=== PATIENT | female | born 1935 | race Caucasian/White ===

== ENCOUNTER 2016-11-29 14:42 | Outpatient (CLI) | payer MEDICARE | END 2016-11-29 14:43 | disposition home or self-care (01) | DX: I48.91 Unspecified atrial fibrillation (principal) ==

== ENCOUNTER 2016-12-06 14:24 | Outpatient (CLI) | payer MEDICARE | END 2016-12-06 14:25 | disposition home or self-care (01) | DX: I48.91 Unspecified atrial fibrillation (principal) ==

== ENCOUNTER 2016-12-24 08:00 | Outpatient (CLI) | payer MEDICARE | END 2016-12-24 08:01 | disposition home or self-care (01) | DX: I48.91 Unspecified atrial fibrillation (principal) ==

== ENCOUNTER 2017-01-11 15:21 | Outpatient (CLI) | payer MEDICARE | END 2017-01-11 15:22 | disposition home or self-care (01) | DX: I48.91 Unspecified atrial fibrillation (principal) ==

== ENCOUNTER 2017-01-28 14:13 | Outpatient (CLI) | payer MEDICARE | END 2017-01-28 14:14 | disposition home or self-care (01) | DX: I48.91 Unspecified atrial fibrillation (principal) ==

== ENCOUNTER 2017-02-27 14:41 | Outpatient (CLI) | payer MEDICARE | END 2017-02-27 14:42 | disposition home or self-care (01) | DX: I48.91 Unspecified atrial fibrillation (principal) ==

== ENCOUNTER 2017-03-18 13:18 | Outpatient (CLI) | payer MEDICARE | END 2017-03-18 13:19 | disposition home or self-care (01) | DX: I48.91 Unspecified atrial fibrillation (principal) ==

== ENCOUNTER 2017-03-26 13:52 | Outpatient (CLI) | payer MEDICARE | END 2017-03-26 13:53 | disposition home or self-care (01) | DX: I48.91 Unspecified atrial fibrillation (principal) ==

== ENCOUNTER 2017-04-02 12:57 | Outpatient (CLI) | payer MEDICARE | END 2017-04-02 12:58 | disposition home or self-care (01) | LOC: LAB.F 12:57 | PROVIDERS: ATTEND Internal Medicine | DX: I48.91 Unspecified atrial fibrillation (principal) | CPT/HCPCS: 85610 ==

== ENCOUNTER 2017-04-17 14:10 | Outpatient (CLI) | payer MEDICARE ==
[2017-04-17 18:17] LABS: BUN - BLOOD UREA NITROGEN 21 mg/dL (6-20); CALCIUM 9.4 mg/dL (8.5-10.3); CARBON DIOXIDE - CO2 26 mmol/L (21-32); CHLORIDE 103 mmol/L (101-111); GFR - MDRD 53 (>89); GLUCOSE 121 mg/dL (70-100); POTASSIUM 4.2 mmol/L (3.5-5.0); SODIUM 139 mmol/L (135-145)
== END 2017-04-17 14:11 | disposition home or self-care (01) ==
LOC: LAB.F 14:10
PROVIDERS: ATTEND Internal Medicine
DX: I48.91 Unspecified atrial fibrillation (principal)
CPT/HCPCS: 36415; 80048; 80162; 85610

== ENCOUNTER 2017-05-02 14:20 | Outpatient (CLI) | payer MEDICARE | END 2017-05-02 14:21 | disposition home or self-care (01) | LOC: LAB.F 14:20 | PROVIDERS: ATTEND Internal Medicine | DX: I48.91 Unspecified atrial fibrillation (principal) | CPT/HCPCS: 85610 ==

== ENCOUNTER 2017-05-03 11:52 | Outpatient (CLI) | payer MEDICARE ==
[2017-05-03 12:25] LABS: BASOPHILS % (AUTO) 0.5 %; EOSINOPHILS % (AUTO) 2.2 %; HCT - HEMATOCRIT 32.5 % (37.0-47.0); HGB - HEMOGLOBIN 11.3 g/dL (12.0-16.0); LYMPHOCYTES % (AUTO) 25.4 %; MEAN CORPUSCULAR HEMOGLOBIN 31.7 pg (27.0-31.0); MEAN CORPUSCULAR HGB CONC 34.8 g/dL (32.0-36.0); MEAN CORPUSCULAR VOLUME 91.2 fL (81.0-99.0); MONOCYTES % (AUTO) 8.1 %; NEUTROPHILS % (AUTO) 63.8 %; RED BLOOD COUNT 3.56 10^6/uL (4.20-5.40); RED CELL DISTRIBUTION WIDTH 22.8 % (12.0-15.0); UNCORRECTED WHITE BLOOD COUNT 13.7 x10^3/uL; WHITE BLOOD COUNT 13.7 x10^3/uL (4.8-10.8)
[2017-05-03 12:41] LABS: ALBUMIN/GLOBULIN RATIO 1.9 (1.0-2.2); BILIRUBIN,TOTAL 1.2 mg/dL (0.2-1.0); CALCIUM 9.7 mg/dL (8.5-10.3); CREATININE 0.9 mg/dL (0.4-1.0); POTASSIUM 4.6 mmol/L (3.5-5.0)
[2017-05-03 12:50] LABS: BAND NEUTROPHILS % (MANUAL) 5 %; BASOPHILS % (MANUAL) 4 %; EOSINOPHILS % (MANUAL) 2 %; LYMPHOCYTES % (MANUAL) 31 %; NEUTROPHILS % (MANUAL) 37 %; TOTAL CELLS COUNTED 100
[2017-05-03 12:51] LABS: NP AUTO DIFFERENTIAL? YES
[2017-05-03 12:52] LABS: NP MAN DIFFERENTIAL? NO
== END 2017-05-03 11:53 | disposition home or self-care (01) ==
LOC: LAB 11:52
PROVIDERS: ATTEND Internal Medicine
DX: R10.9 Unspecified abdominal pain (principal)
CPT/HCPCS: 36415; 80053; 85025; 87077; 87086

== ENCOUNTER 2017-05-08 14:58 | Outpatient (CLI) | payer MEDICARE ==
--- NOTE | 2017-05-09 19:33 | XRAY Report ---
AP PELVIS: 05/08/2017 CLINICAL HISTORY: Patient has right low back pain. FINDINGS: AP pelvis vascular calcification is detected in the branches of the iliac arteries within the pelvis. There are some calcifications within the uterus. These measure 1.5 cm and 1.5 cm, respectively. These most likely represent small calcified fibroids. SI joints are normal. Hips show no significant abnormality. Mild spurring is noted in the lumbar spine at L4 and L5. Mild disk space narrowing is noted at L4-5. There are small calculi noted in the lower pole of each kidney. In the right lower pole, there is a 0.7 cm calculus. In the left lower pole, there is a 0.5 cm calculus. The bones of the pelvis are quite dense. This may be a result of renal osteodystrophy or myelofibrosis/myeloid metaplasia. IMPRESSION: 1. SI JOINTS AND HIPS SHOW NO SIGNIFICANT ABNORMALITY. 2. TWO CALCIFICATIONS ARE NOTED IN THE UTERUS, EACH MEASURING 1.5 CM. THEY PROBABLY RESIDE WITHIN THE UTERINE FIBROIDS. 3. A 0.7 CM CALCULUS IS NOTED IN THE LOWER POLE OF THE RIGHT KIDNEY, A 0.5 CM CALCULUS IS NOTED IN THE LOWER POLE OF THE LEFT KIDNEY. 4. MILD OSTEOARTHRITIS IS SEEN IN THE LOWER LUMBAR SPINE. 5. THE BONES OF THE PELVIS ARE DENSER THAN NORMAL. THIS MAY BE A RESULT OF RENAL OSTEODYSTROPHY VERSUS MYELOFIBROSIS/MYELOID METAPLASIA. JOB #: [id number] EXT JOB #: [id number] ERICA
--- NOTE | 2017-05-09 19:45 | XRAY Report ---
LUMBAR SPINE: 05/08/2017 CLINICAL HISTORY: Abdominal organs and soft tissue demonstrate multiple small calculi noted in the kidneys bilaterally. There are nine small calculi at least in the right kidney, varying in size from a few millimeters to 0.7 cm. In the left kidney, there are three calculi noted, varying in size from a few millimeters to 0.5 cm. Moderate degree of splenomegaly is noted. Vascular calcification is noted in the abdominal aorta and its iliac branches. Mild anterior spurring is detected in the lumbar spine. Moderate degree of disk space narrowing is noted at L2-3 and L4-5. Minor Schmorl's node deformities are seen along the superior surface of L3, L4, and L5. Mild progression of degenerative disk disease is seen at L2-3 and L4-5 since preceding exam of 08/04/2009. There is a sclerotic lesion noted superimposed over the right side of T12. It resides in the soft tissues of the anterior abdomen immediately anterior to the right lobe of the liver. This was seen on prior CT exam of 10/27/2016. On prior CT exam and on present plain film exams, both of the pelvis and lumbar spine, the bones appear more sclerotic than usually noted. This raises concern either of a renal osteodystrophy or myelofibrosis/myeloid metaplasia. IMPRESSION: 1. GENERALIZED SCLEROSIS IS NOTED IN THE BONES OF THE LUMBAR SPINE AND PELVIS. PRIMARY CONSIDERATION IS MYELOFIBROSIS/MYELOID METAPLASIA. THERE IS ASSOCIATED MODERATE DEGREE OF SPLENOMEGALY SEEN. 2. DEGENERATIVE DISK DISEASE IS NOTED AT L2-3 AND L4-5 WITH PROGRESSION COMPARED TO PRECEDING LUMBAR SPINE EXAM OF 08/04/2009. 3. MULTIPLE BILATERAL SMALL RENAL CALCULI ARE NOTED DESCRIBED ABOVE. 4. SOFT TISSUE CALCIFICATION WITHIN THE ANTERIOR ABDOMEN IS SEEN SUPERIMPOSED OVER THE RIGHT SIDE OF T12. JOB #: [id number] EXT JOB #: [id number] [facility] [place] [facility]
== END 2017-05-08 14:59 | disposition home or self-care (01) ==
LOC: DI 14:58
PROVIDERS: ATTEND Internal Medicine
DX: M51.36 Other intervertebral disc degeneration, lumbar region (principal); M89.9 Disorder of bone, unspecified; N20.0 Calculus of kidney; N85.8 Other specified noninflammatory disorders of uterus; M47.896 Other spondylosis, lumbar region; R16.1 Splenomegaly, not elsewhere classified
CPT/HCPCS: 72100; 72170

== ENCOUNTER 2017-05-22 12:06 | Outpatient (CLI) | payer MEDICARE ==
--- NOTE | 2017-05-22 13:05 | XRAY Report ---
TWO-VIEW CHEST: 05/22/2017 CLINICAL INDICATION: Hypoxemia, cough, lethargy. COMPARISON: 10/29/2016 FINDINGS: Frontal and lateral views of the chest demonstrate a normal cardiac silhouette. Left subc lavian dual-chamber pacemaker is stable. The lungs are now clear. Previously seen right middle lobe infiltrate and effusion have resolved. No new consolidation, effusion, or pneumothorax is present. IMPRESSION: NO EVIDENCE OF ACUTE CARDIOPULMONARY DISEASE. JOB #: [id number] EXT JOB #:[id number]
== END 2017-05-22 12:07 | disposition home or self-care (01) ==
LOC: DI 12:06
PROVIDERS: ATTEND Internal Medicine
DX: R09.02 Hypoxemia (principal)
CPT/HCPCS: 71020

== ENCOUNTER 2017-05-28 13:56 | Outpatient (CLI) | payer MEDICARE | END 2017-05-28 13:57 | disposition home or self-care (01) | DX: N30.90 Cystitis, unspecified without hematuria (principal) ==

== ENCOUNTER 2017-06-11 08:00 | Outpatient (CLI) | payer MEDICARE | END 2017-06-11 08:01 | disposition home or self-care (01) | LOC: LAB.R 08:00 | PROVIDERS: ATTEND Internal Medicine | DX: R82.5 Elevated urine levels of drugs, medicaments and biological substances (principal); R30.0 Dysuria | CPT/HCPCS: 87086 ==

== ENCOUNTER 2017-06-12 14:59 | Outpatient (CLI) | payer MEDICARE | END 2017-06-12 15:00 | disposition home or self-care (01) | LOC: LAB.F 14:59 | PROVIDERS: ATTEND Internal Medicine | DX: I10 Essential (primary) hypertension (principal); R06.00 Dyspnea, unspecified; R53.83 Other fatigue; Z79.899 Other long term (current) drug therapy | CPT/HCPCS: 36415; 80162; 83880; 85651; 86140 ==

== ENCOUNTER 2017-06-13 13:22 | Outpatient (CLI) | payer MEDICARE | END 2017-06-13 13:23 | disposition home or self-care (01) | LOC: LAB.F 13:22 | PROVIDERS: ATTEND Internal Medicine | DX: I48.91 Unspecified atrial fibrillation (principal) | CPT/HCPCS: 85610 ==

== ENCOUNTER 2017-07-11 13:50 | Outpatient (CLI) | payer MEDICARE | END 2017-07-11 13:51 | disposition home or self-care (01) | LOC: LAB.F 13:50 | PROVIDERS: ATTEND Internal Medicine | DX: I48.91 Unspecified atrial fibrillation (principal) | CPT/HCPCS: 85610 ==

== ENCOUNTER 2017-07-25 13:54 | Outpatient (CLI) | payer MEDICARE | END 2017-07-25 13:55 | disposition home or self-care (01) | LOC: LAB.F 13:54 | PROVIDERS: ATTEND Internal Medicine | DX: I48.91 Unspecified atrial fibrillation (principal) | CPT/HCPCS: 85610 ==

== ENCOUNTER 2017-08-01 15:10 | Outpatient (CLI) | payer MEDICARE | END 2017-08-01 15:11 | disposition home or self-care (01) | LOC: LAB.F 15:10 | PROVIDERS: ATTEND Internal Medicine | DX: I48.91 Unspecified atrial fibrillation (principal) | CPT/HCPCS: 85610 ==

== ENCOUNTER 2017-09-02 15:02 | Outpatient (CLI) | payer MEDICARE | END 2017-09-02 15:03 | disposition home or self-care (01) | LOC: LAB.F 15:02 | PROVIDERS: ATTEND Internal Medicine | DX: I48.91 Unspecified atrial fibrillation (principal) | CPT/HCPCS: 85610 ==

== ENCOUNTER 2017-09-30 13:28 | Outpatient (CLI) | payer MEDICARE | END 2017-09-30 13:29 | disposition home or self-care (01) | LOC: LAB.F 13:28 | PROVIDERS: ATTEND Internal Medicine | DX: I48.91 Unspecified atrial fibrillation (principal) | CPT/HCPCS: 85610 ==

== ENCOUNTER 2017-10-14 15:05 | Outpatient (CLI) | payer MEDICARE | END 2017-10-14 15:06 | disposition home or self-care (01) | LOC: LAB.F 15:05 | PROVIDERS: ATTEND Internal Medicine | DX: I48.91 Unspecified atrial fibrillation (principal) | CPT/HCPCS: 85610 ==

== ENCOUNTER 2017-11-04 11:42 | Outpatient (CLI) | payer MEDICARE ==
--- NOTE | 2017-11-07 12:28 | Ultrasound Report ---
[address] [address] DATE OF SERVICE: 11/04/2017 Physician: Josr Morales MD ANKLE BRACHIAL INDEX: 11/04/2017 CLINICAL INDICATION: Bilateral claudication. TECHNIQUE: Real-time sonographic vascular imaging was performed by the galley boy through the [] utilizing both color-flow and Doppler flow analysis. Multiple event sales representative static images were saved for review. 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 IMPRESSION: MILDLY DECREASED LEFT DAYSI. NORMAL RIGHT DAYSI. TY/ TD: 11[facility]04/2017 17[facility]00 [facility]
== END 2017-11-04 11:43 | disposition home or self-care (01) ==
LOC: DI 11:42
PROVIDERS: ATTEND Physician Assistant Medical
DX: I73.9 Peripheral vascular disease, unspecified (principal); G47.62 Sleep related leg cramps
CPT/HCPCS: 93922

== ENCOUNTER 2017-11-07 15:04 | Outpatient (CLI) | payer MEDICARE | END 2017-11-07 15:05 | disposition home or self-care (01) | LOC: LAB.F 15:04 | PROVIDERS: ATTEND Internal Medicine | DX: I48.91 Unspecified atrial fibrillation (principal) | CPT/HCPCS: 85610 ==

== ENCOUNTER 2017-11-23 12:42 | Outpatient (CLI) | payer MEDICARE ==
[~2017-11-23 12:42] MED LIST: IOPAMIDOL-300 100 ML VIAL ONE; IOPAMIDOL-300 50 ML VIAL ONE
[2017-11-23] MEDS ORDERED: IOPAMIDOL-300 50 ML VIAL PO ONE (15:07)
[2017-11-23] MEDS ORDERED: IOPAMIDOL-300 100 ML VIAL IVP ONE (15:07)
--- NOTE | 2017-11-23 17:12 | CT Report ---
EXAM: CT ABDOMEN AND PELVIS EXAM DATE: 11/23/2017 03:17 PM. CLINICAL HISTORY: Abdominal pain. COMPARISONS: None. TECHNIQUE: Routine helical CT imaging was performed through the abdomen and pelvis. IV contrast: 100M L OF ISOVUE 300. Enteric contrast: Positive. Reconstructions: Coronal and sagittal. In accordance with CT protocol optimization, one or more of the following dose reduction techniques w ere utilized for this exam: automated exposure control, adjustment of mA and/or KV based on patient s ize, or use of iterative reconstructive technique. FINDINGS: Lung Bases: Unremarkable. Liver: There are several fluid density foci within the liver which likely represent cysts. There is a peripherally calcified lesion at the anterior margin of the left hepatic lobe. Gallbladder/Bile Ducts: Unremarkable. Spleen: There is splenomegaly. Pancreas: Normal. Adrenal Glands: Normal. Kidneys: There is bilateral nephrolithiasis. No evidence of distal obstructing stone or hydronephrosi s. Peritoneal Cavity/Bowel: Stomach and small bowel demonstrate no acute abnormalities. There are no enl arged mesenteric or retroperitoneal lymph nodes. There is a small amount of free fluid within the pel vis. There is moderate stool within colon. No evidence of appendicitis. Pelvic Organs: There are calcified uterine fibroids. No significant adnexal abnormalities are seen. U rinary bladder is unremarkable. Vasculature: No aneurysms or other significant abnormality. Bones: There is diffuse bony sclerosis with discrete lytic lesions. Other: None. IMPRESSION: 1. There is splenomegaly. No enlarged lymph nodes are seen. 2. Fluid density foci within the liver likely represent cysts. 3. There is nephrolithiasis. No evidence of distal obstructing stone or hydronephrosis. 4. There are calcified uterine fibroids. 5. There is moderate stool within distal colon. 6. There is diffuse bony sclerosis with discrete lytic lesions. [facility] Referring Provider Line: [phone] SITE ID: [id number]
== END 2017-11-23 12:43 | disposition home or self-care (01) ==
LOC: DI 12:42
PROVIDERS: ATTEND Physician Assistant Medical
DX: R16.1 Splenomegaly, not elsewhere classified (principal); N20.0 Calculus of kidney; D25.9 Leiomyoma of uterus, unspecified; M89.9 Disorder of bone, unspecified
CPT/HCPCS: 74177; Q9967

== ENCOUNTER 2017-12-03 14:49 | Outpatient (CLI) | payer MEDICARE | END 2017-12-03 14:50 | disposition home or self-care (01) | LOC: LAB.F 14:49 | PROVIDERS: ATTEND Internal Medicine | DX: I48.91 Unspecified atrial fibrillation (principal) | CPT/HCPCS: 85610 ==

== ENCOUNTER 2017-12-19 14:03 | Outpatient (CLI) | payer MEDICARE | END 2017-12-19 14:04 | disposition home or self-care (01) | LOC: LAB.F 14:03 | PROVIDERS: ATTEND Internal Medicine | DX: I48.91 Unspecified atrial fibrillation (principal) | CPT/HCPCS: 85610 ==

== ENCOUNTER 2018-01-03 10:20 | Outpatient (CLI) | payer MEDICARE | END 2018-01-03 10:21 | disposition home or self-care (01) | LOC: LAB.F 10:20 | PROVIDERS: ATTEND Internal Medicine | DX: I48.91 Unspecified atrial fibrillation (principal) | CPT/HCPCS: 85610 ==

== ENCOUNTER 2018-01-09 13:12 | Outpatient (CLI) | payer MEDICARE ==
[2018-01-09 17:33] LABS: PT - PROTHROMBIN TIME 22.3 secs (9.9-12.6)
== END 2018-01-09 13:13 | disposition home or self-care (01) ==
LOC: LAB.F 13:12
PROVIDERS: ATTEND Internal Medicine
DX: I48.91 Unspecified atrial fibrillation (principal)
CPT/HCPCS: 36415; 85610

== ENCOUNTER 2018-01-17 10:10 | Outpatient (CLI) | payer MEDICARE | END 2018-01-17 10:11 | disposition home or self-care (01) | LOC: LAB.F 10:10 | PROVIDERS: ATTEND Dermatology MOHS-Micrographic Surgery | DX: Z01.812 Encounter for preprocedural laboratory examination (principal) | CPT/HCPCS: 85610 ==

== ENCOUNTER 2018-02-17 14:32 | Outpatient (CLI) | payer MEDICARE | END 2018-02-17 14:33 | disposition home or self-care (01) | LOC: LAB.F 14:32 | PROVIDERS: ATTEND Internal Medicine | DX: I48.91 Unspecified atrial fibrillation (principal) | CPT/HCPCS: 85610 ==

== ENCOUNTER 2018-02-19 16:50 | Outpatient (CLI) | payer MEDICARE ==
[2018-02-19 17:15] LABS: ALBUMIN 5.2 g/dL (3.2-5.5); ALBUMIN/GLOBULIN RATIO 1.8 (1.0-2.2); BILIRUBIN,TOTAL 1.1 mg/dL (0.2-1.0); CALCIUM 9.8 mg/dL (8.5-10.3); TOTAL PROTEIN 8.1 g/dL (6.7-8.2)
[2018-02-19 18:02] LABS: BASOPHILS % (AUTO) 2.3 %; EOSINOPHILS % (AUTO) 0.8 %; HGB - HEMOGLOBIN 12.3 g/dL (12.0-16.0); LYMPHOCYTES % (AUTO) 16.2 %; MEAN CORPUSCULAR HGB CONC 34.1 g/dL (32.0-36.0); MEAN PLATELET VOLUME 7.7 fL (7.9-10.8); MONOCYTES % (AUTO) 8.7 %; PLT - PLATELET COUNT 200 10^3/uL (130-450); RED CELL DISTRIBUTION WIDTH 22.3 % (12.0-15.0)
[2018-02-19 18:15] LABS: ABNORMAL LYMPHS % (MANUAL) 0 %
[2018-02-19 18:47] LABS: BAND NEUTROPHILS % (MANUAL) 3 %; BASOPHILS # (MANUAL) 0.3 10^3/uL (0-0.1); BASOPHILS % (MANUAL) 1 %; EOSINOPHILS # (MANUAL) 0.3 10^3/uL (0-0.7); LYMPHOCYTES # (MANUAL) 5.5 10^3/uL (1.5-3.5); LYMPHOCYTES % (MANUAL) 19 %; METAMYELOCYTES % (MANUAL) 1 %; MONOCYTES # (MANUAL) 1.7 10^3/uL (0.0-1.0); MYELOCYTES % (MANUAL) 2 %; NEUTROPHILS # (MANUAL) 20.3 10^3/uL (1.5-6.6); NEUTROPHILS % (MANUAL) 67 %; PLATELET ESTIMATE, MANUAL NORMAL (130-450,000) (NORMAL); PLATELET MORPHOLOGY NORMAL APPEARANCE (NORMAL)
[2018-02-19 18:48] LABS: DIFFERENTIAL COMMENT MANUAL DIFFERENTIAL
--- NOTE | 2018-02-20 11:52 | XRAY Report ---
CHEST, TWO VIEWS: 02/19/2018 HISTORY: Shortness of breath. COMPARISON: 05/22/2017. FINDINGS: The heart is borderline in size. Dual-lead left subclavian transvenous pacemaker in place. No pleural effusion or pneumothorax. Increased density along the right heart border suspicious for right middle lobe air space process. Lungs otherwise clear. Mixed sclerotic and lytic lesions in the bony structures as previously demonstrated by CT. Anterior upper abdominal calcification, also previously seen by CT. IMPRESSION: FINDINGS WORRISOME FOR RIGHT MIDDLE LOBE AIRSPACE PROCESS. SUGGEST FOLLOWUP CHEST X-RAY IN 4-6 WEEKS AFTER ANY APPROPRIATE MEDICAL THERAPY. TD: 02/20/2018 11:51 ERICA
== END 2018-02-19 16:51 | disposition home or self-care (01) ==
LOC: DI 16:50
PROVIDERS: ATTEND Internal Medicine
DX: R06.00 Dyspnea, unspecified (principal)
CPT/HCPCS: 36415; 71046; 80053; 85025

== ENCOUNTER 2018-03-12 14:21 | Outpatient (CLI) | payer MEDICARE | END 2018-03-12 14:22 | disposition home or self-care (01) | LOC: LAB.F 14:21 | PROVIDERS: ATTEND Internal Medicine | DX: I48.91 Unspecified atrial fibrillation (principal) | CPT/HCPCS: 85610 ==

== ENCOUNTER 2018-03-31 14:18 | Outpatient (CLI) | payer MEDICARE | END 2018-03-31 14:19 | disposition home or self-care (01) | LOC: LAB.F 14:18 | PROVIDERS: ATTEND Internal Medicine | DX: I48.91 Unspecified atrial fibrillation (principal) | CPT/HCPCS: 85610 ==

== ENCOUNTER 2018-04-08 13:44 | Outpatient (CLI) | payer MEDICARE | END 2018-04-08 13:45 | disposition home or self-care (01) | LOC: LAB.F 13:44 | PROVIDERS: ATTEND Internal Medicine | DX: I48.91 Unspecified atrial fibrillation (principal) | CPT/HCPCS: 85610 ==

== ENCOUNTER 2018-04-24 14:46 | Outpatient (CLI) | payer MEDICARE | END 2018-04-24 14:47 | disposition home or self-care (01) | LOC: LAB.F 14:46 | PROVIDERS: ATTEND Internal Medicine | DX: I48.91 Unspecified atrial fibrillation (principal) | CPT/HCPCS: 85610 ==

== ENCOUNTER 2018-05-09 00:40 | Outpatient (CLI) | payer MEDICARE | END 2018-05-09 00:41 | disposition critical access hospital (66) | LOC: EMS 00:40 | PROVIDERS: ATTEND Surgery | DX: R42 Dizziness and giddiness (principal); R11.0 Nausea; R53.1 Weakness | CPT/HCPCS: A0425; A0429 ==

== ENCOUNTER 2018-05-09 01:21 | Emergency (ER) | payer MEDICARE ==
[2018-05-09 02:10] LABS: BILIRUBIN,URINE NEGATIVE (NEGATIVE); GLUCOSE, URINE (UA) NEGATIVE (NEGATIVE); KETONES,URINE (UA) NEGATIVE (NEGATIVE); LEUKOCYTE ESTERASE, URINE TRACE (NEGATIVE); NITRITE,URINE NEGATIVE (NEGATIVE); OCCULT BLOOD,URINE NEGATIVE (NEGATIVE); PH,URINE 6.5 PH (5.0-7.5); PROTEIN,URINE NEGATIVE (NEGATIVE); UROBILINOGEN,URINE 0.2 (NORMAL) E.U./dL (NORMAL)
[2018-05-09 02:11] LABS: CLARITY,URINE CLEAR (CLEAR)
--- NOTE | 2018-05-09 02:13 | ED Physician Documentation ---
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 denies h/o similar symptoms Review of Systems Constitutional: reports: Reviewed and negative Eyes: reports: Reviewed and negative Ears: reports: Reviewed and negative Nose: reports: Reviewed and negative Cardiac: reports: Reviewed and negative Respiratory: reports: Reviewed and negative GI: reports: Nausea. denies: Abdominal Pain, Vomiting : reports: Frequency. denies: Dysuria PD PAST MEDICAL HISTORY - Past Medical History Cardiovascular: Atrial fibrillation Respiratory: None Endocrine/Autoimmune: None GI: GERD : None HEENT: None Psych: None Musculoskeletal: None - Past Surgical History Past Surgical History: Yes Cardiovascular: Pacemaker Derm: Skin cancer surgery - Present Medications Home Medications: Ambulatory Orders Medication Instructions Recorded Confirmed Acetaminophen [Pain Reliever] 325 mg PO Q6H PRN 04/02/13 03/18/18 Digoxin 125 mcg PO DAILY 04/02/13 03/18/18 Warfarin [Coumadin] 5 mg PO DAILY 06/30/13 03/18/18 Diltiazem HCl [Cartia Xt] 300 mg PO DAILY 04/19/15 03/18/18 Ruxolitinib Phosphate [Jakafi] 10 mg PO BID 02/19/17 03/18/18 Meclizine HCl 25 mg PO Q6HR PRN #20 tablet 05/09/18 Nitrofurantoin [Macrobid] 100 mg PO BID #14 capsule 05/09/18 Ondansetron Odt [Zofran] 4 mg TL Q6H PRN #10 tablet 05/09/18 - Allergies Allergies/Adverse Reactions: Allergies Allergy/AdvReac Type Severity Reaction Status Date / Time clopidogrel bisulfate * Allergy Unknown unknown Verified 05/09/18 01:30 [From Plavix] - Social History Does the pt smoke?: No Smoking Status: Never smoker Does the pt have substance abuse?: No - Immunizations Immunizations: TDAP >10years/unknown PD ED PE NORMAL - Vitals Vital signs reviewed: Yes - General General: Alert and oriented X 3, No acute distress, Well developed/nourished - HEENT HEENT: PERRL, EOMI, Ears normal, Moist mucous membranes - Neck Neck: Supple, no meningeal sign - Cardiac Cardiac: RRR, No murmur, No gallop, No rub - Respiratory Respiratory: No respiratory distress, Clear bilaterally - Abdomen Abdomen: Soft, Non tender - Neuro Neuro: Alert and oriented X 3, visual basic developer 2-12 intact, No motor deficit, No sensory deficit, Normal speech Eye Opening: Spontaneous Motor: Obeys Commands Verbal: Oriented GCS Score: 15 Results - Vitals Vitals: Oxygen O2 Source Room air - EKG (time done) No standard instances Rate: Rate (enter#) (70) Rhythm: Paced [place]: Normal Intervals: Normal MT QRS: Normal Ischemia: Normal ST segments - Labs Labs: Microbiology 05/09/18 01:50 Urine Culture - Preliminary Urine,Clean Catch Laboratory Tests 05/09/18 05/09/18 05/09/18 01:50 02:25 02:25 WBC RBC Hgb Hct MCV MCH MCHC RDW Plt Count MPV Neut # (Auto) Lymph # (Auto) Luna # (Auto) Eos # (Auto) Baso # (Auto) Absolute Nucleated RBC Total Counted Band Neuts % (Manual) Abnorm Lymph % (Manual) Metamyelocytes % Myelocytes % Nucleated RBC % Neutrophils # (Manual) Lymphocytes # (Manual) Monocytes # (Manual) Eosinophils # (Manual) Basophils # (Manual) Nucleated RBCs Differential Comment Platelet Estimate RBC Morph Micro Appear Sodium Potassium Chloride Carbon Dioxide Anion Gap BUN Creatinine Estimated GFR (MDRD) Glucose Calcium Total Bilirubin AST ALT Alkaline Phosphatase Total Creatine Kinase 57 CK-MB (CK-2) 1.9 Troponin I < 0.04 Total Protein Albumin Globulin Albumin/Globulin Ratio Lipase Urine Color YELLOW Urine Clarity CLEAR Urine pH 6.5 Ur Specific [place] 1.010 Urine Protein NEGATIVE Urine Glucose (UA) NEGATIVE Urine Ketones NEGATIVE Urine Occult Blood NEGATIVE Urine Nitrite NEGATIVE Urine Bilirubin NEGATIVE Urine Urobilinogen 0.2 (NORMAL) Ur Leukocyte Esterase TRACE H Urine RBC 0-5 Urine WBC 6-10 H Ur Squamous Epith Cells FEW Squamous Urine Bacteria Few Urine Culture Comments INDICATED Last Dose Date Last Dose Time Digoxin 05/09/18 05/09/18 05/09/18 02:25 02:25 02:25 WBC 11.7 H RBC 3.59 L Hgb 11.1 L Hct 32.3 L MCV 90.0 MCH 31.0 MCHC 34.4 RDW 21.0 H Plt Count 119 L MPV 7.4 L Neut # (Auto) Not Reportable Lymph # (Auto) Not Reportable Luna # (Auto) Not Reportable Eos # (Auto) Not Reportable Baso # (Auto) Not Reportable Absolute Nucleated RBC Not Reportable Total Counted 100 Band Neuts % (Manual) 9 Abnorm Lymph % (Manual) 0 Metamyelocytes % 2 H Myelocytes % 2 H Nucleated RBC % Not Reportable Neutrophils # (Manual) 7.8 H Lymphocytes # (Manual) 2.1 Monocytes # (Manual) 0.9 Eosinophils # (Manual) 0.4 Basophils # (Manual) 0.0 Nucleated RBCs 1 Differential Comment MANUAL DIFFERENTIAL Platelet Estimate DECREASED (<130,000) RBC Morph Micro Appear 1+ TEARDROP CELLS Sodium 135 Potassium 4.1 Chloride 102 Carbon Dioxide 26 Anion Gap 7.0 BUN 27 H Creatinine 1.0 Estimated GFR (MDRD) 53 L Glucose 109 H Calcium 9.2 Total Bilirubin 0.9 AST 29 ALT 22 Alkaline Phosphatase 54 Total Creatine Kinase CK-MB (CK-2) Troponin I Total Protein 7.0 Albumin 4.4 Globulin 2.6 Albumin/Globulin Ratio 1.7 Lipase 36 Urine Color Urine Clarity Urine pH Ur Specific [place] Urine Protein Urine Glucose (UA) Urine Ketones Urine Occult Blood Urine Nitrite Urine Bilirubin Urine Urobilinogen Ur Leukocyte Esterase Urine RBC Urine WBC Ur Squamous Epith Cells Urine Bacteria Urine Culture Comments Last Dose Date UNKNOWN Last Dose Time UNKNOWN Digoxin 0.7 PD MEDICAL DECISION MAKING - ED course Complexity details: reviewed results, re-evaluated patient, considered differential, d/w patient, d/w family ED course: on reevaluation, after tsts resulted and administered zofran and antivert, patient reported improvement in symptoms. NAD prior to discharge. - Sepsis Event Vital Signs: Oxygen O2 Source Room air Departure - Departure Disposition: 01 Home, Self Care Clinical Impression: Dizziness Condition: Good Instructions: ED Dizziness UKO, Meclizine, ED Vertigo Unspecified Follow-Up: Leodan Eric MD [Primary Care Provider] - Within 3 Days Prescriptions: Meclizine HCl 25 mg PO Q6HR PRN #20 tablet PRN Reason: Dizziness Nitrofurantoin [Macrobid] 100 mg PO BID #14 capsule Ondansetron Odt [Zofran] 4 mg TL Q6H PRN #10 tablet PRN Reason: Nausea / Vomiting Discharge Date/Time: 05/09/18 04:01
[2018-05-09 02:17] LABS: BACTERIA,URINE Few /HPF (None Seen); RBC,URINE 0-5 /HPF (0-5); SQUAMOUS EPITHELIAL CELL,UR FEW Squamous (<= Few)
[2018-05-09] MEDS ORDERED: MECLIZINE 12.5 MG TABLET PO STA (02:34)
[2018-05-09] MEDS ORDERED: ONDANSETRON ODT 4 MG TABLET TL STA (02:35)
[2018-05-09 02:52] LABS: ALBUMIN 4.4 g/dL (3.2-5.5); ALBUMIN/GLOBULIN RATIO 1.7 (1.0-2.2); BILIRUBIN,TOTAL 0.9 mg/dL (0.2-1.0); CALCIUM 9.2 mg/dL (8.5-10.3)
[2018-05-09 02:54] LABS: BASOPHILS % (AUTO) 2.5 %; EOSINOPHILS % (AUTO) 1.8 %; HGB - HEMOGLOBIN 11.1 g/dL (12.0-16.0); LYMPHOCYTES % (AUTO) 17.6 %; MEAN CORPUSCULAR HGB CONC 34.4 g/dL (32.0-36.0); MEAN PLATELET VOLUME 7.4 fL (7.9-10.8); MONOCYTES % (AUTO) 8.2 %; NEUTROPHILS % (AUTO) 69.9 %; PLT - PLATELET COUNT 119 10^3/uL (130-450); RED BLOOD COUNT 3.59 10^6/uL (4.20-5.40); TROPONIN I < 0.04 ng/mL (<0.49); WHITE BLOOD COUNT 11.7 x10^3/uL (4.8-10.8)
[2018-05-09 02:56] LABS: DIGOXIN 0.7 ng/mL
[2018-05-09 02:57] LABS: ABNORMAL LYMPHS % (MANUAL) 0 %
[2018-05-09 02:58] LABS: CREATINE KINASE MB 1.9 ng/mL (0.6-6.3)
[2018-05-09 03:20] LABS: BAND NEUTROPHILS % (MANUAL) 9 %; DIFFERENTIAL COMMENT MANUAL DIFFERENTIAL; EOSINOPHILS # (MANUAL) 0.4 10^3/uL (0-0.7); LYMPHOCYTES # (MANUAL) 2.1 10^3/uL (1.5-3.5); LYMPHOCYTES % (MANUAL) 18 %; METAMYELOCYTES % (MANUAL) 2 %; MONOCYTES # (MANUAL) 0.9 10^3/uL (0.0-1.0); MYELOCYTES % (MANUAL) 2 %; NEUTROPHILS # (MANUAL) 7.8 10^3/uL (1.5-6.6); NEUTROPHILS % (MANUAL) 58 %; PLATELET ESTIMATE, MANUAL DECREASED (<130,000) (NORMAL)
[2018-05-09] MEDS ORDERED: NITROFURANTOIN MACRO 100 MG CAPSULE PO STA (03:24)
[2018-05-09 03:33] VITALS: BP 149/76
== END 2018-05-09 04:01 | disposition home or self-care (01) ==
LOC: EDUNIT# → ED 01:21
DX: R42 Dizziness and giddiness (principal); R11.0 Nausea; R35.0 Frequency of micturition; I48.91 Unspecified atrial fibrillation; K21.9 Gastro-esophageal reflux disease without esophagitis; Z95.0 Presence of cardiac pacemaker; Z79.01 Long term (current) use of anticoagulants
CPT/HCPCS: 80053; 80162; 81001; 82550; 82553; 83690; 84484; 85025; 87086; 93005; 99283; 99284; A9270; Q0162; 36415

== ENCOUNTER 2018-05-20 09:48 | Outpatient (CLI) | payer MEDICARE | END 2018-05-20 09:49 | disposition home or self-care (01) | LOC: LAB 09:48 | PROVIDERS: ATTEND Internal Medicine | DX: I48.91 Unspecified atrial fibrillation (principal) | CPT/HCPCS: 85610 ==

== ENCOUNTER 2018-06-03 13:35 | Outpatient (CLI) | payer MEDICARE | END 2018-06-03 13:36 | disposition home or self-care (01) | LOC: LAB.F 13:35 | PROVIDERS: ATTEND Internal Medicine | DX: I48.91 Unspecified atrial fibrillation (principal) | CPT/HCPCS: 85610 ==

== ENCOUNTER 2018-06-10 14:13 | Outpatient (CLI) | payer MEDICARE | END 2018-06-10 14:14 | disposition home or self-care (01) | LOC: LAB.F 14:13 | PROVIDERS: ATTEND Internal Medicine | DX: I48.91 Unspecified atrial fibrillation (principal) | CPT/HCPCS: 85610 ==

== ENCOUNTER 2018-06-30 13:53 | Outpatient (CLI) | payer MEDICARE ==
[2018-06-30 17:49] LABS: INR 2.9 (0.8-1.2); PT - PROTHROMBIN TIME 31.9 secs (9.9-12.6)
== END 2018-06-30 13:54 | disposition home or self-care (01) ==
LOC: LAB.F 13:53
PROVIDERS: ATTEND Internal Medicine
DX: I48.91 Unspecified atrial fibrillation (principal)
CPT/HCPCS: 85610

== ENCOUNTER 2018-07-08 10:26 | Emergency (ER) | payer MEDICARE ==
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
[2018-07-08] MEDS ORDERED: ACETAMINOPHEN 325 MG TABLET PO STA (11:03)
[2018-07-08 11:29] LABS: INR 2.4 (0.8-1.2); PT - PROTHROMBIN TIME 26.4 secs (9.9-12.6)
--- NOTE | 2018-07-08 11:42 | CT Report ---
Procedure Date: 07/08/2018 Accession Number: [id number] / [id number] Procedure: CT - Head W/O CPT Code: FULL RESULT: EXAM: CT HEAD EXAM DATE: 07/08/2018 11:25 AM. CLINICAL HISTORY: Fell during night and struck head; on Coumadin. COMPARISON: 10/20/2009 TECHNIQUE: Multiaxial CT images were obtained from the foramen magnum to the vertex. Reformats: Sagittal and coronal. IV contrast: None. In accordance with CT protocol optimization, one or more of the following dose reduction techniques were utilized for this exam: automated exposure control, adjustment of mA and/or KV based on patient size, or use of iterative reconstructive technique. FINDINGS: Parenchyma: No intraparenchymal hemorrhage. No evidence of mass, midline shift, or CT findings of acute infarction. 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 Kelly-white differentiation is distinct. Diffuse chronic microangiopathic white matter changes are evident. Extraaxial Spaces: Normal for age. No subdural or epidural collections identified. Ventricles: The ventricles and cortical sulci are enlarged, consistent with age-related tissue loss. Sinuses and orbits: Imaged paranasal sinuses, orbits, and mastoids show no significant abnormality. Bones: No evidence of fracture or calvarial defect. Other: Soft tissue swelling left occipital region IMPRESSION: Generalized age-related chronic changes without evidence of acute intracranial abnormality. [facility]
[2018-07-08 12:17] VITALS: BP 133/66
== END 2018-07-08 12:17 | disposition home or self-care (01) ==
LOC: ED 10:26
DX: S00.03XA Contusion of scalp, initial encounter (principal); S50.11XA Contusion of right forearm, initial encounter; S90.01XA Contusion of right ankle, initial encounter; Z79.01 Long term (current) use of anticoagulants; W18.2XXA Fall in (into) shower or empty bathtub, initial encounter; Y92.002 Bathroom of unspecified non-institutional (private) residence as the place of occurrence of the external cause
CPT/HCPCS: 36415; 70450; 85610; 99283; 99284; A9270

== ENCOUNTER 2018-07-23 15:37 | Outpatient (CLI) | payer MEDICARE ==
[2018-07-23 15:53] LABS: BILIRUBIN,URINE NEGATIVE (NEGATIVE); GLUCOSE, URINE (UA) NEGATIVE (NEGATIVE); KETONES,URINE (UA) NEGATIVE (NEGATIVE); LEUKOCYTE ESTERASE, URINE LARGE (NEGATIVE); NITRITE,URINE NEGATIVE (NEGATIVE); OCCULT BLOOD,URINE SMALL (NEGATIVE); PROTEIN,URINE NEGATIVE (NEGATIVE); UROBILINOGEN,URINE 0.2 (NORMAL) E.U./dL (NORMAL)
[2018-07-23 16:02] LABS: BASOPHILS % (AUTO) 2.9 %; EOSINOPHILS % (AUTO) 1.9 %; HGB - HEMOGLOBIN 10.8 g/dL (12.0-16.0); LYMPHOCYTES % (AUTO) 13.6 %; MEAN CORPUSCULAR HEMOGLOBIN 30.5 pg (27.0-31.0); MEAN CORPUSCULAR HGB CONC 34.6 g/dL (32.0-36.0); MEAN CORPUSCULAR VOLUME 88.2 fL (81.0-99.0); MEAN PLATELET VOLUME 7.3 fL (7.9-10.8); MONOCYTES % (AUTO) 10.3 %; NEUTROPHILS % (AUTO) 71.3 %; PLT - PLATELET COUNT 159 10^3/uL (130-450); RED BLOOD COUNT 3.53 10^6/uL (4.20-5.40); RED CELL DISTRIBUTION WIDTH 21.7 % (12.0-15.0); WHITE BLOOD COUNT 19.3 x10^3/uL (4.8-10.8)
[2018-07-23 16:03] LABS: BACTERIA,URINE None Seen /HPF (None Seen); CLARITY,URINE CLOUDY (CLEAR); RBC,URINE 0-5 /HPF (0-5); SQUAMOUS EPITHELIAL CELL,UR NONE SEEN (<= Few)
[2018-07-23 16:04] LABS: ABNORMAL LYMPHS % (MANUAL) 0 %
[2018-07-23 16:05] LABS: ALBUMIN 4.8 g/dL (3.2-5.5); ALBUMIN/GLOBULIN RATIO 1.8 (1.0-2.2); CALCIUM 9.2 mg/dL (8.5-10.3); TOTAL PROTEIN 7.4 g/dL (6.7-8.2)
[2018-07-23 16:17] LABS: BAND NEUTROPHILS % (MANUAL) 8 %; BASOPHILS # (MANUAL) 0.4 10^3/uL (0-0.1); BASOPHILS % (MANUAL) 2 %; EOSINOPHILS # (MANUAL) 0.4 10^3/uL (0-0.7); LYMPHOCYTES # (MANUAL) 2.5 10^3/uL (1.5-3.5); LYMPHOCYTES % (MANUAL) 12 %; METAMYELOCYTES % (MANUAL) 5 %; MYELOCYTES % (MANUAL) 1 %; NEUTROPHILS # (MANUAL) 13.9 10^3/uL (1.5-6.6); NEUTROPHILS % (MANUAL) 64 %
[2018-07-23 16:19] LABS: DIFFERENTIAL COMMENT MANUAL DIFFERENTIAL; PLATELET ESTIMATE, MANUAL NORMAL (130-450,000) (NORMAL); PLATELET MORPHOLOGY 1+ GIANT PLATELETS (NORMAL)
== END 2018-07-23 15:38 | disposition home or self-care (01) ==
LOC: LAB 15:37
PROVIDERS: ATTEND Physician Assistant Medical
DX: R32 Unspecified urinary incontinence (principal); R53.1 Weakness
CPT/HCPCS: 36415; 80053; 81001; 85025; 85379; 87086

== ENCOUNTER 2018-07-23 15:46 | Outpatient (CLI) | payer MEDICARE ==
--- NOTE | 2018-07-23 16:30 | XRAY Report ---
Reason: DYSPNEA Procedure Date: 07/23/2018 Accession Number: [id number] / [id number] Procedure: XR - Chest 2 View X-Ray CPT Code: 65553 FULL RESULT: EXAM: CHEST RADIOGRAPHY EXAM DATE: 07/23/2018 04:06 PM. CLINICAL HISTORY: DYSPNEA. COMPARISON: 02/19/2018. TECHNIQUE: 2 views. FINDINGS: Lungs/Pleura: Right middle lobe airspace process has resolved. Lungs are clear. No pleural effusion or pneumothorax. Mediastinum: Heart and mediastinal contours are unremarkable. Dual-lead left subclavian transvenous pacemaker as before. Other: Negative bony structures. IMPRESSION: No acute findings two-view chest. Clear lungs. [facility]
== END 2018-07-23 15:47 | disposition home or self-care (01) ==
LOC: DI 15:46
PROVIDERS: ATTEND Physician Assistant Medical
DX: R06.00 Dyspnea, unspecified (principal); R32 Unspecified urinary incontinence; R53.1 Weakness
CPT/HCPCS: 36415; 71046; 80053; 81001; 85025; 85379; 87086

== ENCOUNTER 2018-08-07 13:29 | Outpatient (CLI) | payer MEDICARE | END 2018-08-07 13:30 | disposition home or self-care (01) | LOC: LAB.F 13:29 | PROVIDERS: ATTEND Internal Medicine | DX: I48.91 Unspecified atrial fibrillation (principal) | CPT/HCPCS: 85610 ==

== ENCOUNTER 2018-08-25 13:56 | Outpatient (CLI) | payer MEDICARE ==
[2018-08-25 18:17] LABS: PT - PROTHROMBIN TIME 42.4 secs (9.9-12.6)
== END 2018-08-25 13:57 | disposition home or self-care (01) ==
LOC: LAB.F 13:56
PROVIDERS: ATTEND Internal Medicine
DX: I48.91 Unspecified atrial fibrillation (principal)
CPT/HCPCS: 85610

== ENCOUNTER 2018-09-09 14:51 | Outpatient (CLI) | payer MEDICARE | END 2018-09-09 14:52 | disposition home or self-care (01) | LOC: LAB.F 14:51 | PROVIDERS: ATTEND Internal Medicine | DX: I48.91 Unspecified atrial fibrillation (principal) | CPT/HCPCS: 85610 ==

== ENCOUNTER 2018-09-23 14:28 | Outpatient (CLI) | payer MEDICARE | END 2018-09-23 14:29 | disposition home or self-care (01) | LOC: LAB.F 14:28 | PROVIDERS: ATTEND Internal Medicine | DX: I48.91 Unspecified atrial fibrillation (principal) | CPT/HCPCS: 85610 ==

== ENCOUNTER 2018-10-23 12:27 | Outpatient (CLI) | payer MEDICARE | END 2018-10-23 12:28 | disposition home or self-care (01) | LOC: LAB.F 12:27 | PROVIDERS: ATTEND Internal Medicine | DX: I48.91 Unspecified atrial fibrillation (principal) | CPT/HCPCS: 85610 ==

== ENCOUNTER 2018-10-31 18:40 | Outpatient (CLI) | payer MEDICARE ==
--- NOTE | 2018-11-01 19:55 | Ultrasound Report ---
Reason: ABDOMINAL PAIN, RIGHT UPPER QUADRANT Procedure Date: 10/31/2018 Accession Number: [id number] / [id number] Procedure: US - Abdomen Complete CPT Code: FULL RESULT: EXAM: ABDOMEN ULTRASOUND EXAM DATE: 10/31/2018 07:33 PM. CLINICAL HISTORY: ABDOMINAL PAIN, RIGHT UPPER QUADRANT. COMPARISON: None. TECHNIQUE: Real-time scanning was performed with static images obtained. FINDINGS: Liver: There are anechoic foci within the liver which probably represent cysts. cm. Main portal vein flow: Hepatopetal. Gallbladder: Normal. No stones, wall thickening, or sonographic Dahl's sign. Biliary System: Common bile duct measures 3 mm. No intrahepatic or extrahepatic ductal dilatation. Pancreas: Visualized portion is unremarkable. Kidneys: Right: 9.1 cm longitudinally. There is an anechoic exophytic cyst. No contour-deforming mass, stones, or hydronephrosis. Left: 11.5 cm longitudinally. Normal. No contour-deforming mass, stones, or hydronephrosis. Spleen: 16 cm. The spleen is enlarged. No focal splenic abnormalities are seen. Aorta and Inferior Vena Cava: Unremarkable. Other: None. IMPRESSION: 1. There is splenomegaly. 2. No suspicious hepatic abnormalities are seen. 3. Gallbladder demonstrates no stones or wall thickening. 4. There is no intra-or extrahepatic bile duct dilatation. 5. The kidneys demonstrate no hydronephrosis. [facility]
== END 2018-10-31 18:41 | disposition home or self-care (01) ==
LOC: DI 18:40
PROVIDERS: ATTEND Internal Medicine
DX: R16.1 Splenomegaly, not elsewhere classified (principal); R22.1 Localized swelling, mass and lump, neck; R10.11 Right upper quadrant pain
CPT/HCPCS: 76700

== ENCOUNTER 2018-11-02 11:50 | Outpatient (CLI) | payer MEDICARE ==
--- NOTE | 2018-11-03 09:23 | Ultrasound Report ---
Reason: NECK MASS Procedure Date: 11/02/2018 Accession Number: [id number] / [id number] Procedure: US - Head or Neck Soft Tissue CPT Code: FULL RESULT: EXAM: THYROID ULTRASOUND EXAM DATE: 11/02/2018 12:52 PM. CLINICAL HISTORY: Neck mass. COMPARISON: None. TECHNIQUE: Real time sonographic imaging of the palpable left submandibular mass was performed by the decaler. Multiple enrollment eligibility representative static images were saved for review. FINDINGS: Left submandibular region: In the region of palpable concern, there is an oval 1.4 x 1 x 0.8 cm heterogeneous hypoechoic mass with flow corresponding to the palpable area of concern. Morphology suggests possible lymph node but it is not specific. Per patient history, mass has been present for a year, has increased in tenderness and hardness in the interval but decreased in size. LYMPH NODES: No adenopathy demonstrated in the areas imaged. OTHER: None. IMPRESSION: A 1.4 cm hypervascular soft tissue mass corresponding to a palpable mass left submandibular area as described, increasing in tenderness and hardness per patient. Given clinical change and appearance, consider fine-needle aspiration under ultrasound guidance for definitive diagnosis. [facility]
== END 2018-11-02 11:51 | disposition home or self-care (01) ==
LOC: DI 11:50
PROVIDERS: ATTEND Internal Medicine
DX: R22.1 Localized swelling, mass and lump, neck (principal); R10.11 Right upper quadrant pain
CPT/HCPCS: 76536

== ENCOUNTER 2018-11-26 13:50 | Outpatient (CLI) | payer MEDICARE | END 2018-11-26 13:51 | disposition home or self-care (01) | LOC: LAB.F 13:50 | PROVIDERS: ATTEND Internal Medicine | DX: I48.91 Unspecified atrial fibrillation (principal) | CPT/HCPCS: 85610 ==

== ENCOUNTER 2018-12-09 14:38 | Outpatient (CLI) | payer MEDICARE ==
[2018-12-09 18:35] LABS: THYROID STIMULATING HORMONE 0.97 uIU/mL (0.34-5.60)
== END 2018-12-09 14:39 | disposition home or self-care (01) ==
LOC: LAB.F 14:38
PROVIDERS: ATTEND Internal Medicine
DX: G62.9 Polyneuropathy, unspecified (principal)
CPT/HCPCS: 36415; 81599; 82607; 84443

== ENCOUNTER 2019-01-01 11:22 | Outpatient (CLI) | payer MEDICARE | END 2019-01-01 11:23 | disposition home or self-care (01) | LOC: LAB.F 11:22 | PROVIDERS: ATTEND Internal Medicine | DX: I48.91 Unspecified atrial fibrillation (principal) | CPT/HCPCS: 85610 ==

== ENCOUNTER 2019-01-21 10:01 | Outpatient (CLI) | payer MEDICARE ==
[~2019-01-21 10:01] MED LIST changes: +BUFFERED LIDOCAINE 10 ML SYRINGE ONE; -IOPAMIDOL-300 100 ML VIAL ONE; -IOPAMIDOL-300 50 ML VIAL ONE
--- NOTE | 2019-01-23 15:54 | Ultrasound Report ---
Reason: LOCALIZED SWELLING, MASS AND LUMP, NECK Procedure Date: 01/21/2019 Accession Number: [id number] / [id number] Procedure: US - Head or Neck Soft Tissue CPT Code: FULL RESULT: EXAM: NECK ULTRASOUND EXAM DATE: 01/21/2019 10:43 AM. CLINICAL HISTORY: Localized swelling, mass and lump, neck. COMPARISON: HEAD OR NECK SOFT TISSUE 11/02/2018 12:25 PM. TECHNIQUE: Real-time sonographic imaging was performed by the supervisor front utilizing color-flow. Multiple call center representative static images were saved for review. FINDINGS: The previously identified left submandibular mass persists, heterogeneous and hypoechoic with vascularity on color Doppler and somewhat irregular margins measuring 1.7 x 1.0 x 1.8 cm (previously 1.4 x 1.0 x 0.8 cm). IMPRESSION: Interval enlargement of hypoechoic vascular mass. [facility]
== END 2019-01-21 10:02 | disposition home or self-care (01) ==
LOC: DI 10:01
PROVIDERS: ATTEND Surgery
DX: R22.1 Localized swelling, mass and lump, neck (principal); Z85.828 Personal history of other malignant neoplasm of skin
CPT/HCPCS: 76536

== ENCOUNTER 2019-01-30 12:06 | Outpatient (CLI) | payer MEDICARE ==
--- NOTE | 2019-01-30 14:02 | Ultrasound Report ---
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 COMPARISON: HEAD OR NECK SOFT TISSUE 11/02/2018 12:25 PM. TECHNIQUE: The risks, benefits, and alternatives of the procedure were discussed with the patient. All questions were answered. Written and verbal consent were obtained. A site was marked over the left submandibular mass in question under live sonographic evaluation, then subsequently prepped and draped in a sterile manner. Local anesthesia was performed with 1% lidocaine. 4, 22 gauge fine-needle aspirates/passes were performed through the left submandibular mass in question, then passed to the scenic designer for preparation. Estimated blood loss was less than 1 mL. Sonographic images demonstrate needle placement within left submandibular mass in question with each pass. FINDINGS IMPRESSION: Successful FNA of left submandibular mass. [facility]
[2019-01-30] MEDS ORDERED: BUFFERED LIDOCAINE 10 ML SYRINGE IU ONE (16:52)
== END 2019-01-30 12:07 | disposition home or self-care (01) ==
LOC: DI 12:06
PROVIDERS: ATTEND Surgery
DX: R22.1 Localized swelling, mass and lump, neck (principal); Z85.828 Personal history of other malignant neoplasm of skin
CPT/HCPCS: 10005

== ENCOUNTER 2019-02-02 14:31 | Outpatient (CLI) | payer MEDICARE | END 2019-02-02 14:32 | disposition home or self-care (01) | LOC: LAB.F 14:31 | PROVIDERS: ATTEND Internal Medicine | DX: I48.91 Unspecified atrial fibrillation (principal); Z79.01 Long term (current) use of anticoagulants | CPT/HCPCS: 85610 ==

== ENCOUNTER 2019-02-09 13:20 | Outpatient (CLI) | payer MEDICARE | END 2019-02-09 13:21 | disposition home or self-care (01) | LOC: LAB.F 13:20 | PROVIDERS: ATTEND Internal Medicine | DX: Z79.01 Long term (current) use of anticoagulants (principal); I48.91 Unspecified atrial fibrillation | CPT/HCPCS: 85610 ==

== ENCOUNTER 2019-02-19 13:26 | Outpatient (CLI) | payer MEDICARE | END 2019-02-19 13:27 | disposition home or self-care (01) | LOC: LAB.F 13:26 | PROVIDERS: ATTEND Internal Medicine | DX: I48.91 Unspecified atrial fibrillation (principal); Z79.01 Long term (current) use of anticoagulants | CPT/HCPCS: 85610 ==

== ENCOUNTER 2019-03-03 14:19 | Outpatient (CLI) | payer MEDICARE | END 2019-03-03 14:20 | disposition home or self-care (01) | LOC: LAB.F 14:19 | PROVIDERS: ATTEND Internal Medicine | DX: I48.91 Unspecified atrial fibrillation (principal); Z79.01 Long term (current) use of anticoagulants | CPT/HCPCS: 85610 ==

== ENCOUNTER 2019-03-09 14:15 | Outpatient (CLI) | payer MEDICARE | END 2019-03-09 14:16 | disposition home or self-care (01) | LOC: LAB.F 14:15 | PROVIDERS: ATTEND Internal Medicine | DX: I48.91 Unspecified atrial fibrillation (principal); Z79.01 Long term (current) use of anticoagulants | CPT/HCPCS: 85610 ==

== ENCOUNTER 2019-03-17 14:39 | Outpatient (CLI) | payer MEDICARE | END 2019-03-17 14:40 | disposition home or self-care (01) | LOC: LAB.F 14:39 | PROVIDERS: ATTEND Internal Medicine | DX: I48.91 Unspecified atrial fibrillation (principal); Z79.01 Long term (current) use of anticoagulants | CPT/HCPCS: 85610 ==

== ENCOUNTER 2019-04-06 13:54 | Outpatient (CLI) | payer MEDICARE ==
[2019-04-06 18:59] LABS: PARTIAL THROMBOPLASTIN TIME 29.7 secs (24.9-33.3)
[2019-04-06 19:08] LABS: INR 1.2 (0.8-1.2); PT - PROTHROMBIN TIME 13.7 secs (9.9-12.6)
== END 2019-04-06 13:55 | disposition home or self-care (01) ==
LOC: LAB.F 13:54
PROVIDERS: ATTEND Otolaryngology
DX: Z01.818 Encounter for other preprocedural examination (principal)
CPT/HCPCS: 36415; 85610; 85730

== ENCOUNTER 2019-05-04 13:48 | Outpatient (CLI) | payer MEDICARE | END 2019-05-04 13:49 | disposition home or self-care (01) | LOC: LAB.F 13:48 | PROVIDERS: ATTEND Internal Medicine | DX: Z79.01 Long term (current) use of anticoagulants (principal); I48.91 Unspecified atrial fibrillation | CPT/HCPCS: 85610 ==

== ENCOUNTER 2019-05-11 14:42 | Outpatient (CLI) | payer MEDICARE | END 2019-05-11 14:43 | disposition home or self-care (01) | LOC: LAB.F 14:42 | PROVIDERS: ATTEND Internal Medicine | DX: Z79.01 Long term (current) use of anticoagulants (principal); I48.91 Unspecified atrial fibrillation | CPT/HCPCS: 85610 ==

== ENCOUNTER 2019-06-04 14:35 | Outpatient (CLI) | payer MEDICARE | END 2019-06-04 14:36 | disposition home or self-care (01) | LOC: LAB 14:35 | PROVIDERS: ATTEND Internal Medicine | DX: Z79.01 Long term (current) use of anticoagulants (principal); I48.91 Unspecified atrial fibrillation | CPT/HCPCS: 85610 ==

== ENCOUNTER 2019-06-26 11:01 | Outpatient (CLI) | payer MEDICARE | END 2019-06-26 11:02 | disposition home or self-care (01) | LOC: LAB.S 11:01 | PROVIDERS: ATTEND Internal Medicine | DX: I48.91 Unspecified atrial fibrillation (principal); Z79.01 Long term (current) use of anticoagulants | CPT/HCPCS: 85610 ==

== ENCOUNTER 2019-07-14 14:27 | Outpatient (CLI) | payer MEDICARE | END 2019-07-14 14:28 | disposition home or self-care (01) | LOC: LAB.S 14:27 | PROVIDERS: ATTEND Family Medicine | DX: Z79.01 Long term (current) use of anticoagulants (principal); I48.91 Unspecified atrial fibrillation | CPT/HCPCS: 85610 ==

== ENCOUNTER 2019-08-12 14:24 | Outpatient (CLI) | payer MEDICARE | END 2019-08-12 14:25 | disposition home or self-care (01) | LOC: LAB.S 14:24 | PROVIDERS: ATTEND Family Medicine | DX: I48.91 Unspecified atrial fibrillation (principal); Z79.01 Long term (current) use of anticoagulants | CPT/HCPCS: 85610 ==

== ENCOUNTER 2019-09-01 11:32 | Outpatient (CLI) | payer MEDICARE ==
--- NOTE | 2019-09-01 12:46 | XRAY Report ---
Reason: MUSCLE SPASM.LUMBAR REGION Procedure Date: 09/01/2019 Accession Number: [id number] / [id number] Procedure: XR - Lumbar Spine 2 View CPT Code: FULL RESULT: EXAM: LUMBOSACRAL SPINE RADIOGRAPHY EXAM DATE: 09/01/2019 11:49 AM. CLINICAL HISTORY: Muscle spasm. Lumbar region. COMPARISONS: LUMBAR SPINE 2 VIEW 05/08/2017 3:00 PM. TECHNIQUE: 2 views. FINDINGS: Alignment: Normal. No spondylolisthesis or scoliosis. Bones: Five [id number] lumbar vertebral bodies are present. No fractures or bone lesions. Disks: There is loss of disk space height at L4-L5 and L2-L3. Facets: Mild to moderate facet arthropathy is seen at L5. Sacroiliac Joints: Left SI joint appears unremarkable, right SI joint is not well seen. Soft Tissues: Aortic calcifications are noted. Additionally, a calcification within the soft tissues ventral to the stomach is noted on lateral view, uncertain significance. Calcifications over the pelvis have an appearance that may represent fibroids. IMPRESSION: Degenerative changes. [facility]
== END 2019-09-01 11:33 | disposition home or self-care (01) ==
LOC: DI 11:32
PROVIDERS: ATTEND Family Medicine
DX: M51.36 Other intervertebral disc degeneration, lumbar region (principal); M47.816 Spondylosis without myelopathy or radiculopathy, lumbar region
CPT/HCPCS: 72100

== ENCOUNTER 2019-09-29 09:36 | Outpatient (CLI) | payer MEDICARE ==
[2019-09-29] MEDS ORDERED: IOVERSOL 320 100 ML VIAL IVP ONE ×2 (10:02→15:26)
--- NOTE | 2019-09-29 11:42 | CT Report ---
Reason: MYELOPROLIFERATIVE DISEASE, NEOPLASM MYELOFIBROSIS Procedure Date: 09/29/2019 Accession Number: [id number] / [id number] Procedure: CT - SOFT TISSUE NECK W CPT Code: Final Report FULL RESULT: CT SOFT TISSUE NECK WITH CONTRAST INDICATION: 84-year-old female. Myeloproliferative disease. Neoplasm myelofibrosis. TECHNIQUE: 80 cc of Optiray 320 contrast were injected intravenously. The neck was scanned helically and the data was reconstructed into 2 mm axial images. In addition, sagittal and coronal reformations have been generated. In accordance with CT protocol optimization, one or more of the following dose reduction techniques were utilized for this exam: automated exposure control, adjustment of mA and/or KV based on patient size, or use of iterative reconstructive technique. COMPARISON: None. FINDINGS: The nasopharyngeal soft tissues are symmetric. The oropharyngeal soft tissues appear symmetric. The oral tongue is partially obscured due to beam hardening artifact from metal dental hardware. No obvious mass lesion is demonstrated. The lingual tonsil appears thicker on the left than the right (see images 64 of series #3). For example, on image 54 of series #6 (left paracentral) enhancement of the lingual tonsil measures about 4 mm, compared to roughly 3 mm on image 58 of series #6 (right paracentral). The tongue base is otherwise unremarkable. The larynx and hypopharynx are unremarkable. The imaged upper trachea appears widely patent. There is a diffusely heterogeneous density, masslike lesion arising in an exophytic fashion from lower pole of right lobe of thyroid that extends caudad into the upper mediastinum between the innominate artery and proximal left common carotid artery. It measures up to about 2.75 cm maximal AP by about 2.45 cm maximal transverse and it appears to measure about 3.7 cm craniocaudad. There are multiple coarse calcifications within this lesion. There is a smaller, heterogeneous density, partially calcified exophytic mass arising from the lower pole of the left lobe of the thyroid. It measures about 1.9 x 1.75 by roughly 2.15 cm. There is no significant retrosternal extension. No regional lymphadenopathy is identified. The submandibular glands are relatively small but are otherwise unremarkable. No parotid mass is demonstrated. A roughly 2.45 cm maximal AP by 1.9 cm maximal transverse and roughly 1.8 cm maximal craniocaudad mass is identified in the midline, submental region. It demonstrates peripheral hyperdensity (? enhancement) with irregular, central area of low density that probably represents necrosis. The inferior, anterior and lateral margins are relatively well defined; however, the superior and posterior margins are poorly defined. The absence of soft tissue plane the lesion from the anterior bellies of the digastric muscles and the mylohyoid suggests possible invasion of these muscles. This lesion lies just deep to the skin surface and would be amenable to biopsy. This certainly could represent necrotic, metastatic submental chain lymphadenopathy. No other potential metastatic lymphadenopathy is demonstrated within the neck. In particular, no additional lymph nodes meeting the size criterion for malignancy are demonstrated and no other necrotic lymph nodes are demonstrated. There is scarring at the pulmonary apices bilaterally. Emphysematous changes are demonstrated in both lungs. No discrete mass/nodule is seen in the imaged upper lungs. Noted is a permanent cardiac pacemaker or automatic defibrillator device with electrodes entering from a left subclavian approach. There is diffuse sclerosis of imaged bony structures, consistent with history of myelofibrosis. In addition, numerous small, rounded lucencies are seen, scattered throughout multiple vertebrae, largest in the C4 and C5 vertebrae (see image 58 of series #6) of uncertain etiology and significance. Most appear well-defined with narrow zone of transition suggesting a may represent a benign change. The middle ear cavities and imaged mastoid air cells appear clear. The paranasal sinuses appear clear. No mass is demonstrated in either orbit. An ill-defined area of hypodensity is demonstrated in the posterior right parietal lobe that involves both white matter and overlying cortex. Assessment is limited in field of view provided. 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 No obvious acute pathology is identified in the imaged brain. Noted is asymmetric prominence of the right cavernous sinus (see image 23 of series #3). The possibility of cavernous ICA aneurysm or enhancing mass lesion cannot be excluded. IMPRESSION: 1. A roughly 2.45 x 1.9 x 1.8 cm mass is identified in the midline, submental region demonstrating central hypodensity, concerning for necrosis. There may be invasion of the adjacent digastric muscles and/or mylohyoid. This most likely represents a necrotic, metastatic lymph node. Consider further evaluation with biopsy and/or resection. 2. No other potential metastatic lymphadenopathy is identified in the neck. 3. Exophytic masses are identified arising from the lower poles of the right and left lobes of the thyroid. The right lobe lesion is much larger. The possibility of malignancy cannot be excluded. Consider further evaluation with ultrasound and/or biopsy. 4. There is diffuse sclerosis of regional skeletal structures, consistent with the history of myelofibrosis. Also demonstrated are numerous, small, round and ovoid lucent lesions scattered throughout the bony structures. The etiology is uncertain. Differential diagnostic considerations would include multiple myeloma and metastases. 5. Incidentally noted is asymmetric fullness of the right cavernous sinus. The possibility of cavernous carotid artery aneurysm or enhancing mass lesion cannot be excluded. The patient has a permanent pacemaker or automatic defibrillator device suggesting that she can probably not undergo evaluation with MRI. Therefore, consider further assessment with CT angiogram of the head.
== END 2019-09-29 09:37 | disposition home or self-care (01) ==
LOC: DI 09:36
PROVIDERS: ATTEND Internal Medicine Hematology & Oncology
DX: D47.1 Chronic myeloproliferative disease (principal); C77.0 Secondary and unspecified malignant neoplasm of lymph nodes of head, face and neck; E07.9 Disorder of thyroid, unspecified; Z95.0 Presence of cardiac pacemaker
CPT/HCPCS: 70491; Q9967

== ENCOUNTER 2019-10-02 13:52 | Outpatient (CLI) | payer MEDICARE | END 2019-10-02 13:53 | disposition home or self-care (01) | LOC: LAB.S 13:52 | PROVIDERS: ATTEND Family Medicine | DX: Z79.01 Long term (current) use of anticoagulants (principal); I48.91 Unspecified atrial fibrillation | CPT/HCPCS: 85610 ==

== ENCOUNTER 2020-01-15 08:00 | Outpatient (CLI) | payer MEDICARE | END 2020-01-15 23:59 | disposition home or self-care (01) | LOC: LAB.R 08:00 | PROVIDERS: ATTEND Nurse Practitioner | DX: R32 Unspecified urinary incontinence (principal) | CPT/HCPCS: 87086; 87181 ==

== ENCOUNTER 2020-02-02 10:44 | Outpatient (CLI) | payer MEDICARE | END 2020-02-02 10:45 | disposition home or self-care (01) | LOC: LAB.S 10:44 | PROVIDERS: ATTEND Family Medicine | DX: I48.91 Unspecified atrial fibrillation (principal); Z79.01 Long term (current) use of anticoagulants | CPT/HCPCS: 85610 ==

== ENCOUNTER 2020-02-22 10:22 | Outpatient (CLI) | payer MEDICARE ==
[2020-02-22] MEDS ORDERED: IOVERSOL 320 100 ML VIAL IVP ONE ×2 (10:28→11:10)
--- NOTE | 2020-02-22 12:56 | CT Report ---
Reason: MALIG NEOPLASM OF LYMPHNODES Procedure Date: 02/22/2020 Accession Number: [id number] / [id number] Procedure: CT - SOFT TISSUE NECK W CPT Code: Final Report FULL RESULT: CT SOFT TISSUE NECK WITH CONTRAST INDICATION: 84-year-old female. Malignant neoplasm of lymph nodes. TECHNIQUE: 80 mL of Optiray 320 contrast were injected intravenously. The neck was scanned helically and the data was reconstructed into 2 mm axial images. In addition, sagittal and coronal reformations have been generated. In accordance with CT protocol optimization, one or more of the following dose reduction techniques were utilized for this exam: automated exposure control, adjustment of mA and/or KV based on patient size, or use of iterative reconstructive technique. COMPARISON: 09/29/2019. FINDINGS: The nasopharyngeal and oropharyngeal soft tissue contours remain symmetric. Again demonstrated is asymmetric prominence of the lingual tonsil on the left, unchanged. The larynx and hypopharynx are unremarkable. The imaged trachea is widely patent. Again demonstrated is a partially calcified, exophytic thyroid mass arising from the lower pole of the right lobe of the thyroid and extending caudad, into the upper mediastinum on the right. This mass measures about 2.6 cm maximal AP by about 2.4 cm maximal transverse and about 3.65 cm maximal craniocaudad, essentially unchanged. Also again demonstrated is a smaller, partially calcified exophytic mass arising from the lower pole of the left lobe of the thyroid, also essentially unchanged. The submandibular glands are small but otherwise are unremarkable. The parotid glands are unremarkable. Atherosclerotic plaque is identified at the carotid bifurcations without associated hemodynamically significant carotid artery stenosis. The vertebral arteries appear patent. Both internal jugular veins appear patent. Again demonstrated is a lesion in the midline submental space that demonstrates central hypodensity with peripheral rim of hyperdensity, presumably representing enhancement. This lesion has a multilobulated contour. On today's examination it appears to measure up to about 2.6 cm maximal AP (image 56 of series #6) by about 1.9 cm maximal transverse and about 2 cm maximal craniocaudad. This is increased from about 2.1 x 1.6 x 2 cm on the previous examination. There is fairly extensive stranding in the surrounding subcutaneous fat that is new. This presumably represents an enlarged, necrotic lymph node. No other potential malignant lymphadenopathy is demonstrated within the neck. In particular, no additional lymph nodes meeting the size criterion for malignancy are demonstrated and no additional necrotic lymph nodes are seen. No focal mass/nodule is identified in the imaged upper lungs. Minor scarring again noted at the pulmonary apices. Again demonstrated are findings related to a cardiac pacemaker or automatic defibrillator device. Again demonstrated is diffuse sclerosis of the bones in the imaged vertebral column. In addition, numerous small lucencies are again seen scattered throughout multiple vertebrae. The largest lucencies are again demonstrated in the C4 and C5 vertebral bodies, essentially unchanged. The middle ear cavities and the mastoid air cells appear well aerated and clear. The paranasal sinuses are well aerated and clear. No mass is identified in either orbit. No obvious acute pathology seen in the imaged brain. An ill-defined area of hypodensity again noted in the right parietal lobe, presumably representing the sequela of remote ischemic injury. Again noted is asymmetric fullness of the right cavernous sinus, of uncertain etiology, essentially unchanged. IMPRESSION: 1. Again demonstrated is a necrotic pathologically enlarged lymph node or conglomerate of lymph nodes in the submental region as described. There has been interval increase in the size of this presumed necrotic lymph node when compared to previous study 09/29/2019. 2. There is extensive stranding in the subcutaneous fat in the submental and submandibular regions, surrounding the necrotic lymph node that has developed since the study of 09/29/2019. The etiology is uncertain. This could represent posttreatment change if there has been interval radiation therapy. Differential diagnostic considerations would include infection (cellulitis). Clinical correlation is advised. 3. Essentially stable appearance of previously demonstrated partially calcified, exophytic masses arising from the lower poles of both lobes of the thyroid gland. 4. Again demonstrated is mild asymmetric fullness of the lingual tonsil on the left, unchanged. 5. No other potential head and neck primary malignancy is demonstrated.
== END 2020-02-22 10:23 | disposition home or self-care (01) ==
LOC: DI 10:22
PROVIDERS: ATTEND Radiology Radiation Oncology
DX: C77.0 Secondary and unspecified malignant neoplasm of lymph nodes of head, face and neck (principal); R93.0 Abnormal findings on diagnostic imaging of skull and head, not elsewhere classified; E07.9 Disorder of thyroid, unspecified
CPT/HCPCS: 70491; Q9967

== ENCOUNTER 2020-03-01 12:56 | Outpatient (CLI) | payer MEDICARE | END 2020-03-01 12:57 | disposition home or self-care (01) | LOC: LAB 12:56 | PROVIDERS: ATTEND Family Medicine | DX: N39.0 Urinary tract infection, site not specified (principal) | CPT/HCPCS: 87086 ==

== ENCOUNTER 2020-03-20 10:11 | Observation (INO) | payer MEDICARE ==
--- NOTE | 2020-03-20 10:58 | ED Physician Documentation ---
History of Present Illness - Stated complaint Stated Complaint: R ARM PX - Chief complaint Chief Complaint: Ext Problem - History obtained from History obtained from: Patient, Family - Additonal information Additional information: Patient comes emergency department complaining of bruising over her right hand and forearm and a new, painful "lump" on her medial forearm. Patient is on Coumadin and has not had any recent dose changes. She last had an INR 2 weeks ago which was therapeutic. The patient and states the patient has not been doing anything unusual in the last few days. She states that she does not have any trauma to the area. She states she mostly sits on the couch throughout the day. The patient has not been doing any housework or anything else that she can think of that might of caused the bruising. The patient states that she has not noticed any unusual bruising anywhere else. She was treated for UTI last month and has not had symptoms since, but did notice today a couple of drops of bright red blood on her underwear. She denies any pain or raw feeling in her genital area. No trauma. She states that when she wiped after urinating this morning, she did not notice any blood on the toilet paper or in the toilet bowl. The patient states that this was after she woke up and found the 2 drops of blood in her underwear. Patient states that she has not been having any other bleeding from her vagina or genital area, prior or since. 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 This ended in November. The patient states that she has been for the last several months developing a hard, enlarged mass in the submental area and that her oncologist initially did not think that it was malignant. She has found it somewhat difficult to swallow with this mass, and so she has not been eating as much as usual. She also just has not generally felt well for the months that she has had this. However, she states none of this is new. The patient has not had any fevers or chills. No redness in her arm. No nausea or vomiting. No new changes to appetite. No other complaints at this time. Review of Systems Ten Systems: 10 systems reviewed and negative Constitutional: reports: Reviewed and negative Eyes: reports: Reviewed and negative Ears: reports: Reviewed and negative Nose: reports: Reviewed and negative Throat: reports: Reviewed and negative Cardiac: reports: Reviewed and negative Respiratory: reports: Reviewed and negative GI: reports: Reviewed and negative : denies: Hematuria, Vaginal bleeding Skin: reports: Other (Contusion) Musculoskeletal: reports: Other (Soft tissue swelling right arm) Neurologic: reports: Reviewed and negative Psychiatric: reports: Reviewed and negative Endocrine: reports: Reviewed and negative Immunocompromised: reports: Reviewed and negative PD PAST MEDICAL HISTORY - Past Medical History Past Medical History: Yes Cardiovascular: Atrial fibrillation Respiratory: None Neuro: None Endocrine/Autoimmune: None GI: GERD : None HEENT: None Psych: None Musculoskeletal: None - Past Surgical History Past Surgical History: Yes Cardiovascular: Pacemaker Derm: Skin cancer surgery - Present Medications Home Medications: Ambulatory Orders Medication Instructions Recorded Confirmed Digoxin 125 mcg PO DAILY 04/02/13 03/20/20 Warfarin [Coumadin] 10 mg PO DAILY 06/30/13 03/20/20 Ruxolitinib Phosphate [Jakafi] 10 mg PO BID 02/19/17 03/20/20 Diltiazem HCl [Diltiazem 24Hr ER] 240 mg PO DAILY 03/20/20 03/20/20 - Allergies Allergies/Adverse Reactions: Allergies Allergy/AdvReac Type Severity Reaction Status Date / Time clopidogrel bisulfate * Allergy Unknown unknown Verified 02/09/20 13:12 [From Plavix] - Social History Does the pt smoke?: No Smoking Status: Never smoker Does the pt drink ETOH?: No Does the pt have substance abuse?: No - Immunizations Immunizations are current?: Yes Immunizations: TDAP >10years/unknown - POLST Patient has POLST: No PD ED PE NORMAL - Vitals Vital signs reviewed: Yes - General General: Alert and oriented X 3, No acute distress - HEENT HEENT: Atraumatic, PERRL, EOMI, Moist mucous membranes - Neck Neck: Supple, no meningeal sign - Cardiac Cardiac: RRR, No murmur, Strong equal pulses - Respiratory Respiratory: No respiratory distress, Clear bilaterally - Abdomen Abdomen: Soft, Non tender, Non distended - Derm Derm: Warm and dry, Other (Older appearing contusion noted over the dorsum of the patient's right hand, as well as on the ulnar aspect of the mid right forearm. No erythema or streaking.) - Extremities Extremities: No deformity, Other (Slight edema of the dorsum of the patient's right hand. Slight soft tissue fullness of the radial aspect of the patient's mid right forearm musculature. Tenderness noted over the area. No skin discoloration or fluctuance in the area. No cords.) - Neuro Neuro: Alert and oriented X 3 - Psych Psych: Normal mood, Normal affect Results - Vitals Vitals: Vital Signs - 24 hr 03/20/20 03/20/20 03/20/20 10:22 11:28 13:47 Temperature 36.4 C L Heart Rate 62 70 69 Respiratory 16 12 16 Rate Blood Pressure 153/102 H 148/77 H 139/77 H O2 Saturation 100 95 98 03/20/20 15:00 Temperature Heart Rate 71 Respiratory 15 Rate Blood Pressure 151/82 H O2 Saturation 96 Oxygen O2 Source Room air - Labs Labs: Laboratory Tests 03/20/20 03/20/20 03/20/20 10:44 10:44 12:28 WBC 22.1 H RBC 3.87 L Hgb 11.7 L Hct 34.3 L MCV 88.6 MCH 30.2 MCHC 34.1 RDW 20.3 H Plt Count 180 MPV 10.0 Neut # (Auto) Not Reportable Lymph # (Auto) Not Reportable Addison # (Auto) Not Reportable Eos # (Auto) Not Reportable Baso # (Auto) Not Reportable Absolute Nucleated RBC Not Reportable Total Counted 100 Band Neuts % (Manual) 15 H Abnorm Lymph % (Manual) 0 Metamyelocytes % 4 H Myelocytes % 5 H Blast Cells % 2 H* Nucleated RBC % Not Reportable Neutrophils # (Manual) 12.4 H Lymphocytes # (Manual) 3.3 Monocytes # (Manual) 3.3 H Eosinophils # (Manual) 0.2 Basophils # (Manual) 0.4 H Nucleated RBCs 8 Differential Comment MANUAL DIFFERENTIAL WBC Morphology NORMAL APPEARANCE Platelet Estimate NORMAL (130-450,000) Platelet Morphology NORMAL APPEARANCE RBC Morph Micro Appear 1+ ANISOCYTOSIS PT INR Whole Blood INR APTT Sodium 137 Potassium 3.9 Chloride 101 Carbon Dioxide 24 Anion Gap 12.0 BUN 20 Creatinine 1.0 Estimated GFR (MDRD) 53 L Glucose 89 Calcium 9.5 Total Bilirubin 1.0 AST 29 ALT 18 Alkaline Phosphatase 64 Total Protein 7.5 Albumin 4.6 Globulin 2.9 Albumin/Globulin Ratio 1.6 Lipase 35 Urine Color YELLOW Urine Clarity HAZY Urine pH 6.0 Ur Specific [place] 1.010 Urine Protein NEGATIVE Urine Glucose (UA) NEGATIVE Urine Ketones NEGATIVE Urine Occult Blood TRACE-INTA Urine Nitrite NEGATIVE Urine Bilirubin NEGATIVE Urine Urobilinogen 0.2 (NORMAL) Ur Leukocyte Esterase TRACE H Urine RBC 0-5 Urine WBC >25 H Urine WBC Clumps PRESENT Ur Epithelial Cells FEW Transitional Ur Squamous Epith Cells FEW Squamous Urine Bacteria Few Urine Casts 0-2 Hyaline Casts Ur Microscopic Review INDICATED Urine Culture Comments INDICATED 03/20/20 03/20/20 03/20/20 12:33 12:33 14:22 WBC RBC Hgb Hct MCV MCH MCHC RDW Plt Count MPV Neut # (Auto) Lymph # (Auto) Addison # (Auto) Eos # (Auto) Baso # (Auto) Absolute Nucleated RBC Total Counted Band Neuts % (Manual) Abnorm Lymph % (Manual) Metamyelocytes % Myelocytes % Blast Cells % Nucleated RBC % Neutrophils # (Manual) Lymphocytes # (Manual) Monocytes # (Manual) Eosinophils # (Manual) Basophils # (Manual) Nucleated RBCs Differential Comment WBC Morphology Platelet Estimate Platelet Morphology RBC Morph Micro Appear PT TNP INR TNP Whole Blood INR > 8.0 H* APTT 121.0 H* Sodium Potassium Chloride Carbon Dioxide Anion Gap BUN Creatinine Estimated GFR (MDRD) Glucose Calcium Total Bilirubin AST ALT Alkaline Phosphatase Total Protein Albumin Globulin Albumin/Globulin Ratio Lipase Urine Color Urine Clarity Urine pH Ur Specific [place] Urine Protein Urine Glucose (UA) Urine Ketones Urine Occult Blood Urine Nitrite Urine Bilirubin Urine Urobilinogen Ur Leukocyte Esterase Urine RBC Urine WBC Urine WBC Clumps Ur Epithelial Cells Ur Squamous Epith Cells Urine Bacteria Urine Casts Ur Microscopic Review Urine Culture Comments - Rads (name of study) US RUE Radiology: Final report received, See rad report PD MEDICAL DECISION MAKING - ED course Complexity details: reviewed results, re-evaluated patient, considered differential, d/w patient ED course: Patient was worked up with CBC and INR, as well as an ultrasound of the right upper extremity and a urinalysis. Ultrasound and urinalysis were unremarkable, and CBC showed mild anemia. INR was not able to be processed, so was redrawn. However, in the results were once again unable to be processed. It was suspected by lab that the patient's INR was very high. Such a whole blood INR was performed and found to be greater than 8. The patient's did then note that the patient had just gotten a new Coumadin prescription about a week a go and had been taking the Coumadin twice a day instead of once. I spoke with Dr. Barnard, who agreed to admit the patient to his service for observation. The patient will receive vitamin K and serial draws. Patient is not currently actively be bleeding. Urinalysis does not show any blood in the urine and there is no other evidence of bleeding anywhere else. Once again, the patient's contusions do appear old. Plan has been discussed with patient and who are agreeable. Departure - Departure Disposition: [address] [facility] DC/Xfer Clinical Impression: Coumadin toxicity Qualifiers: Encounter type: initial encounter Injury intent: accidental or unintentional Qualified Code(s): T45.511A - Poisoning by anticoagulants, accidental (unintentional), initial encounter Condition: Serious
[2020-03-20 10:59] LABS: BASOPHILS % (AUTO) 2.1 %; EOSINOPHILS % (AUTO) 1.5 %; HGB - HEMOGLOBIN 11.7 g/dL (12.0-16.0); LYMPHOCYTES % (AUTO) 8.7 %; MEAN CORPUSCULAR HEMOGLOBIN 30.2 pg (27.0-31.0); MEAN CORPUSCULAR HGB CONC 34.1 g/dL (32.0-36.0); MEAN CORPUSCULAR VOLUME 88.6 fL (81.0-99.0); MONOCYTES % (AUTO) 12.1 %; NEUTROPHILS % (AUTO) 56.5 %; PLT - PLATELET COUNT 180 10^3/uL (130-450); RED BLOOD COUNT 3.87 10^6/uL (4.20-5.40); RED CELL DISTRIBUTION WIDTH 20.3 % (12.0-15.0); WHITE BLOOD COUNT 22.1 x10^3/uL (4.8-10.8)
[2020-03-20 11:07] LABS: ABNORMAL LYMPHS % (MANUAL) 0 %
[2020-03-20 11:24] LABS: BAND NEUTROPHILS % (MANUAL) 15 %; BASOPHILS # (MANUAL) 0.4 10^3/uL (0-0.1); BASOPHILS % (MANUAL) 2 %; EOSINOPHILS # (MANUAL) 0.2 10^3/uL (0-0.7); LYMPHOCYTES # (MANUAL) 3.3 10^3/uL (1.5-3.5); LYMPHOCYTES % (MANUAL) 15 %; METAMYELOCYTES % (MANUAL) 4 %; MONOCYTES # (MANUAL) 3.3 10^3/uL (0.0-1.0); MYELOCYTES % (MANUAL) 5 %
[2020-03-20 11:26] LABS: PLATELET ESTIMATE, MANUAL NORMAL (130-450,000) (NORMAL); PLATELET MORPHOLOGY NORMAL APPEARANCE (NORMAL)
[2020-03-20 11:27] LABS: DIFFERENTIAL COMMENT MANUAL DIFFERENTIAL
[2020-03-20 12:53] LABS: BILIRUBIN,URINE NEGATIVE (NEGATIVE); GLUCOSE, URINE (UA) NEGATIVE (NEGATIVE); KETONES,URINE (UA) NEGATIVE (NEGATIVE); LEUKOCYTE ESTERASE, URINE TRACE (NEGATIVE); NITRITE,URINE NEGATIVE (NEGATIVE); OCCULT BLOOD,URINE TRACE-INTA (NEGATIVE); PROTEIN,URINE NEGATIVE (NEGATIVE); UROBILINOGEN,URINE 0.2 (NORMAL) E.U./dL (NORMAL)
[2020-03-20 12:56] LABS: CLARITY,URINE HAZY (CLEAR)
--- NOTE | 2020-03-20 13:01 | Ultrasound Report ---
Reason: R arm swelling/lump/pain Procedure Date: 03/20/2020 Accession Number: [id number] / [id number] Procedure: US - Duplex Ext Veins Right CPT Code: Addended Final Report FULL RESULT: EXAM: RIGHT LOWER EXTREMITY VENOUS ULTRASOUND EXAM DATE: 03/20/2020 12:30 PM. CLINICAL HISTORY: Right arm swelling. Localized swelling, mass and lump, right arm. COMPARISON: None. TECHNIQUE: Real-time sonographic vascular imaging was performed by the oracle fusion consultant through the lower extremity utilizing both color-flow and Doppler spectral analysis. Multiple sales representative aircraft static images were saved for review. FINDINGS: Common Femoral Vein (CFV): Normal. CFV-GSV Junction: Normal. Profunda Femoral Vein (PFV): Normal. Femoral Vein (FV) Prox: Normal. Femoral Vein (FV) Mid: Normal. Femoral Vein (FV) Dist: Normal. Popliteal Vein: Normal. Posterior Tibial Veins: Normal. Peroneal Veins: Normal. Contralateral Side CFV: Normal. Other: None. IMPRESSION: No evidence for deep venous thrombosis. RADIA CORRECTION: INCORRECT NORMAL TEMPLATE LOADED. EXAM: RIGHT UPPER EXTREMITY VENOUS ULTRASOUND EXAM DATE: 03/20/2020 12:30 PM. CLINICAL HISTORY: R arm swelling/lump/pain. COMPARISON: None. TECHNIQUE: Real-time sonographic vascular imaging was performed by the oracle fusion consultant through the upper extremity utilizing both color-flow and Doppler spectral analysis. Multiple sales representative aircraft static images were saved for review. FINDINGS: Internal Jugular Vein (IJV): Normal. Subclavian Vein (SCV): Normal. Axillary Vein : Normal. Cephalic Vein (superficial vein): Normal. Basilic Vein (superficial vein): Normal. Brachial Vein: Normal. Contralateral Side: Subclavian Vein: Normal. Other: None. IMPRESSION: No evidence for deep vein thrombosis. RADIA
[2020-03-20 13:16] LABS: BACTERIA,URINE Few /HPF (None Seen); EPITHELIAL CELLS,UR FEW Transitional /HPF (<= Few); RBC,URINE 0-5 /HPF (0-5); SQUAMOUS EPITHELIAL CELL,UR FEW Squamous (<= Few); WBC CLUMPS,URINE PRESENT
[2020-03-20 13:17] LABS: CASTS, URINE 0-2 Hyaline Casts /LPF
[2020-03-20 14:01] LABS: ALBUMIN 4.6 g/dL (3.2-5.5); ALBUMIN/GLOBULIN RATIO 1.6 (1.0-2.2); CALCIUM 9.5 mg/dL (8.5-10.3); TOTAL PROTEIN 7.5 g/dL (6.7-8.2)
[2020-03-20] MEDS ORDERED: ONDANSETRON 4 MG/2 ML VIAL IVP PRN (16:09)
[2020-03-20] MEDS ORDERED: SODIUM CHLORIDE FLUSH 0.9% 10 ML SYRINGE IVP PRN (16:09)
[2020-03-20] MEDS ORDERED: ACETAMINOPHEN 325 MG TABLET PO PRN (16:09)
[2020-03-20] MEDS ORDERED: CHERRY SYRUP 10 ML UDC PO ONE (16:11)
[2020-03-20] MEDS ORDERED: PHYTONADIONE 10 MG/ML AMP PO ONE (16:11)
[2020-03-20] MEDS ORDERED: hydrALAZINE INJ 20 MG/ML VIAL IVP PRN (16:14)
--- NOTE | 2020-03-20 16:22 | HISTORY & PHYSICAL EXAMINATION ---
Chief Complaint - Chief Complaint Chief Complaint: Right arm pain History of Present Illness - Admitted From Admitted From:: Home - History Obtained From Records Reviewed: Yes History obtained from: Patient, Spouse, ER Physician, EMR - History of Present Illness HPI Comment/Other: This is a 84-year-old female with a past medical history significant for metastatic left cheek squamous cell carcinoma, myeloproliferative disorder, atrial fibrillation s/p pacemaker and on coumadin who presents today complaining of right arm pain. She reports that she noticed a small amount of swelling over her right forearm on Saturday with redness of the area. She states over the weekend the area has become more sore. She denies any trauma to the area. She denies any pain but complains of soreness. She reports 12 days ago she was prescribed Keflex for 5 days as she had chin pain which her radiation oncologist thought could be an infection. She completed a 5 days of Keflex with only minor improvement in her symptoms and so she saw another provider who prescribed her clindamycin which she has been taking for the past week. She reports her pain at that area is relatively controlled at the moment. She told the emergency department physician that she noticed some bright red blood on her underwear today the patient denied any signs of bleeding to me. She reports no blood in her stool or blood in her urine. Reports she was treated for urinary tract infection last month but currently denies any dysuria, urgency, frequency. She reports noticing some bruising over the past few days predominately over her arms. She states that she was provided a new prescription for Coumadin last week and has been taking 5 mg twice a day. She denies any change in her diet. She states she had an INR check 2 weeks ago and it was around 2.2. She reports no abdominal pain, nausea, vomiting. She denies any headache, blurry vision, motor deficits. In the emergency department, an INR was checked and it was unable to be performed by the lab. A repeat lab draw was obtained and her INR was found to be greater than 8. Her PTT was also elevated at 121. Her CBC revealed a white count of 22.1, hemoglobin of 11.7, platelet count of 180. She did have 15% ba nds and 2% blast cells. All these values are relatively similar to past CBCs. Ultrasound right upper extremity was obtained given her right arm pain and this was negative for DVT. Given her elevated INR, medicine was consulted for observation. I did discuss goals of care with the patient and she would like to be a full code. History - Past Medical History Cardiovascular: reports: Atrial fibrillation Respiratory: reports: None Neuro: reports: None Endocrine/Autoimmune: reports: None GI: reports: GERD : reports: None HEENT: reports: None Psych: reports: None Musculoskeletal: reports: None MRSA Hx?: No Other Past Medical History: Metastatic left cheek squamous cell carcinoma. Myeloproliferative disorder. Chronic leukocytosis. Chronic anemia and thrombocytopenia. - Past Surgical History Cardiovascular: reports: Pacemaker Derm: reports: Skin cancer surgery - Family & Social History Family History Comment/Other: She reports her mother from cancer at a young age. She was a smoker. Living arrangement: At home Living Situation: With spouse/s.o. Social History Notes: She has been living on [address] [facility] with her since 1987. 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 She worked in [employer] in [facility]. She smoked for 14 years from the age of [age]. She drinks approximately 1 alcoholic beverage every 4 to 5 days. - POLST Patient has POLST: No Meds/Allgy - Home Medications Home Medications: Ambulatory Orders Medication Instructions Recorded Confirmed Digoxin 125 mcg PO DAILY 04/02/13 03/20/20 Warfarin [Coumadin] 10 mg PO DAILY 06/30/13 03/20/20 Ruxolitinib Phosphate [Jakafi] 10 mg PO BID 02/19/17 03/20/20 Diltiazem HCl [Diltiazem 24Hr ER] 240 mg PO DAILY 03/20/20 03/20/20 - Allergies Allergies/Adverse Reactions: Allergies Allergy/AdvReac Type Severity Reaction Status Date / Time clopidogrel bisulfate * Allergy Unknown unknown Verified 02/09/20 13:12 [From Plavix] Review of Systems - Constitutional Constitutional: denies: Fatigue, Fever, Chills, Weakness, Poor appetite - Eyes Eyes: denies: Blurred vision - Ears, Nose & Throat Ears, Nose & Throat: reports: Other (Chin pain.) - Cardiovascular Cariovascular: denies: Chest pain, Exertional dyspnea, Decr. exercise tolerance - Respiratory Respiratory: denies: Cough, SOB at rest, SOB with exertion - Gastrointestinal Gastrointestinal: denies: Abdominal pain, Abdominal distention, Constipation, Diarrhea, Bloody stools, Nausea, Vomiting - Genitourinary Genitourinary: denies: Dysuria, Frequency, Urgency, Hematuria - Integumentary Integumentary: reports: Pigment changes, Other (Easy bruising. Erythema over the right arm.). denies: Rash - Neurological Neurological: denies: General weakness, Focal weakness, Headache - Hematologic/Lymphatic Hematologic/Lymphatic: reports: Bruising - All Other Systems All Other Systems: reports: Reviewed and negative Prior Level of Functionality: She is independent with her ADLs. Exam - Vital Signs Reviewed Vital Signs: Yes Vital Signs: Vital Signs x48h Temp Pulse Resp BP Pulse Ox 03/20/20 15:00 71 15 151/82 H 96 03/20/20 13:47 69 16 139/77 H 98 03/20/20 11:28 70 12 148/77 H 95 03/20/20 10:22 36.4 C L 62 16 153/102 H 100 - Physical Exam General Appearance: positive: No acute distress, Alert Eyes Bilateral: positive: Normal inspection, Conjunctivae nml ENT: positive: ENT inspection nml Neck: positive: Nml inspection, Other (The area under her chin is firm but without erythema or tenderness) Respiratory: positive: No respiratory distress. negative: Wheezes, Rales, Rhonchi Cardiovascular: positive: Regular rate & rhythm, No murmur. negative: Tachycardia, Bradycardia, Systolic murmur Abdomen: positive: Non-tender, No distention. negative: Tenderness, Guarding, Rebound Skin: positive: Warm, Dry, Other (She has scattered areas of ecchymosis at different stages over her upper extremities.) Extremities: positive: Full ROM, No pedal edema, Other (She has mild erythema over the medial aspect of her forearm approximately 5 x 3 cm. There is slight soft tissue swelling but no appreciable mass. The area is minimally tender to palpation.) Neurologic/Psychiatric: positive: Oriented x3, Motor nml. negative: Disoriented to person, Disoriented to place, Disoriented to time Conclusion/Plan - Problem List (1) Supratherapeutic INR Conclusion/Plan: Her INR is elevated at greater than 8. This likely secondary to her increased Coumadin dose recently as well as possibly the use of clindamycin and Keflex. Fortunately, there appears to be no signs of significant bleeding and her hemoglobin is at her baseline. Given her lab is unable to tell us her actual INR, we will observe her overnight. We will give her vitamin K 5 mg orally now. Recheck INR and hemoglobin in the morning. If there is evidence of bleeding, we will recheck a hemoglobin this evening. We will hope to discharge her tomorrow once we confirm her INR is decreasing. (2) Pain in right forearm Conclusion/Plan: This is what brought her to the emergency department today. She has slight tenderness on exam with mild erythema. No obvious soft tissue swelling appreciated. I doubt this is cellulitis given she has been on Keflex and clindamycin for the past 12 days. This could possibly be a hematoma given her elevated INR. Duplex of the right upper extremity was negative for DVT. Given her continued tenderness, we will obtain an x-ray of the forearm. We will treat her pain with Tylenol as needed. (3) Myeloproliferative disorder Conclusion/Plan: She is on Jakafi which will be continued. Continue outpatient follow-up with oncology. (4) History of leukocytosis Conclusion/Plan: Her white count is elevated at 22.1 with 15% bands and 2% blast cells. Her white count is chronically elevated although it is slightly higher than her baseline. There is no evidence of infection at this moment. Her urinalysis does have greater than 25 WBCs but she has no symptoms of infection and therefore we will not start antibiotics. She is on clindamycin for presumed oral infection which we will continue. (5) Atrial fibrillation Conclusion/Plan: She is on Coumadin, digoxin, diltiazem. She is also status post pacemaker. We will continue her Cardizem and digoxin. Check a digoxin level in the morning. We will hold the Coumadin given her supratherapeutic INR. (6) Squamous cell cancer of skin of left cheek Conclusion/Plan: She is status post Mohs surgery and radiation. She is currently on clindamycin for presumed soft tissue infection in the submandibular region. A CT of the neck performed February 21 was concerning for stranding the subcutaneous fat which could be possible cellulitis. We will continue her on the clindamycin she was previously prescribed. She can continue to follow-up with her radiation oncologist on outpatient basis. (7) Hypertension Conclusion/Plan: Her blood pressure is elevated in the 150 systolic. She is on diltiazem at home otherwise she is not on any antihypertensives. We will continue her home Cardizem. Will consider adding a second antihypertensive if need be. - Lab Results Lab results reviewed: Yes Marcel Bones: 03/20/20 10:44 03/20/20 10:44 - Diagnostic Imaging Results Diagnostic Imaging Results: positive: Final report reviewed Core Measures - Anticipated LOS I expect patient to be DC'd or transferred within 96 hours.: Yes - Issues Hospital Issues and Management Plan: 84-year-old female with supratherapeutic INR. Will observe overnight after administering vitamin K and trend her PT/INR. - DVT/VTE - Prophylaxis VTE/DVT Device ordered at admit?: Yes VTE/DVT Prophylaxis med ordered at admit?: No Not Ordered - Medical Reason: Contraindicated
[2020-03-20] MEDS: SODIUM CHLORIDE FLUSH 0.9% 10 ML SYRINGE IVP SCH (17:06)
--- NOTE | 2020-03-20 17:25 | XRAY Report ---
Reason: Right forearm pain with swelling and erythema. Procedure Date: 03/20/2020 Accession Number: [id number] / [id number] Procedure: XR - Forearm RT CPT Code: Final Report FULL RESULT: EXAM: RIGHT FOREARM RADIOGRAPHY EXAM DATE: 03/20/2020 05:00 PM. CLINICAL HISTORY: Right forearm pain with swelling and erythema. COMPARISON: None. TECHNIQUE: 2 views. FINDINGS: Bones: No acute fracture. Joints: Wrist and elbow joints demonstrate grossly normal alignment. No evidence for elbow joint effusion. Soft Tissues: Unremarkable. IMPRESSION: No acute fracture of the right radius or ulna. RADIA
[2020-03-20] MEDS: CLINDAMYCIN 150 MG CAPSULE PO SCH (20:43)
[2020-03-20] MEDS: Ruxolitinib Phosphate [Jakafi] 10 MG PO SCH (20:43)
[2020-03-20] MEDS ORDERED: diltiaZEM CD 240 MG CAPSULE PO SCH (21:00)
[2020-03-21] MEDS: SODIUM CHLORIDE FLUSH 0.9% 10 ML SYRINGE IVP SCH ×2 (02:06→08:31)
[2020-03-21 05:24] LABS: BASOPHILS % (AUTO) 1.6 %; EOSINOPHILS % (AUTO) 1.8 %; HGB - HEMOGLOBIN 10.1 g/dL (12.0-16.0); LYMPHOCYTES % (AUTO) 11.5 %; MEAN CORPUSCULAR HEMOGLOBIN 29.8 pg (27.0-31.0); MEAN CORPUSCULAR HGB CONC 34.1 g/dL (32.0-36.0); MEAN CORPUSCULAR VOLUME 87.3 fL (81.0-99.0); MONOCYTES % (AUTO) 9.6 %; NEUTROPHILS % (AUTO) 58.8 %; PLT - PLATELET COUNT 144 10^3/uL (130-450); RED BLOOD COUNT 3.39 10^6/uL (4.20-5.40); RED CELL DISTRIBUTION WIDTH 20.1 % (12.0-15.0); WHITE BLOOD COUNT 16.1 x10^3/uL (4.8-10.8)
[2020-03-21 05:30] LABS: INR 3.1 (0.8-1.2)
[2020-03-21 05:40] LABS: ABNORMAL LYMPHS % (MANUAL) 0 %
[2020-03-21 05:42] LABS: PARTIAL THROMBOPLASTIN TIME 53.6 secs (24.9-33.3)
[2020-03-21 05:56] LABS: CALCIUM 9.1 mg/dL (8.5-10.3); CREATININE 0.9 mg/dL (0.4-1.0)
[2020-03-21 06:03] LABS: DIGOXIN 0.7 ng/mL
[2020-03-21 06:14] LABS: BAND NEUTROPHILS % (MANUAL) 7 %; BASOPHILS # (MANUAL) 0.6 10^3/uL (0-0.1); BASOPHILS % (MANUAL) 4 %; LYMPHOCYTES # (MANUAL) 2.1 10^3/uL (1.5-3.5); LYMPHOCYTES % (MANUAL) 13 %; METAMYELOCYTES % (MANUAL) 2 %; MONOCYTES # (MANUAL) 1.8 10^3/uL (0.0-1.0); MYELOCYTES % (MANUAL) 10 %
[2020-03-21 06:21] LABS: PLATELET ESTIMATE, MANUAL NORMAL (130-450,000) (NORMAL); PLATELET MORPHOLOGY NORMAL APPEARANCE (NORMAL)
[2020-03-21 06:22] LABS: DIFFERENTIAL COMMENT MANUAL DIFFERENTIAL
--- NOTE | 2020-03-21 06:36 | PHARMACY PROGRESS NOTE ---
- Best Possible Medication History Admit Date and Time: 03/20/20 1609 Processed by: Pharmacy Medication History completed: Yes Patient Interview: Completed Secondary Source(s): Physician records, Pharmacy records, Insurance records As the person ultimately responsible for medication therapy, providers are able to order a medication from an existing home medication list in [facility] via the "Reconcile Routine" prior to Confirmation of that medication by legal support assistant. Such practice is discouraged except when the physician, in their clinical judgment, deems that a medical need exists for a medication without regard to previous use.
[2020-03-21] MEDS: CLINDAMYCIN 150 MG CAPSULE PO SCH (08:29)
[2020-03-21] MEDS: Ruxolitinib Phosphate [Jakafi] 10 MG PO SCH (08:31)
[2020-03-21] MEDS ORDERED: ceFAZolin 1 GM VIAL IVP STA (08:51)
[2020-03-21] MEDS ORDERED: DIGOXIN 125 MCG TABLET PO SCH (09:00)
[2020-03-21 11:31] LABS: HGB - HEMOGLOBIN 10.3 g/dL (12.0-16.0)
--- NOTE | 2020-03-21 11:36 | Discharge Plan ---
Discharge Plan Problem Reviewed?: Yes Disposition: Home, Self Care Condition: Good Prescriptions: Warfarin [Coumadin] 5 mg PO 1400 #30 tablet Diet: Regular Activity Restrictions: Activity as Tolerated Instruction Topics: Coumadin, COVID-19 [facility], COVID-19 [facility] Statement, Flu and Cold: Nutrition, Prevention and Treatment Tips Health Concerns: You were seen in the hospital because your INR level was quite elevated and we wanted to make sure you are not bleeding. You were given vitamin K which helps reverse the INR and today it is 3.1. Your blood counts have remained stable and there is no signs of bleeding. You are stable for discharge. Plan of Treatment: You may continue to take your Coumadin beginning tomorrow March 22. Please return to your previous dosing of Coumadin. Please take 5 mg of Coumadin daily. Please have your INR checked in 3 days and your primary care provider can adjust your Coumadin dose if need be. Your ideal range should be between 2-3. You can continue to take the antibiotics you are previously prescribed until that treatment course is completed. Please return to the emergency department if you develop fever, chills, worsening redness or pain of your right arm. You may take Tylenol as needed for pain. You can also apply warm compresses to the arm. Care Goals: Please have your INR checked in 3 days and follow-up with your primary care provider this week. Assessment: Patient expressed understanding of the treatment plan. No Smoking: If you smoke, Please STOP! Call for help. Follow-up with: Jian Haley MD [Primary Care Provider] -
--- NOTE | 2020-03-21 12:52 | DISCHARGE SUMMARY ---
Discharge Summary Admit Date: 03/20/20 Discharge Date: 03/21/20 Discharging Provider: Kanu Barnard Primary Care Provider: Jian Haley Code Status: Attempt Resuscitation Condition at Discharge: Good Discharge Disposition: 01 Home, Self Care - DIAGNOSES Admission Diagnoses: Supratherapeutic INR Pain in right forearm Myeloproliferative disorder History of leukocytosis Atrial fibrillation Squamous cell cancer of skin of left cheek Hypertension Discharge Diagnoses with Status of Each Condition: Supratherapeutic INR - resolved. Pain in right forearm - stable. Myeloproliferative disorder - stable. History of leukocytosis - stable. Atrial fibrillation - stable. Squamous cell cancer of skin of left cheek - stable. Hypertension - stable. - HPI History of Present Illness: This is a 84-year-old female with a past medical history significant for metastatic left cheek squamous cell carcinoma, myeloproliferative disorder, atrial fibrillation s/p pacemaker and on coumadin who presents today complaining of right arm pain. She reports that she noticed a small amount of swelling over her right forearm on Saturday with redness of the area. She states over the weekend the area has become more sore. She denies any trauma to the area. She denies any pain but complains of soreness. She reports 12 days ago she was prescribed Keflex for 5 days as she had chin pain which her radiation oncologist thought could be an infection. She completed a 5 days of Keflex with only minor improvement in her symptoms and so she saw another provider who prescribed her clindamycin which she has been taking for the past week. She reports her pain at that area is relatively controlled at the moment. She told the emergency department physician that she noticed some bright red blood on her underwear today the patient denied any signs of bleeding to me. She reports no blood in her stool or blood in her urine. Reports she was treated for urinary tract infection last month but currently denies any dysuria, urgency, frequency. She reports noticing some bruising over the past few days predominately over her arms. She states that she was provided a new prescription for Coumadin last week and has been taking 5 mg twice a day. She denies any change in her diet. She states she had an INR check 2 weeks ago and it was around 2.2. She reports no abdominal pain, nausea, vomiting. She denies any headache, blurry vision, motor deficits. In the emergency department, an INR was checked and it was unable to be performed by the lab. A repeat lab draw was obtained and her INR was found to be greater than 8. Her PTT was also elevated at 121. Her CBC revealed a white count of 22.1, hemoglobin of 11.7, platelet count of 180. She did have 15% bands and 2% blast cells. All these values are relatively similar to past CBCs. Ultrasound right upper extremity was obtained given her right arm pain and this was negative for DVT. Given her elevated INR, medicine was consulted for observation. I did discuss goals of care with the patient and she would like to be a full code. - HOSPITAL COURSE Hospital Course: She was placed in observation for supratherapeutic INR. Initial INR was greater than 8. Her hemoglobin was stable compared to baseline and there was no evidence of bleeding. She was given 5 mg of vitamin K orally. Repeat INR the following morning was down to 3.1. Her hemoglobin did decrease to 10.1 from 11.7. Repeat hemoglobin was obtained 6 hours later which was stable at 10.3. There continued to be no evidence of bleeding. She was asked to resume her Coumadin on March 22 at 5 mg daily and to have her INR checked in 3 days. She did complain of right forearm pain with mild erythema. Ultrasound of the right extremity was negative for DVT. An x-ray of the right forearm was also unremarkable. She had been on clindamycin and Keflex for the past 12 days for presumed soft tissue infection of the chin and therefore there is low suspicion for cellulitis. The following day in the area of erythema/contusion increase slightly. It was not warm to touch with no fluctuance. She was given 1 dose of IV cefazolin. Given she has chronic leukocytosis it is difficult to attribute if this is secondary to infection but it decreased on hospital day 2. A CRP was checked which was less than 1. Given this, it was felt the area is likely more a contusion or an area of ecchymosis due to her supratherapeutic INR rather than infection. This was discussed with the patient and we discussed that antibiotics would likely not be effective. She was asked to follow-up with her primary care provider this week. She was also informed to return to the emergency department if she developed any fevers, chills, worsening pain, erythema. - ALLERGIES Allergies/Adverse Reactions: Allergies Allergy/AdvReac Type Severity Reaction Status Date / Time clopidogrel bisulfate * Allergy Unknown unknown Verified 02/09/20 13:12 [From Plavix] - MEDICATIONS Home Medications: Ambulatory Orders Medication Instructions Recorded Confirmed Digoxin 125 mcg PO DAILY 04/02/13 03/20/20 Ruxolitinib Phosphate [Jakafi] 10 mg PO BID 02/19/17 03/20/20 Diltiazem HCl [Diltiazem 24Hr ER] 240 mg PO DAILY 03/20/20 03/20/20 Warfarin [Coumadin] 5 mg PO 1400 #30 tablet 03/21/20 - PHYSICAL EXAM AT DISCHARGE General Appearance: positive: No acute distress, Alert Eyes Bilateral: positive: Normal inspection, PERRL, EOMI, Conjunctivae nml ENT: positive: ENT inspection nml Neck: positive: Other (There is submandibular firmness and palpable lymph nodes.) Respiratory: positive: No respiratory distress. negative: Wheezes, Rales, Rhonchi Cardiovascular: positive: Regular rate & rhythm, No murmur. negative: Tachycardia, Bradycardia Peripheral Pulses: positive: 2+ Abdomen: positive: Non-tender, No distention. negative: Tenderness Skin: positive: Warm, Dry, Other (There is an area of mild erythema/ecchymosis over the medial aspect of the right forearm. It is tender to palpation but there is no fluctuance, warmth.) Extremities: positive: Full ROM, No pedal edema Neurologic/Psychiatric: positive: Oriented x3, Motor nml - LABS Result Diagrams: 03/21/20 11:25 03/21/20 05:12 - DIAGNOSTIC IMAGING Diagnostic Imaging Results: Final report reviewed - FOLLOW UP Follow Up: She was asked to have her INR checked in 3 days and follow-up with her primary care provider this week. - TIME SPENT Time Spent in Discharge (Minutes): 30
[2020-03-21 13:49] VITALS: BP 125/65
== END 2020-03-21 14:26 | disposition home or self-care (01) ==
LOC: ED 10:11 → MS2 16:09
PROVIDERS: ADMIT Internal Medicine; ATTEND Internal Medicine
DX: M79.81 Nontraumatic hematoma of soft tissue (principal); R79.1 Abnormal coagulation profile; T45.515A Adverse effect of anticoagulants, initial encounter; Y92.009 Unspecified place in unspecified non-institutional (private) residence as the place of occurrence of the external cause; C94.6 Myelodysplastic disease, not elsewhere classified; C44.329 Squamous cell carcinoma of skin of other parts of face; C79.9 Secondary malignant neoplasm of unspecified site; I48.91 Unspecified atrial fibrillation; I10 Essential (primary) hypertension; D64.9 Anemia, unspecified; D69.6 Thrombocytopenia, unspecified; R22.0 Localized swelling, mass and lump, head; R13.10 Dysphagia, unspecified; Z79.899 Other long term (current) drug therapy; Z95.0 Presence of cardiac pacemaker; Z87.891 Personal history of nicotine dependence
CPT/HCPCS: 36415; 73090; 80048; 80053; 80162; 81001; 83690; 85014; 85018; 85025; 85610; 85730; 86140; 87077; 87086; 87181; 93971; 96374; 99285; A9270; G0378; 81003

== ENCOUNTER 2020-03-31 08:00 | Outpatient (CLI) | payer MEDICARE | END 2020-03-31 23:59 | disposition home or self-care (01) | LOC: LAB.WCP 08:00 | PROVIDERS: ATTEND Family Medicine | DX: I48.91 Unspecified atrial fibrillation (principal); Z79.01 Long term (current) use of anticoagulants ==

== ENCOUNTER 2020-05-06 10:54 | Outpatient (CLI) | payer MEDICARE | END 2020-05-06 10:55 | disposition home or self-care (01) | LOC: LAB.S 10:54 | PROVIDERS: ATTEND Family Medicine | DX: I48.91 Unspecified atrial fibrillation (principal); Z79.01 Long term (current) use of anticoagulants | CPT/HCPCS: 85610 ==

== ENCOUNTER 2020-06-15 15:30 | Outpatient (CLI) | payer MEDICARE ==
--- NOTE | 2020-06-15 18:25 | CONSULTATION NOTE ---
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 She had presented with local recurrence, in March, with a right submental lymph node, and was referred to [facility] for surgery. Their understanding was she had a 70% chance of cure with this, unfortunately she developed new subcutaneous nodules in her neck, and opening of her wound. She had had a bilateral neck dissection with a right pectoralis major flap done on 04/16/2020. The area of surgical dissection and wound, are worsening, with multiple nodules, she has now developed a new nodule on her right chin about 1 cm area, her incision along her left submandibular has opened and is draining a significant amount of serosanguineous thick drainage, she has been recently switched to today to Levaquin 750 mg daily. Her tongue is numb and as a result of the surgery, is having increased trouble swallowing, continues to have weight loss, though does not present with significant pain other than with dressing change. She is quite frail, very fatigued, she is underlying myeloproliferative disorder/myelofibrosis, Randolph 2+. She has worsening leukocytosis. She started Keytruda last week, with the hope to slow down the progression, and improve quality and quantity of life. Unfortunately sequela of her current condition is rapidly deteriorating. Patient's original squamous cell carcinoma was on her left cheek, she did receive a Mohs treatment for this, back in I believe 2007. She did have a current submandibular will node in 2019, and had that removed. She was to receive radiation, unfortunately unable to tolerate that she received 4 of 30 treatments at that time. She has been treated ongoing previously for her myeloproliferative disorder/myelofibrosis on Marcelino if I until 04/2020. He also has underlying atrial fib, status post pacemaker 2008, on warfarin. Palliative care has been asked to meet with patient and regarding goals of care, provide ongoing support and symptom management. Medical/Surgical History - Past Medical History Cardiovascular: reports: Atrial fibrillation Respiratory: reports: None Neuro: None Endocrine/Autoimmune: reports: None GI: reports: GERD : reports: Incontinence HEENT: reports: Chronic hearing loss Psych: reports: None Musculoskeletal: reports: Osteoarthritis, Fatigue MRSA Hx?: No - Past Surgical History General: reports: Other (bilateral neck dissection with pectorlis major flap) Cardiovascular: reports: Pacemaker Derm: reports: Skin cancer surgery ([facility] for left cheek squamous cell cancer) - Substance History Use: Uses substance without health or social issues: Tobacco (hx of smoking) Social History - Living Situation Living arrangement: At home Living Situation: With spouse/s.o. Support System: Patient lives at home with her venkatesh Freeman, they have been together since 81, and since . They have moved to [facility] in [place], they have a blended family. Pat herself has 3 sons, 1 son and his are coming to visit this weekend. They describes themselves as people of niels, they are members of [employer] 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 Has been is a very dedicated and able caregiver, but they both recognize the seriousness of her condition. Family History - Family History Family History: Mother: , Alcoholism, Father: , Cancer Medications/Allergies - Medications Home Medications: Ambulatory Orders Medication Instructions Recorded Confirmed Digoxin 125 mcg PO DAILY 04/02/13 06/16/20 Diltiazem HCl [Diltiazem 24Hr ER] 240 mg PO DAILY 03/20/20 06/16/20 Warfarin [Coumadin] 5 mg PO 1400 05/10/20 06/16/20 traMADol [Ultram] 50 mg PO Q8HR PRN 05/31/20 06/16/20 Levofloxacin [Levaquin] 750 mg PO DAILY #10 tablet 06/14/20 06/16/20 polyethylene glycoL 3350 [Miralax] 8.5 mg PO DAILY PRN 06/16/20 06/16/20 - Allergies Allergies/Adverse Reactions: Allergies Allergy/AdvReac Type Severity Reaction Status Date / Time clopidogrel bisulfate * Allergy Unknown unknown Verified 06/14/20 11:58 [From Plavix] Review of Systems - Constitutional Constitutional: reports: Fatigue (worsening), Weakness, Poor appetite, Weight loss (109; 131 baseline previous). denies: Fever, Chills - Ears, Nose & Throat Ears, Nose & Throat: reports: Hearing loss, Hearing aids, Dry mouth, Other (dyshapgia) - Cardiovascular Cardiovascular: reports: Irregular heart rate, Exertional dyspnea, Decr. exercise tolerance. denies: Chest pain - Respiratory Respiratory: reports: SOB with exertion. denies: Wheezing, SOB at rest - Gastrointestinal Gastrointestinal: reports: Constipation, Early satiety - Genitourinary Genitourinary: reports: Incontinence - Musculoskeletal Musculoskeletal: reports: Back pain, Muscle aches, Stiffness, Limited range of motion (neck), Muscle weakness, Assistive devices (uses walker when up) - Integumentary Integumentary: reports: Dryness, Other (malignant wound) - Neurological Neurological: reports: General weakness, Slurred speech (mechanical) - Psychiatric Psychiatric: reports: Depression, Anxiety - Hematologic/Lymphatic Hematologic/Lymphatic: reports: Anemia, Bruising, Bleeding tendencies, Recurrent infections (third round of AB) - All Other Systems All Other Systems: reports: Reviewed and negative Physical Exam - Vital Signs Temperature: 97.7 C Pulse Rate: 89 Respiratory Rate: 18 O2 Saturation: 97 (ra @ rest) Blood Pressure: 122/68 - Physical Exam General Appearance: positive: Mild distress Eyes Bilateral: positive: Normal inspection ENT: positive: Hearing loss, Hearing aids Neck: positive: Stiff neck (poor range of motion), Other (with dressing; but visible draining submandibular opening of 3 x 1 cm; foul smelling suspect related to malignant process vs wound) Cardiovascular: positive: Irregularly irregular Respiratory: positive: Diminished throughout. negative: Wheezes, Rales, Rhonchi Abdomen: positive: Non-tender, Soft Skin: positive: Pallor, Dryness, Other (examinied pictures of disrupted wound flap from orginal surgery; large area of involvement of cutaneous nodules denies pain except with dressing change; lidocaine ointment helped) Extremities: positive: No pedal edema Neurologic/Psychiatric: positive: Oriented x3, Weakness, Facial droop (causes by surgery;), Slurred/abnml speech, Flat affect Palliative Care - POLST Patient has POLST: Yes POLST Status: DNR, Selective Treatment (completed at visit; ab okay to prolong life (currently on) medically assisted nutrition to be weighed in context of decision-does not want to prolong suffering or life if not appropriate) Pain: Pain improved, Location (neck with dressing changes; tramadol previous to change) Tiredness/Fatigue: Severe (7-10) Drowsiness/Sedation: Moderate (4-6) Nausea: None Anorexia: Moderate (4-6), Weight loss (difficult with dysphagia to get food down; mostly on shakes/boost/soft foods like yogurt) Dyspnea: Moderate (4-6) Depression: Moderate (4-6) Anxiety: Moderate (4-6) Feelings of wellbeing/Perceived Quality of Life: Poor, Worsening Sleep: Variable sleep pattern Constipation: Yes, Unmanaged Performance Status: Patient is quite sedentary, can walk short distances with her walker, she has not had any recent falls. Her does help her with bathing, she does not shower as she gets really itchy skin, but uses bath wipes. She has been declining fairly rapidly over the last several weeks with her functional status.I would put her at a PPS of 50%. - Palliative Care Discussion: Lengthy discussion regarding patient's current status, she does understand the seriousness of her illness. That things are progressing, and that immunotherapy may or may not be of help nor in timely help. She is quite exhausted and tired with the last few months, wondering at what point she should call it quits. She does not want any further aggressive intervention, is willing to continue with immunotherapy, we did discuss in the context of this that she could weigh this on a week by week judgment of how her quality of life is impacted, and each treatment in the same context. Her who adores her, is hopeful she will continue, but does not want to prolong her suffering and does understand her struggle. We discussed there were two paths she could take, she could choose at any point to transition to comfort measures only, which would mean focusing on no further interventions except for comfort and transition to hospice team, that the complications or sequela of her disease will dictate her journey and how quickly things go and it will be decided for her. Though this is still would be receiving team of hospice to make sure her end of life journey and support for her family were in place. She is clear she does not want any further aggressive interventions, though did not rule out definitively hospitalization for treatment of sepsis/infection though does not want to in the hospital. We did go ahead and initiate a POLST, as they had not had conversation or completed this. We did complete it as a DNA R/DNI that we would allow natural when her time came, we did leave it at the "middle ground" at selective treatments, she is receiving immunotherapy, nd may or may not accept ongoing supportive therapies such as hydration depending on situation. Her D POA would fall to her David Trammell, but did encourage them to identify a second. Her son is coming to visit, they do acknowledge they have further documents and things they need to put together for her end-of-life planning. We did discuss the role of palliative care, as far as supporting symptom management, anticipatory guidance, agreed for weekly support at least for the short-term given the precarious nests of her current situation, and her ambivalence at this point for continuing on treatment. 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 She is currently being treated with Levaquin 750 mg daily, concern for infectious process, though is a severe malignant wound concern for further deterioration. Patient is quite frail, challenged with dysphagia and keeping nutritional/hydration status stable. She is quite fatigued, and is struggling with decision to transition to more comfort focused care. Palliative care providing support for symptom management and anticipatory guidance as well as advanced care planning. Recommendations/Counseling Done: 1. Malignant wound left neck area. This is continue to progress with multiple subcutaneous nodules and open surgical incision. She is currently being treated with Levaquin 750 mg for 10 days, this is following 1 week off of Cipro. Wound does have a significant manner drainage, and foul odor, suspect this may also be related to the malignant process of her wound. We will see if any improvement, may benefit from crushed Flagyl in wound bed for odor control. She is being supported by home health of eating home health care, 3 times a week, left my contact information and will reach out to rn case manager hospice. 2. Pain of neoplastic origin. Patient with only localized discomfort per her report, with wound dressing change. Lidocaine has improved this, takes 1 tramadol per prior to dressing change. Denies any other discomfort at this point in time. 3. Protein calorie malnutrition. This is multifactorial, patient is challenged with her surgery has numbness, dysphagia and difficulty swallowing. She is working with speech therapy, though on observation does choke quite easily, does not feel like she is aspirating and able to manage her secretions currently. Her is quite dedicated, and working multiple strategies to get her calories in, have been consistently getting around 1500 average. She has had significant weight loss so, will continue to monitor. 4. Dehydration. Patient is struggling with keeping hydration, she is receiving weekly hydration, if patient feels dizzy or worsening, given her current goals for continuing treatment, can add second hydration end of week if need be, will continue to monitor. She is quite fatigued with the appointments, and is most happy sitting at home on her couch. 5. Metastatic squamous cell carcinoma involving neck nodes with locally advanced progressing disease. Patient currently on Keytruda, tolerated lost week without any trouble, and concern sequela of her tumor progression may be of concern for her to experience benefit. They are both people of n[employer], they are Catholicism is very important to them. We did discuss in the context of immunotherapy, there is much to hope for, and can continue to weigh these benefits and burdens on a day to day or week to week basis. Has been would really like her to continue on, but recognizes the seriousness of her illness and worried about her suffering. 6. Atrial fib. Patient has had fluctuating protimes, will have home health RN check this Saturday as patient is started Levaquin. Patient already having small amount of serosanguineous drainage at tumor site, will need to monitor closely. 7. Constipation. Patient is having some difficulty, despite liquid diet, recommended add 1/4-1/2 capful of MiraLAX daily to her supplement drink. 8. Advanced care planning. Patient is continuing to struggle with her rapid decline, her disease progression, being a burden on her , and worsening quality of life. She does feel currently it is still acceptable and tolerable, counseling provided regarding weighing benefits and burdens, taking this a step at a time, did introduce the conversation regarding what she would like end-of-life, would like for her to be at home. Counseling provided regarding the continuum of care from palliative care to hospice, and will continue to support them in the space of waiting for response and the consequences of disease progression. POLST was completed, is posted on the fridge, they will talk about and complete her D POA paperwork this weekend, as well as continue with their other advanced care planning documents they need to finish. Time Spent: 75 minutes with greater than 50% of this done in counseling regarding symptom management, goals of care, continuum of supportive care, and anticipatory guidance.
== END 2020-06-15 15:31 | disposition home or self-care (01) ==
LOC: PC 15:30
PROVIDERS: ATTEND Nurse Practitioner Adult Health
DX: Z51.5 Encounter for palliative care (principal); R53.0 Neoplastic (malignant) related fatigue; T81.31XA Disruption of external operation (surgical) wound, not elsewhere classified, initial encounter; R53.1 Weakness; R13.10 Dysphagia, unspecified; R63.0 Anorexia; R63.4 Abnormal weight loss; E46 Unspecified protein-calorie malnutrition; G89.3 Neoplasm related pain (acute) (chronic); E86.0 Dehydration; I48.91 Unspecified atrial fibrillation; K59.00 Constipation, unspecified; R06.02 Shortness of breath; C77.0 Secondary and unspecified malignant neoplasm of lymph nodes of head, face and neck; Z85.828 Personal history of other malignant neoplasm of skin; D46.9 Myelodysplastic syndrome, unspecified; Z79.899 Other long term (current) drug therapy; Z79.01 Long term (current) use of anticoagulants; Z87.891 Personal history of nicotine dependence; Z95.0 Presence of cardiac pacemaker; Z66 Do not resuscitate; R32 Unspecified urinary incontinence
CPT/HCPCS: 99345

== ENCOUNTER 2020-07-01 11:50 | Outpatient (CLI) | payer MEDICARE ==
[2020-07-01 14:20] LABS: INR 8.1 (0.8-1.2)
== END 2020-07-01 23:59 | disposition home or self-care (01) ==
LOC: LAB.R 11:50
PROVIDERS: ATTEND Family Medicine
DX: I48.0 Paroxysmal atrial fibrillation (principal); Z79.01 Long term (current) use of anticoagulants
CPT/HCPCS: 85610

== ENCOUNTER 2020-07-02 19:10 | Inpatient (IN) | payer MEDICARE ==
[2020-07-02] MEDS ORDERED: SODIUM CHLORIDE 0.9% 1,000 ML IV STA ×2 (19:34)
[2020-07-02 19:55] LABS: EOSINOPHILS % (AUTO) 1.7 %; HGB - HEMOGLOBIN 11.2 g/dL (12.0-16.0); LYMPHOCYTES % (AUTO) 2.7 %; MEAN CORPUSCULAR HEMOGLOBIN 24.3 pg (27.0-31.0); MEAN CORPUSCULAR HGB CONC 30.3 g/dL (32.0-36.0); MEAN CORPUSCULAR VOLUME 80.4 fL (81.0-99.0); MEAN PLATELET VOLUME 9.7 fL (7.9-10.8); MONOCYTES % (AUTO) 5.1 %; NEUTROPHILS % (AUTO) 78.9 %; PLT - PLATELET COUNT 237 10^3/uL (130-450); RED CELL DISTRIBUTION WIDTH 23.9 % (12.0-15.0); WHITE BLOOD COUNT 34.4 x10^3/uL (4.8-10.8)
[2020-07-02 20:01] LABS: PT - PROTHROMBIN TIME 53.1 secs (9.9-12.6)
[2020-07-02 20:06] LABS: ABNORMAL LYMPHS % (MANUAL) 0 %
--- NOTE | 2020-07-02 20:08 | ED Physician Documentation ---
History of Present Illness - Stated complaint Stated Complaint: HYPOXIA - Chief complaint Chief Complaint: Resp - History obtained from History obtained from: Patient, Family - History of Present Illness Timing: Today Pain level max: 0 Pain level now: 0 - Additonal information Additional information: 84-year-old female with metastatic squamous cell carcinoma presents to the emergency department with hypoxia today. She is still undergoing chemotherapy. She is on palliative care, they are discussing transitioning to hospice. She was 70% on room air. She has difficulty swallowing, high aspiration risk. She is on chronic Levaquin for an infected left neck mass. Review of Systems Ten Systems: 10 systems reviewed and negative Constitutional: reports: Fever, Chills Nose: denies: Rhinorrhea / runny nose, Congestion GI: denies: Vomiting, Diarrhea Skin: denies: Rash Musculoskeletal: denies: Neck pain, Back pain Neurologic: denies: Headache PD PAST MEDICAL HISTORY - Past Medical History Past Medical History: Yes Cardiovascular: Atrial fibrillation Respiratory: None Neuro: None Endocrine/Autoimmune: None GI: GERD : Incontinence HEENT: Chronic hearing loss Psych: None Musculoskeletal: Osteoarthritis, Fatigue - Past Surgical History Past Surgical History: Yes General: Other Cardiovascular: Pacemaker Derm: Skin cancer surgery - Present Medications Home Medications: Ambulatory Orders Medication Instructions Recorded Confirmed Digoxin 125 mcg PO DAILY 04/02/13 06/28/20 Diltiazem HCl [Diltiazem 24Hr ER] 240 mg PO DAILY 03/20/20 06/28/20 Warfarin [Coumadin] 5 mg PO 1400 05/10/20 06/28/20 traMADol [Ultram] 50 mg PO Q8HR PRN 05/31/20 06/28/20 Levofloxacin [Levaquin] 750 mg PO DAILY #10 tablet 06/14/20 06/28/20 bisacodyL [Dulcolax] 1 tab PO DAILY 06/21/20 06/28/20 Lidocaine/Prilocain 2.5% Cream 30 gm TOP DAILY 06/23/20 06/28/20 [Emla 2.5% Cream] Morphine Sulfate [Morphine Sulf 5 mg PO .Q2 PRN 06/23/20 06/28/20 Oral (Roxanol)] - Allergies Allergies/Adverse Reactions: Allergies Allergy/AdvReac Type Severity Reaction Status Date / Time clopidogrel bisulfate * Allergy Unknown unknown Verified 07/02/20 19:25 [From Plavix] - Social History Does the pt smoke?: No Smoking Status: Never smoker Does the pt drink ETOH?: No Does the pt have substance abuse?: No - Immunizations Immunizations are current?: Yes Immunizations: TDAP >10years/unknown - POLST Patient has POLST: Yes PD ED PE NORMAL - Vitals Vital signs reviewed: Yes - General General: Alert and oriented X 3, Other (Cachectic, frail) - HEENT HEENT: Other (Dry lips and tongue) - Neck Neck: Other (Neck is bandaged) - Cardiac Cardiac: RRR - Respiratory Respiratory: No respiratory distress, Other (Diminished breath sounds bilaterally) - Abdomen Abdomen: Soft, Non tender, Non distended - Derm Derm: Warm and dry, No rash - Extremities Extremities: No edema - Neuro Neuro: Alert and oriented X 3 Results - Vitals Vitals: Vital Signs - 24 hr 07/02/20 07/02/20 07/02/20 19:22 19:25 19:53 Temperature 38.1 C H Heart Rate 101 H Respiratory 26 H 21 Rate Blood Pressure 160/84 H 167/89 H O2 Saturation 84 L 92 94 07/02/20 07/02/20 07/02/20 20:00 20:30 21:00 Temperature Heart Rate 100 94 85 Respiratory 24 22 Rate Blood Pressure 148/81 H 154/71 H O2 Saturation 95 96 100 07/02/20 21:30 Temperature 37.9 C H Heart Rate 87 Respiratory 22 Rate Blood Pressure 146/69 H O2 Saturation 98 Oxygen O2 Source Nasal cannula Oxygen Flow Rate 6 - Labs Labs: Laboratory Tests 07/02/20 07/02/20 07/02/20 19:41 19:41 19:41 WBC 34.4 H RBC 4.60 Hgb 11.2 L Hct 37.0 MCV 80.4 L MCH 24.3 L MCHC 30.3 L RDW 23.9 H Plt Count 237 MPV 9.7 Neut # (Auto) Not Reportable Lymph # (Auto) Not Reportable [place] # (Auto) Not Reportable Eos # (Auto) Not Reportable Baso # (Auto) Not Reportable Absolute Nucleated RBC Not Reportable Total Counted 100 Band Neuts % (Manual) 5 Abnorm Lymph % (Manual) 0 Metamyelocytes % 4 H Myelocytes % 1 H Nucleated RBC % Not Reportable Neutrophils # (Manual) 28.9 H Lymphocytes # (Manual) 0.7 L Monocytes # (Manual) 2.4 H Eosinophils # (Manual) 0.7 Basophils # (Manual) 0.0 Nucleated RBCs 1 Differential Comment MANUAL DIFFERENTIAL Manual Slide Review Indicated Platelet Estimate NORMAL (130-450,000) Platelet Morphology 1+ LARGE PLATELETS RBC Morph Micro Appear 2+ OVALOCYTES PT 53.1 H INR 5.1 H* APTT 46.5 H Sodium 142 Potassium 3.7 Chloride 106 Carbon Dioxide 23 Anion Gap 13.0 BUN 26 H Creatinine 0.9 Estimated GFR (MDRD) 60 L Glucose 117 H Lactic Acid Calcium 9.6 Total Bilirubin 1.3 H AST 23 ALT 18 Alkaline Phosphatase 92 Total Protein 6.2 L Albumin 3.4 Globulin 2.8 Albumin/Globulin Ratio 1.2 Lipase 24 Urine Color Urine Clarity Urine pH Ur Specific [place] Urine Protein Urine Glucose (UA) Urine Ketones Urine Occult Blood Urine Nitrite Urine Bilirubin Urine Urobilinogen Ur Leukocyte Esterase Urine RBC Urine WBC Ur Epithelial Cells Ur Squamous Epith Cells Urine Crystals Urine Bacteria Ur Microscopic Review Urine Culture Comments 07/02/20 07/02/20 19:41 20:36 WBC RBC Hgb Hct MCV MCH MCHC RDW Plt Count MPV Neut # (Auto) Lymph # (Auto) [place] # (Auto) Eos # (Auto) Baso # (Auto) Absolute Nucleated RBC Total Counted Band Neuts % (Manual) Abnorm Lymph % (Manual) Metamyelocytes % Myelocytes % Nucleated RBC % Neutrophils # (Manual) Lymphocytes # (Manual) Monocytes # (Manual) Eosinophils # (Manual) Basophils # (Manual) Nucleated RBCs Differential Comment Manual Slide Review Platelet Estimate Platelet Morphology RBC Morph Micro Appear PT INR APTT Sodium Potassium Chloride Carbon Dioxide Anion Gap BUN Creatinine Estimated GFR (MDRD) Glucose Lactic Acid 1.5 Calcium Total Bilirubin AST ALT Alkaline Phosphatase Total Protein Albumin Globulin Albumin/Globulin Ratio Lipase Urine Color YELLOW Urine Clarity CLOUDY Urine pH 5.5 Ur Specific [place] 1.025 Urine Protein TRACE Urine Glucose (UA) NEGATIVE Urine Ketones NEGATIVE Urine Occult Blood MODERATE H Urine Nitrite NEGATIVE Urine Bilirubin NEGATIVE Urine Urobilinogen 0.2 (NORMAL) Ur Leukocyte Esterase TRACE H Urine RBC TNTC H Urine WBC 11-25 H Ur Epithelial Cells FEW Renal Tubular Ur Squamous Epith Cells RARE Squamous Urine Crystals 6-10 Calcium Oxalate Urine Bacteria Few Ur Microscopic Review INDICATED Urine Culture Comments INDICATED - Rads (name of study) Chest x-ray Radiology: Prelim report reviewed, EMP read contemporaneously, See rad report (1. Patchy bibasilar atelectasis versus consolidation. 2. ASCVD. ) PD MEDICAL DECISION MAKING - ED course Complexity details: reviewed old records, reviewed results, re-evaluated patient, considered differential, d/w patient, d/w media sales consultant ED course: 84-year-old female presents to the emergency department with bilateral pneumonia. She is already on Levaquin, we will add Zosyn for likely aspiration. Given IV fluids. Blood cultures drawn. She also appears malnourished and d ehydrated. Has a UTI as well. She is hypoxic down to the 80s, maintained on 4 L nasal oxygen here. Discussed the case with Dr. Dean, hospitalist who accepts This document was made in part using voice recognition software. While efforts are made to proofread this document, sound alike and grammatical errors may occur. - Sepsis Event Current Stage of Sepsis: Sepsis Possible source of Sepsis: Pulmonary, Genitourinary Mental/Cognitive Status: Alert/Oriented X3 Reason for not giving 30ml/kg crystalloid fluids: Fluid overload potential Capillary refill: Less than 2 seconds Peripheral Pulse Strength: 3+ Normal Peripheral Pulse Location: Radial Bedside ultrasound performed: No Departure - Departure Disposition: 66 [facility] DC/Xfer Clinical Impression: Hypoxia, Dehydration, Supratherapeutic INR Pneumonia Qualifiers: Pneumonia type: due to unspecified organism Laterality: bilateral Lung location: unspecified part of lung Qualified Code(s): J18.9 - Pneumonia, un specified organism UTI (urinary tract infection) Qualifiers: Urinary tract infection type: acute cystitis Hematuria presence: with hematuria Qualified Code(s): N30.01 - Acute cystitis with hematuria Sepsis Qualifiers: Sepsis type: sepsis due to unspecified organism Sepsis acute organ dysfunction status: with acute organ dysfunction Severe sepsis acute organ dysfunction type: unspecified Severe sepsis shock status: without septic shock Qualified Code(s): A41.9 - Sepsis, unspecified organism; R65.20 - Severe sepsis without septic shock Condition: Stable
[2020-07-02 20:09] LABS: ALBUMIN 3.4 g/dL (3.2-5.5); BILIRUBIN,TOTAL 1.3 mg/dL (0.2-1.0); CALCIUM 9.6 mg/dL (8.5-10.3); CREATININE 0.9 mg/dL (0.4-1.0); TOTAL PROTEIN 6.2 g/dL (6.7-8.2)
[2020-07-02 20:10] LABS: ALBUMIN/GLOBULIN RATIO 1.2 (1.0-2.2)
[2020-07-02 20:13] LABS: PARTIAL THROMBOPLASTIN TIME 46.5 secs (24.9-33.3)
[2020-07-02 20:15] LABS: INR 5.1 (0.8-1.2)
[2020-07-02 20:24] LABS: BAND NEUTROPHILS % (MANUAL) 5 %; EOSINOPHILS # (MANUAL) 0.7 10^3/uL (0-0.7); LYMPHOCYTES # (MANUAL) 0.7 10^3/uL (1.5-3.5); LYMPHOCYTES % (MANUAL) 2 %; METAMYELOCYTES % (MANUAL) 4 %; MONOCYTES # (MANUAL) 2.4 10^3/uL (0.0-1.0); MYELOCYTES % (MANUAL) 1 %
[2020-07-02 20:27] LABS: DIFFERENTIAL COMMENT MANUAL DIFFERENTIAL; PLATELET ESTIMATE, MANUAL NORMAL (130-450,000) (NORMAL); PLATELET MORPHOLOGY 1+ LARGE PLATELETS (NORMAL)
--- NOTE | 2020-07-02 20:30 | XRAY Report ---
PROCEDURE: Chest 1 View X-Ray INDICATIONS: hypoxia TECHNIQUE: One view of the chest was acquired. COMPARISON: 07/23/2018 FINDINGS: Surgical changes and devices: Pacemaker. Right neck clips. Lungs and pleura: No pleural effusions or pneumothorax. Patchy bibasilar atelectasis versus consolid ation. Mediastinum: Mediastinal contours appear normal. Heart size is normal. Bones and chest wall: No suspicious bony lesions. Overlying soft tissues appear unremarkable. Ferreira tid region calcifications bilaterally. IMPRESSION: 1. Patchy bibasilar atelectasis versus consolidation. 2. ASCVD. Reviewed by: Yobani Mendosa MD on 07/02/2020 8:28 PM PDT Approved by: Yobani Mendosa MD on 07/02/2020 8:28 PM PDT Station ID: [id number]
[2020-07-02 20:44] LABS: BILIRUBIN,URINE NEGATIVE (NEGATIVE); GLUCOSE, URINE (UA) NEGATIVE (NEGATIVE); KETONES,URINE (UA) NEGATIVE (NEGATIVE); LEUKOCYTE ESTERASE, URINE TRACE (NEGATIVE); NITRITE,URINE NEGATIVE (NEGATIVE); OCCULT BLOOD,URINE MODERATE (NEGATIVE); PH,URINE 5.5 PH (5.0-7.5); PROTEIN,URINE TRACE mg/dL (NEGATIVE); UROBILINOGEN,URINE 0.2 (NORMAL) E.U./dL (NORMAL)
[2020-07-02] MEDS ORDERED: PIPERACILLIN/TAZOBACTAM 4.5 GM in SODIUM CHLORIDE 0.9% MINIBAG 100 ML IV STA (20:50)
[2020-07-02 21:04] LABS: CLARITY,URINE CLOUDY (CLEAR)
[2020-07-02 21:05] LABS: BACTERIA,URINE Few /HPF (None Seen); RBC,URINE TNTC /HPF (0-5); SQUAMOUS EPITHELIAL CELL,UR RARE Squamous (<= Few)
[2020-07-02 21:06] LABS: CRYSTALS,URINE 6-10 Calcium Oxalate /LPF
--- NOTE | 2020-07-02 22:38 | HISTORY & PHYSICAL EXAMINATION ---
Chief Complaint - Chief Complaint Chief Complaint: not feeling well, hypoxia History of Present Illness - Admitted From Admitted From:: [facility] ED - History Obtained From Records Reviewed: yes History obtained from: patient and ED physician - History of Present Illness HPI Comment/Other: Patient is an 84-year-old female with history of metastatic squamous cell carcinoma and myeloproliferative disorder. Metastasis is to the submandibular a mickie. She currently has left neck mass and wound in the area with purulent drainage. She has been on Levaquin chronically for the wound. She sees Dr. Adalberto Marrero at the [facility]. The cancer appears to have progressed despite treatment which has included surgery, radiation therapy and chemotherapy. She is currently on chemo therapy with Keytruda. ENT and radiation oncology have said that the have no more therapy to offer. The patient has been seen by palliative (Barbara Velazquez). She presented to the ED today because she was not feeling well. Her is very involved in her care and brought her to the emergency room at her request. In the ED she was found to be hypoxic with an oxygen saturation of 70% on room air. She required 6 L of oxygen via nasal cannula to maintain her oxygen saturation is in the 90s. She does not use oxygen at home. She has difficulty swallowing as a result of her cancer and is at a high risk for aspiration. Work-up in the ED included a chest x-ray which showed patchy bibasilar atelectasis versus consolidation. She had a white blood cell count of 34. 5 days ago it was 44. She is very frail and cachectic appearing. She denied chest pain, abdominal pain, nausea or vomiting. She is being admitted for further treatment. History - Past Medical History Cardiovascular: reports: Atrial fibrillation Respiratory: reports: None Neuro: reports: None Endocrine/Autoimmune: reports: None GI: reports: GERD : reports: Incontinence HEENT: reports: Chronic hearing loss Psych: reports: None Musculoskeletal: reports: Osteoarthritis, Fatigue MRSA Hx?: No - Past Surgical History General: reports: Other Cardiovascular: reports: Pacemaker Derm: reports: Skin cancer surgery - Family & Social History Family History: Mother: , Alcoholism, Father: , Cancer Family History Comment/Other: She reports her mother from cancer at a young age. She was a smoker. Social History Notes: She has been living on [facility] with her since 1987. 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 She worked in [place] in [facility]. She smoked for 14 years from the age of [age]. She drinks approximately 1 alcoholic beverage every 4 to 5 days. - Substance History Use: Uses substance without health or social issues: Tobacco (hx of smoking) - POLST Patient has POLST: Yes POLST Status: DNR Meds/Allgy - Home Medications Home Medications: Ambulatory Orders Medication Instructions Recorded Confirmed Digoxin 125 mcg PO DAILY 04/02/13 06/28/20 Diltiazem HCl [Diltiazem 24Hr ER] 240 mg PO DAILY 03/20/20 06/28/20 Warfarin [Coumadin] 5 mg PO 1400 05/10/20 06/28/20 traMADol [Ultram] 50 mg PO Q8HR PRN 05/31/20 06/28/20 Levofloxacin [Levaquin] 750 mg PO DAILY #10 tablet 06/14/20 06/28/20 bisacodyL [Dulcolax] 1 tab PO DAILY 06/21/20 06/28/20 Lidocaine/Prilocain 2.5% Cream 30 gm TOP DAILY 06/23/20 06/28/20 [Emla 2.5% Cream] Morphine Sulfate [Morphine Sulf 5 mg PO .Q2 PRN 06/23/20 06/28/20 Oral (Roxanol)] - Allergies Allergies/Adverse Reactions: Allergies Allergy/AdvReac Type Severity Reaction Status Date / Time clopidogrel bisulfate * Allergy Unknown unknown Verified 07/02/20 19:25 [From Plavix] Review of Systems - Constitutional Constitutional: reports: Fever, Weakness, Other (frail and cachexic) - Eyes Eyes: denies: Pain - Ears, Nose & Throat Ears, Nose & Throat: reports: Hearing loss (chronic) - Cardiovascular Cariovascular: reports: Irregular heart rate, Palpitations. denies: Chest pain, Edema, Lightheadedness, Syncope - Respiratory Respiratory: reports: Cough, Wheezing, SOB at rest. denies: Sputum production, SOB with exertion - Gastrointestinal Gastrointestinal: denies: Abdominal pain, Abdominal distention, Constipation, Nausea, Vomiting - Genitourinary Genitourinary: denies: Dysuria, Frequency, Urgency, Hematuria - Musculoskeletal Musculoskeletal: denies: Muscle pain - Integumentary Integumentary: reports: Lesions (Left neck mass. Submandibular wound. With purulent drainage.). denies: Rash - Neurological Neurological: reports: General weakness - Psychiatric Psychiatric: reports: Depression - Hematologic/Lymphatic Hematologic/Lymphatic: reports: Anemia, Lymphadenopathy, Bleeding tendencies. denies: Bruising Prior Level of Functionality: Patient is very frail and cachectic. She gets around the house using a walker. Her is very involved in her care. She also has home health 5 times a week. Exam - Vital Signs Vital Signs: Vital Signs x48h Temp Pulse Resp BP Pulse Ox 07/02/20 21:30 37.9 C H 87 22 146/69 H 98 07/02/20 21:00 85 22 154/71 H 100 07/02/20 20:30 94 24 96 07/02/20 20:00 100 148/81 H 95 07/02/20 19:53 101 H 21 167/89 H 94 07/02/20 19:25 92 07/02/20 19:22 38.1 C H 26 H 160/84 H 84 L - Physical Exam General Appearance: positive: No acute distress, Alert Eyes Bilateral: positive: PERRL, EOMI ENT: positive: Other (Submandibular wound with purulent drainage.) Neck: positive: Other (Left neck mass) Respiratory: positive: Rales (Bilateral lower lung bases) Cardiovascular: positive: Irregularly irregular Abdomen: positive: Non-tender, Nml bowel sounds, No distention. negative: Guarding, Rebound Back: positive: Nml inspection Skin: positive: Warm, Dry Extremities: positive: Non-tender, No pedal edema Neurologic/Psychiatric: positive: Oriented x3 Conclusion/Plan - Problem List (1) Pneumonia Conclusion/Plan: Likely due to aspiration. WBC was 34. Patient was started on Zosyn. We will continue. Patient is on 6 L of oxygen via nasal cannula with O2Sat between 94 and 98% IV hydration with normal saline at 100 mils per hour. Blood cultures pending Patient made n.p.o. According to Barbara Velazquez's consult note of June 23, 2020, a feeding tube had been proposed but the patient declined. Qualifiers: Pneumonia type: due to unspecified organism Laterality: bilateral Lung location: unspecified part of lung Qualified Code(s): J18.9 - Pneumonia, unspecified organism (2) UTI (urinary tract infection) Conclusion/Plan: On Zosyn Blood and urine cultures pending. 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 Adalberto Marrero at the [facility]. Last Visit was May 31, 2020. Her disease has progressed significantly since then, despite being on Keytruda Patient has been seen by Dr Chapincito Castellon (radiation oncology) and Dr Pantoja (ENT at [facility]) in the past. The wound site at her neck is believed to be progression of the squamous cell carcinoma. It has a purulent drainage. The patient has been on Keflex, clindamycin and Levaquin at different times for the wound. She also has a home health nurse who visits weekly and changes the dressing. The radiation oncologist and ENT physicians have concluded that there is no further treatment they can offer. Patient has been seen by Barbara Velazquez. The topic of hospice care was brought up at her visit on June 23, 2020. The patient wanted to discuss with her family. Will consult Barbara Velazquez to see the patient on Saturday, July 04, 2020 Will order IV pain medications. (4) Atrial fibrillation Conclusion/Plan: Patient is on digoxin 125mcg daily and diltiazem ER 120mg daily. We will continue Patient also takes Coumadin. Her INR is currently 5.2. This is likely as a result of her recent treatment with Levaquin. We will hold Coumadin for now and monitor INR daily. (5) Supratherapeutic INR Conclusion/Plan: Hold Coumadin. Check INR daily. If any sign of bleeding, will administer vitamin K. (6) Myeloproliferative disorder Conclusion/Plan: Patient sees Dr. Adalberto Marrero at the [facility] She had been on Jakafi from 01/2017 to 04/2020. Current WBC is 34. WBC was 44 on June 27, 2020 This could be due to a combination of her mild proliferative disease and wound infection at the metastatic site on her jaw - Lab Results Fish Bones: 07/02/20 19:41 07/02/20 19:41 Core Measures - Anticipated LOS I expect patient to be DC'd or transferred within 96 hours.: Yes - DVT/VTE - Prophylaxis VTE/DVT Device ordered at admit?: Yes VTE/DVT Prophylaxis med ordered at admit?: No
[2020-07-02] MEDS: SODIUM CHLORIDE 0.9% 1,000 ML IV SCH (23:07)
[2020-07-02] MEDS: PIPERACILLIN/TAZOBACTAM 3.375 GM in SODIUM CHLORIDE 0.9% MINIBAG 100 ML IV SCH (23:13)
[2020-07-03 05:37] LABS: BASOPHILS % (AUTO) 0.8 %; HGB - HEMOGLOBIN 9.1 g/dL (12.0-16.0); LYMPHOCYTES % (AUTO) 2.7 %; MEAN CORPUSCULAR HEMOGLOBIN 23.9 pg (27.0-31.0); MEAN CORPUSCULAR HGB CONC 29.6 g/dL (32.0-36.0); MEAN CORPUSCULAR VOLUME 80.8 fL (81.0-99.0); MEAN PLATELET VOLUME 10.3 fL (7.9-10.8); MONOCYTES % (AUTO) 5.1 %; NEUTROPHILS % (AUTO) 78.5 %; PLT - PLATELET COUNT 186 10^3/uL (130-450); RED CELL DISTRIBUTION WIDTH 23.4 % (12.0-15.0); WHITE BLOOD COUNT 22.5 x10^3/uL (4.8-10.8)
[2020-07-03 05:46] LABS: CALCIUM 8.5 mg/dL (8.5-10.3); CREATININE 0.8 mg/dL (0.4-1.0)
[2020-07-03 05:48] LABS: ABNORMAL LYMPHS % (MANUAL) 0 %
[2020-07-03 05:49] LABS: PT - PROTHROMBIN TIME 57.4 secs (9.9-12.6)
[2020-07-03 05:59] LABS: INR 5.6 (0.8-1.2)
[2020-07-03] MEDS: PIPERACILLIN/TAZOBACTAM 3.375 GM in SODIUM CHLORIDE 0.9% MINIBAG 100 ML IV SCH ×3 (06:01→22:16)
[2020-07-03] MEDS: SODIUM CHLORIDE FLUSH 0.9% 10 ML SYRINGE IVP SCH ×3 (06:01→16:32)
[2020-07-03] MEDS: SODIUM CHLORIDE FLUSH 0.9% 10 ML SYRINGE IVP PRN (06:03)
[2020-07-03] MEDS: PANTOPRAZOLE 40 MG VIAL IVP SCH (06:03)
[2020-07-03 06:07] LABS: BAND NEUTROPHILS % (MANUAL) 2 %; BASOPHILS # (MANUAL) 0.5 10^3/uL (0-0.1); BASOPHILS % (MANUAL) 2 %; LYMPHOCYTES # (MANUAL) 0.7 10^3/uL (1.5-3.5); LYMPHOCYTES % (MANUAL) 3 %; METAMYELOCYTES % (MANUAL) 2 %; MONOCYTES # (MANUAL) 0.5 10^3/uL (0.0-1.0); MYELOCYTES % (MANUAL) 4 %
[2020-07-03 06:08] LABS: DIFFERENTIAL COMMENT MANUAL DIFFERENTIAL; PLATELET ESTIMATE, MANUAL NORMAL (130-450,000) (NORMAL); PLATELET MORPHOLOGY NORMAL APPEARANCE (NORMAL)
[2020-07-03] MEDS ORDERED: PHYTONADIONE 10 MG/ML AMP PO ONE (07:17)
[2020-07-03] MEDS ORDERED: CHERRY SYRUP 10 ML UDC PO ONE (07:17)
[2020-07-03] MEDS: SODIUM CHLORIDE 0.9% 1,000 ML IV SCH ×2 (09:20→22:16)
[2020-07-03] MEDS ORDERED: PHYTONADIONE INJ (ADULT) 5 MG in SODIUM CHLORIDE 0.9% 50 ML IV ONE (10:51)
--- NOTE | 2020-07-03 15:58 | PROVIDER PROGRESS NOTE ---
Assessment/Plan - Problem List (1) Pneumonia Assessment/Plan: Thi is a presumed aspiration pneumonia because of the extensive abnormality of her neck and throat, she chokes with liquids which was witnessed. COVID test is pending, continue with isolation until it returns neg Continue with IV antibiotic Zosyn. We are limited in ordering any oral expectorant since she is n.p.o. except ice chips and sips of water. Continue with supplemental oxygen Continue with IV hydration (2) UTI (urinary tract infection) Qualifiers: Urinary tract infection type: acute cystitis Hematuria presence: with hematuria Qualified Code(s): N30.01 - Acute cystitis with hematuria Assessment/Plan: She also had abnormal urinalysis showing UTI. Zosyn should also cover bacteriuria. Await urine culture and sensitivity results (3) Squamous cell carcinoma of skin of other parts of face Assessment/Plan: There is drainage from the upper part of the neck and basal part of the jaw. We will order wound consult or she may need surgery consult from oral maxillofacial surgery. Continue with topical care. She denies any pain in this area, is probably did not denervated from her extensive treatments. (4) Atrial fibrillation Assessment/Plan: Heart rate is well controlled. Her INR was excessive. Oral vitamin K was tried but she choked on the first quarter of the dose. We will need to replace with IV vitamin K. Continue telemetry. (5) Elevated INR Assessment/Plan: As above in #4 (6) Myeloproliferative disorder Assessment/Plan: She has a chronic white blood cell elevation. Follow CBC daily - Current Meds Current Meds: Current Medications Generic Name Dose Route Start Last Admin Trade Name Adamq PRN Reason Stop Dose Admin Sodium Chloride 1,000 mls @ 100 mls/hr 07/02/20 23:00 07/03/20 09:20 Normal Saline 0.9% IV 100 mls/hr .Q10H JADA Administration Piperacillin Sod/Tazobactam 100 mls @ 25 mls/hr 07/03/20 14:00 07/03/20 14:06 Sod 3.375 gm/ Sodium Chloride IV 25 mls/hr Q8H JADA Administration Pantoprazole Sodium 40 mg 07/03/20 07:00 07/03/20 06:03 Protonix IVP 40 mg QDAC JADA Administration Sodium Chloride 10 ml 07/02/20 22:26 07/03/20 06:03 Normal Saline Flush 0.9% IVP 10 ml PRN PRN Administration NEEDED PER PROVIDER ORDERS Sodium Chloride 10 ml 07/03/20 01:00 07/03/20 09:21 Normal Saline Flush 0.9% IVP Not Given 0100,0900,1700 JADA - Lab Result Fish Bone Diagrams: 07/03/20 05:25 07/03/20 05:25 Subjective - Subjective Patient Reports: No Complaints Objective Vital Signs: Vital Signs - 24 hr 07/02/20 07/02/20 07/02/20 19:22 19:25 19:53 Temperature 38.1 C H Heart Rate 101 H Heart Rate [ Radial] Respiratory 26 H 21 Rate Blood Pressure 160/84 H 167/89 H Blood Pressure [Left Brachial artery] Blood Pressure [Right Brachial artery] O2 Saturation 84 L 92 94 07/02/20 07/02/20 07/02/20 20:00 20:30 21:00 Temperature Heart Rate 100 94 85 Heart Rate [ Radial] Respiratory 24 22 Rate Blood Pressure 148/81 H 154/71 H Blood Pressure [Left Brachial artery] Blood Pressure [Right Brachial artery] O2 Saturation 95 96 100 07/02/20 07/02/20 07/02/20 21:30 22:46 23:21 Temperature 37.9 C H 36.7 C Heart Rate 87 84 Heart Rate [ 81 Radial] Respiratory 22 24 20 Rate Blood Pressure 146/69 H 142/73 H Blood Pressure 148/67 H [Left Brachial artery] Blood Pressure [Right Brachial artery] O2 Saturation 98 96 96 07/02/20 07/03/20 07/03/20 23:50 05:26 08:47 Temperature 36.7 C 36.4 C L 36.4 C L Heart Rate 96 Heart Rate [ 77 76 Radial] Respiratory 81 H 16 20 Rate Blood Pressure Blood Pressure 151/71 H [Left Brachial artery] Blood Pressure 161/73 H [Right Brachial artery] O2 Saturation 20 L 96 95 07/03/20 12:57 Temperature 36.8 C Heart Rate Heart Rate [ 77 Radial] Respiratory 20 Rate Blood Pressure Blood Pressure 159/70 H [Left Brachial artery] Blood Pressure [Right Brachial artery] O2 Saturation 94 Oxygen O2 Source Nasal cannula Oxygen Flow Rate 6 I&O (Last 24 Hrs): Intake and Output Totals x24h 07/01/20 07/02/2007/03/20 23:59 23:59 23:59 Intake Total 1512 1122.167 Output Total 750 Balance 1512 372.167 HEENT: Other (Extensive lower jaw and neck abnormality with bandage over the lower jaw and neck with some drainage) Neck: Other ([place]a jose d) Neuro: Alert, Other (Motor exam grossly intact of the extremities) Cardiovascular: Regular rate Respiratory: No respiratory distress, Other Abdomen: Soft (Requiring O2 by nasal cannula.) Extremities: No edema - Results Results: Laboratory Results WBC 22.5 x10^3/uL (4.8-10.8) H 07/03/20 05:25 RBC 3.80 10^6/uL (4.20-5.40) L 07/03/20 05:25 Hgb 9.1 g/dL (12.0-16.0) L 07/03/20 05:25 Hct 30.7 % (37.0-47.0) L 07/03/20 05:25 MCV 80.8 fL (81.0-99.0) L 07/03/20 05:25 MCH 23.9 pg (27.0-31.0) L 07/03/20 05:25 MCHC 29.6 g/dL (32.0-36.0) L 07/03/20 05:25 RDW 23.4 % (12.0-15.0) H 07/03/20 05:25 Plt Count 186 10^3/uL (130-450) 07/03/20 05:25 MPV 10.3 fL (7.9-10.8) 07/03/20 05:25 Neut # (Auto) Not Reportable 07/03/20 05:25 Lymph # (Auto) Not Reportable 07/03/20 05:25 [place] # (Auto) Not Reportable 07/03/20 05:25 Eos # (Auto) Not Reportable 07/03/20 05:25 Baso # (Auto) Not Reportable 07/03/20 05:25 Absolute Nucleated RBC Not Reportable 07/03/20 05:25 Total Counted 100 07/03/20 05:25 Band Neuts % (Manual) 2 % (0-10) 07/03/20 05:25 Abnorm Lymph % (Manual) 0 % 08/16/20 05:25 Metamyelocytes % 2 % (-0) H 07/03/20 05:25 Myelocytes % 4 % (-0) H 07/03/20 05:25 Nucleated RBC % Not Reportable 07/03/20 05:25 Neutrophils # (Manual) 19.6 10^3/uL (1.5-6.6) H 07/03/20 05:25 Lymphocytes # (Manual) 0.7 10^3/uL (1.5-3.5) L 07/03/20 05:25 Monocytes # (Manual) 0.5 10^3/uL (0.0-1.0) 07/03/20 05:25 Eosinophils # (Manual) 0.0 10^3/uL (0-0.7) 07/03/20 05:25 Basophils # (Manual) 0.5 10^3/uL (0-0.1) H 07/03/20 05:25 Nucleated RBCs 1 % 07/02/20 19:41 Differential Comment MANUAL DIFFERENTIAL 07/03/20 05:25 Manual Slide Review Indicated 07/02/20 19:41 WBC Morphology NORMAL APPEARANCE (NORMAL) 07/03/20 05:25 Platelet Estimate NORMAL (130-450,000) (NORMAL) 07/03/20 05:25 Platelet Morphology NORMAL APPEARANCE (NORMAL) 07/03/20 05:25 RBC Morph Micro Appear 2+ ANISOCYTOSIS (NORMAL) 2+ OVALOCYTES (NORMAL) 07/03/20 05:25 RBC Morph Micro Appear 2+ ANISOCYTOSIS (NORMAL) 2+ OVALOCYTES (NORMAL) 07/03/20 05:25 PT 57.4 secs (9.9-12.6) H 07/03/20 05:25 INR 5.6 (0.8-1.2) H* 07/03/20 05:25 APTT 46.5 secs (24.9-33.3) H 07/02/20 19:41 Sodium 141 mmol/L (135-145) 07/03/20 05:25 Potassium 3.7 mmol/L (3.5-5.0) 07/03/20 05:25 Chloride 112 mmol/L (101-111) H 07/03/20 05:25 Carbon Dioxide 23 mmol/L (21-32) 07/03/20 05:25 Anion Gap 6.0 (6-13) 07/03/20 05:25 BUN 21 mg/dL (6-20) H 07/03/20 05:25 Creatinine 0.8 mg/dL (0.4-1.0) 07/03/20 05:25 Estimated GFR (MDRD) 68 (>89) L 07/03/20 05:25 Glucose 114 mg/dL (70-100) H 07/03/20 05:25 Lactic Acid 1.5 mmol/L (0.5-2.2) 07/02/20 19:41 Calcium 8.5 mg/dL (8.5-10.3) 07/03/20 05:25 Total Bilirubin 1.3 mg/dL (0.2-1.0) H 07/02/20 19:41 AST 23 IU/L (10-42) 07/02/20 19:41 ALT 18 IU/L (10-60) 07/02/20 19:41 Alkaline Phosphatase 92 IU/L (42-121) 07/02/20 19:41 Total Protein 6.2 g/dL (6.7-8.2) L 07/02/20 19:41 Albumin 3.4 g/dL (3.2-5.5) 07/02/20 19:41 Globulin 2.8 g/dL (2.1-4.2) 07/02/20 19:41 Albumin/Globulin Ratio 1.2 (1.0-2.2) 07/02/20 19:41 Lipase 24 U/L (22-51) 07/02/20 19:41 Urine Color YELLOW 07/02/20 20:36 Urine Clarity CLOUDY (CLEAR) 07/02/20 20:36 Urine pH 5.5 PH (5.0-7.5) 07/02/20 20:36 Ur Specific [place] 1.025 (1.002-1.030) 07/02/20 20:36 Urine Protein TRACE mg/dL (NEGATIVE) 07/02/20 20:36 Urine Glucose (UA) NEGATIVE mg/dL (NEGATIVE) 07/02/20 20:36 Urine Ketones NEGATIVE mg/dL (NEGATIVE) 07/02/20 20:36 Urine Occult Blood MODERATE (NEGATIVE) H 07/02/20 20:36 Urine Nitrite NEGATIVE (NEGATIVE) 07/02/20 20:36 Urine Bilirubin NEGATIVE (NEGATIVE) 07/02/20 20:36 Urine Urobilinogen 0.2 (NORMAL) E.U./dL (NORMAL) 07/02/20 20:36 Ur Leukocyte Esterase TRACE (NEGATIVE) H 07/02/20 20:36 Urine RBC TNTC /HPF (0-5) H 07/02/20 20:36 Urine WBC 11-25 /HPF (0-5) H 07/02/20 20:36 Ur Epithelial Cells RARE Transitional /HPF (<= Few) FEW Renal Tubular /HPF (<= Few) 07/02/20 20:36 Ur Epithelial Cells RARE Transitional /HPF (<= Few) FEW Renal Tubular /HPF (<= Few) 07/02/20 20:36 Ur Squamous Epith Cells RARE Squamous (<= Few) 07/02/20 20:36 Urine Crystals 6-10 Calcium Oxalate /LPF 07/02/20 20:36 Urine Bacteria Few /HPF (None Seen) 07/02/20 20:36 Ur Microscopic Review INDICATED 07/02/20 20:36 Urine Culture Comments INDICATED 07/02/20 20:36 - Procedures Procedures: Procedures PACKED CELL TRANSFUSION (01/16/14) Sepsis Event Note (H) - Evaluation Possible source of Sepsis: positive: Pulmonary, Genitourinary
[2020-07-03] MEDS ORDERED: PETROLATUM WHITE 5 GM PACKET TOP PRN (19:55)
[2020-07-04] MEDS: SODIUM CHLORIDE FLUSH 0.9% 10 ML SYRINGE IVP SCH ×3 (00:15→22:01)
[2020-07-04 06:00] LABS: BASOPHILS # (AUTO) 0.2 10^3/uL (0.0-0.1); BASOPHILS % (AUTO) 0.9 %; EOSINOPHILS # (AUTO) 0.6 10^3/uL (0.0-0.7); EOSINOPHILS % (AUTO) 2.5 %; HGB - HEMOGLOBIN 9.4 g/dL (12.0-16.0); LYMPHOCYTES # (AUTO) 0.9 10^3/uL (1.5-3.5); LYMPHOCYTES % (AUTO) 3.6 %; MEAN CORPUSCULAR HEMOGLOBIN 23.4 pg (27.0-31.0); MEAN CORPUSCULAR HGB CONC 28.8 g/dL (32.0-36.0); MEAN CORPUSCULAR VOLUME 81.3 fL (81.0-99.0); MEAN PLATELET VOLUME 9.4 fL (7.9-10.8); MONOCYTES # (AUTO) 1.3 10^3/uL (0.0-1.0); MONOCYTES % (AUTO) 5.1 %; NEUTROPHILS % (AUTO) 77.1 %; PLT - PLATELET COUNT 196 10^3/uL (130-450); RED BLOOD COUNT 4.01 10^6/uL (4.20-5.40); RED CELL DISTRIBUTION WIDTH 23.6 % (12.0-15.0); WHITE BLOOD COUNT 24.6 x10^3/uL (4.8-10.8)
[2020-07-04 06:04] LABS: INR 1.5 (0.8-1.2); PT - PROTHROMBIN TIME 17.1 secs (9.9-12.6)
[2020-07-04 06:08] LABS: CALCIUM 8.2 mg/dL (8.5-10.3); CREATININE 0.8 mg/dL (0.4-1.0)
[2020-07-04 06:27] LABS: PLATELET ESTIMATE, MANUAL NORMAL (130-450,000) (NORMAL); PLATELET MORPHOLOGY NORMAL APPEARANCE (NORMAL)
[2020-07-04] MEDS: POTASSIUM CHLOR 10 MEQ/100 ML 10 MEQ/100 ML BAG IV SCH ×4 (06:55→10:10)
[2020-07-04] MEDS: PIPERACILLIN/TAZOBACTAM 3.375 GM in SODIUM CHLORIDE 0.9% MINIBAG 100 ML IV SCH ×3 (06:55→22:00)
[2020-07-04] MEDS: PANTOPRAZOLE 40 MG VIAL IVP SCH (06:56)
[2020-07-04] MEDS: SODIUM CHLORIDE 0.9% 1,000 ML IV SCH ×2 (07:48→17:29)
--- NOTE | 2020-07-04 10:42 | PROVIDER PROGRESS NOTE ---
Assessment/Plan - Problem List (1) Pneumonia Assessment/Plan: She is still coughing, partly from choking when drinking liquids. Cannot use Mucinex for expectoration, difficult to swallow. She still has need for supplemental oxygen. Unfortunately, she does not have a chronic diagnosis that would make her qualify for a new home oxygen order. Continue with empiric IV antibiotics. (2) UTI (urinary tract infection) Qualifiers: Urinary tract infection type: acute cystitis Hematuria presence: with hematuria Qualified Code(s): N30.01 - Acute cystitis with hematuria Assessment/Plan: The urinalysis was abnormal at admission. Continue with empiric IV antibiotic. Await urine culture and sensitivities. (3) Squamous cell carcinoma of skin of other parts of face Assessment/Plan: Patient still has oozing from the upper portion of the wound where the neck meets the jaw. Wound consult has been ordered. There is no [facility] wound staff here until Saturday (today is Saturday). (4) Atrial fibrillation Assessment/Plan: Rate is controlled on present med (5) Elevated INR Assessment/Plan: High INR was corrected with iv vit K. Resume coumadin, INR target 2-3 (6) Myeloproliferative disorder Assessment/Plan: As per Hx, separate malignancy from her squamous cell CA. - Current Meds Current Meds: Current Medications Generic Name Dose Route Start Last Admin Trade Name Freq PRN Reason Stop Dose Admin Sodium Chloride 1,000 mls @ 100 mls/hr 07/02/20 23:00 07/04/20 07:48 Normal Saline 0.9% IV 100 mls/hr .Q10H JADA Administration Piperacillin Sod/Tazobactam 100 mls @ 25 mls/hr 07/03/20 14:00 07/04/20 06:55 Sod 3.375 gm/ Sodium Chloride IV 25 mls/hr Q8H JADA Administration Potassium Chloride 10 meq in 100 mls @ 100 mls/hr 07/04/20 07:00 07/04/20 10:10 Potassium Chloride IV 07/04/20 10:59 100 mls/hr Q1H JADA Administration Pantoprazole Sodium 40 mg 07/03/20 07:00 07/04/20 06:56 Protonix IVP 40 mg QDAC JADA Administration Petrolatum 1 applic 07/03/20 19:55 07/03/20 22:17 Vaseline TOP 1 applic PRN PRN Administration Dry Lips Sodium Chloride 10 ml 07/02/20 22:26 07/03/20 06:03 Normal Saline Flush 0.9% IVP 10 ml PRN PRN Administration NEEDED PER PROVIDER ORDERS Sodium Chloride 10 ml 07/03/20 01:00 07/04/20 10:11 Normal Saline Flush 0.9% IVP Not Given 0100,0900,1700 JADA - Lab Result Fish Bone Diagrams: 07/06/20 05:25 07/06/20 05:25 Subjective - Subjective Patient Reports: Resting Comfortably, Other (Sleeping with HOB elevated and wearing O2 per n.c.) Objective Vital Signs: Vital Signs - 24 hr 07/03/20 07/03/20 07/03/20 12:57 17:00 21:00 Temperature 36.8 C 36.5 C 37.1 C Heart Rate [ 77 75 78 Radial] Respiratory 20 18 20 Rate Blood Pressure 159/70 H 159/68 H 166/75 H [Left Brachial artery] O2 Saturation 94 96 96 07/03/20 07/04/20 07/04/20 23:51 04:34 07:19 Temperature 36.9 C 36.7 C 36.6 C Heart Rate [ 80 81 79 Radial] Respiratory 17 17 18 Rate Blood Pressure 162/71 H 177/76 H 179/73 H [Left Brachial artery] O2 Saturation 92 96 97 Oxygen O2 Source Nasal cannula Oxygen Flow Rate 6 I&O (Last 24 Hrs): Intake and Output Totals x24h 07/02/20 07/03/20 07/04/20 23:59 23:59 23:59 Intake Total 1512 2222.167 1343.333 Output Total 1250 200 Balance 1512 767.223 7883.333 General: Other (Sleeping) HEENT: Mucous membr. moist/pink Neck: Other (Entirely covered anyteriorly in a bandage) Neuro: Other (Sleeping) Cardiovascular: Regular rate Respiratory: No respiratory distress, Breath sounds nml (anteriorly) Abdomen: Soft Extremities: No edema, Other (Pale) - Results Results: Laboratory Results WBC 24.6 x10^3/uL (4.8-10.8) H 07/04/20 05:45 RBC 4.01 10^6/uL (4.20-5.40) L 07/04/20 05:45 Hgb 9.4 g/dL (12.0-16.0) L 07/04/20 05:45 Hct 32.6 % (37.0-47.0) L 07/04/20 05:45 MCV 81.3 fL (81.0-99.0) 07/04/20 05:45 MCH 23.4 pg (27.0-31.0) L 07/04/20 05:45 MCHC 28.8 g/dL (32.0-36.0) L 07/04/20 05:45 RDW 23.6 % (12.0-15.0) H 07/04/20 05:45 Plt Count 196 10^3/uL (130-450) 07/04/20 05:45 MPV 9.4 fL (7.9-10.8) 07/04/20 05:45 Neut # (Auto) 19.0 10^3/uL (1.5-6.6) H 07/04/20 05:45 Lymph # (Auto) 0.9 10^3/uL (1.5-3.5) L 07/04/20 05:45 [place] # (Auto) 1.3 10^3/uL (0.0-1.0) H 07/04/20 05:45 Eos # (Auto) 0.6 10^3/uL (0.0-0.7) 07/04/20 05:45 Baso # (Auto) 0.2 10^3/uL (0.0-0.1) H 07/04/20 05:45 Absolute Nucleated RBC 0.17 x10^3/uL 07/04/20 05:45 Total Counted 100 07/03/20 05:25 Band Neuts % (Manual) 2 % (0-10) 07/03/20 05:25 Abnorm Lymph % (Manual) 0 % 07/03/20 05:25 Metamyelocytes % 2 % (-0) H 07/03/20 05:25 Myelocytes % 4 % (-0) H 07/03/20 05:25 Nucleated RBC % 0.7 /100WBC 07/04/20 05:45 Neutrophils # (Manual) 19.6 10^3/uL (1.5-6.6) H 07/03/20 05:25 Lymphocytes # (Manual) 0.7 10^3/uL (1.5-3.5) L 07/03/20 05:25 Monocytes # (Manual) 0.5 10^3/uL (0.0-1.0) 07/03/20 05:25 Eosinophils # (Manual) 0.0 10^3/uL (0-0.7) 07/03/20 05:25 Basophils # (Manual) 0.5 10^3/uL (0-0.1) H 07/03/20 05:25 Nucleated RBCs 1 % 07/02/20 19:41 Differential Comment MANUAL DIFFERENTIAL 07/03/20 05:25 Manual Slide Review Indicated 07/04/20 05:45 WBC Morphology NORMAL APPEARANCE (NORMAL) 07/03/20 05:25 Platelet Estimate NORMAL (130-450,000) (NORMAL) 07/04/20 05:45 Platelet Morphology NORMAL APPEARANCE (NORMAL) 07/04/20 05:45 RBC Morph Micro Appear 1+ HYPOCHROMASIA (NORMAL) 2+ OVALOCYTES (NORMAL) 2+ ANISOCYTOSIS (NORMAL) 07/04/20 05:45 RBC Morph Micro Appear 1+ HYPOCHROMASIA (NORMAL) 2+ OVALOCYTES (NORMAL) 2+ ANISOCYTOSIS (NORMAL) 07/04/20 05:45 RBC Morph Micro Appear 1+ HYPOCHROMASIA (NORMAL) 2+ OVALOCYTES (NORMAL) 2+ ANISOCYTOSIS (NORMAL) 07/04/20 05:45 PT 17.1 secs (9.9-12.6) H 07/04/20 05:45 INR 1.5 (0.8-1.2) H 07/04/20 05:45 APTT 46.5 secs (24.9-33.3) H 07/02/20 19:41 Sodium 142 mmol/L (135-145) 07/04/20 05:45 Potassium 3.1 mmol/L (3.5-5.0) L 07/04/20 05:45 Chloride 108 mmol/L (101-111) 07/04/20 05:45 Carbon Dioxide 25 mmol/L (21-32) 07/04/20 05:45 Anion Gap 9.0 (6-13) 07/04/20 05:45 BUN 17 mg/dL (6-20) 07/04/20 05:45 Creatinine 0.8 mg/dL (0.4-1.0) 07/04/20 05:45 Estimated GFR (MDRD) 68 (>89) L 07/04/20 05:45 Glucose 92 mg/dL (70-100) 07/04/20 05:45 Lactic Acid 1.5 mmol/L (0.5-2.2) 07/02/20 19:41 Calcium 8.2 mg/dL (8.5-10.3) L 07/04/20 05:45 Magnesium 1.8 mg/dL (1.7-2.8) 07/04/20 05:40 Total Bilirubin 1.3 mg/dL (0.2-1.0) H 07/02/20 19:41 AST 23 IU/L (10-42) 07/02/20 19:41 ALT 18 IU/L (10-60) 07/02/20 19:41 Alkaline Phosphatase 92 IU/L (42-121) 07/02/20 19:41 Total Protein 6.2 g/dL (6.7-8.2) L 07/02/20 19:41 Albumin 3.4 g/dL (3.2-5.5) 07/02/20 19:41 Globulin 2.8 g/dL (2.1-4.2) 07/02/20 19:41 Albumin/Globulin Ratio 1.2 (1.0-2.2) 07/02/20 19:41 Lipase 24 U/L (22-51) 07/02/20 19:41 Urine Color YELLOW 07/02/20 20:36 Urine Clarity CLOUDY (CLEAR) 07/02/20 20:36 Urine pH 5.5 PH (5.0-7.5) 07/02/20 20:36 Ur Specific [place] 1.025 (1.002-1.030) 07/02/20 20:36 Urine Protein TRACE mg/dL (NEGATIVE) 07/02/20 20:36 Urine Glucose (UA) NEGATIVE mg/dL (NEGATIVE) 07/02/20 20:36 Urine Ketones NEGATIVE mg/dL (NEGATIVE) 07/02/20 20:36 Urine Occult Blood MODERATE (NEGATIVE) H 07/02/20 20:36 Urine Nitrite NEGATIVE (NEGATIVE) 07/02/20 20:36 Urine Bilirubin NEGATIVE (NEGATIVE) 07/02/20 20:36 Urine Urobilinogen 0.2 (NORMAL) E.U./dL (NORMAL) 07/02/20 20:36 Ur Leukocyte Esterase TRACE (NEGATIVE) H 07/02/20 20:36 Urine RBC TNTC /HPF (0-5) H 07/02/20 20:36 Urine WBC 11-25 /HPF (0-5) H 07/02/20 20:36 Ur Epithelial Cells RARE Transitional /HPF (<= Few) FEW Renal Tubular /HPF (<= Few) 07/02/20 20:36 Ur Epithelial Cells RARE Transitional /HPF (<= Few) FEW Renal Tubular /HPF (<= Few) 07/02/20 20:36 Ur Squamous Epith Cells RARE Squamous (<= Few) 07/02/20 20:36 Urine Crystals 6-10 Calcium Oxalate /LPF 07/02/20 20:36 Urine Bacteria Few /HPF (None Seen) 07/02/20 20:36 Ur Microscopic Review INDICATED 07/02/20 20:36 Urine Culture Comments INDICATED 07/02/20 20:36 - Procedures Procedures: Procedures PACKED CELL TRANSFUSION (01/16/14) Sepsis Event Note (H) - Evaluation Possible source of Sepsis: positive: Pulmonary, Genitourinary
--- NOTE | 2020-07-04 11:46 | PHARMACY PROGRESS NOTE ---
- Best Possible Medication History Admit Date and Time: 07/02/20 2226 Processed by: Pharmacy Medication History completed: Yes Patient Interview: Completed Secondary Source(s): Spouse/Significant other (PATIENT'S SPOUSE CALLED; BIRTHDATE VERIFIED, SPOUSE ABLE TO CONFIRM HOME MEDICATIONS ), Pharmacy records, Insurance records As the person ultimately responsible for medication therapy, providers are able to order a medication from an existing home medication list in [facility] via the "Reconcile Routine" prior to Confirmation of that medication by student support services director. Such practice is discouraged except when the physician, in their clinical judgment, deems that a medical need exists for a medication without regard to previous use.
--- NOTE | 2020-07-04 12:27 | CONSULTATION NOTE ---
Palliative Care Follow Up - Referral Referring Provider: Dr. Sylvia Darling Time of Visit: 12:00-1315 Referral setting: Hospitalized patient Referral Reason: Met Squamous Cell CA/Goals of Care - Information Sources Records reviewed: Previous records reviewed History/Review of Systems obtained from: Patient Exam limitations: Clinical condition (patient fatigued) - History of Present Illness Update Brief HPI Update: This is a venkatesh 84-year-old woman who presents with progressive metastatic squamous cell carcinoma, involving the neck nodes, worsening dysphagia, increased difficulty with hydration and nutrition, weight loss, and worsening malignant wound being managed by [facility] 3 x a week. Goal is containment only. She is now been hospitalized with aspiration pneumonia, is currently receiving hydration and antibiotics, but continues to be quite fatigued. Patient has been struggling with how much "is enough" and how long she should pursue treatment. She does perceive herself is sleeping more, having increased pain, and feeling quite tired and continuing with her current pursuit of treatment and support. She has had several conversations including with myself, has not been interested in tube feedings up to this point. Patient's original squamous cell carcinoma was on her left cheek, she did recei ve a Mohs treatment for this in 2018. She did have a current submandibular lymph node in 2019 and had that removed. She was to receive radiation, and was unable to tolerate radiation, she received 4 of 30 treatments at that time. She had presented with what was thought a local recurrence, and had a bilateral neck dissection with right pectoralis major flap done on 04/16/2020. The area of surgical dissection and wound, created/developed new subcutaneous nodules and her incision along her left submandibular has opened and is been draining a significant amount of sero-sanguinous thick drainage, she has been on Levaquin with only mild improvement. 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 She also has underlying atrial fib, status post pacemaker 2008, and currently on warfarin. Social History - Living Situation Living arrangement: At home Living Situation: With spouse/s.o. Support System: She lives at home with her venkatesh Freeman, they have been together since 1980 and since He 9. They moved to [facility] in 1987, they have a blended family. They describe themselves as people of [place], members of [facility]. 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 He has been a very dedicated and able caregiver, but has found it very difficult to have her continue to decline. Medications/Allergies - Medications Active Medication List: Active Medications Sodium Chloride (Normal Saline 0.9%) 1,000 mls @ 100 mls/hr IV .Q10H [facility] Last Admin: 07/04/20 07:48 Dose: 100 mls/hr Documented by: Piperacillin Sod/Tazobactam (Sod 3.375 gm/ Sodium Chloride) 100 mls @ 25 mls/hr IV Q8H [facility] Last Infusion: 07/04/20 11:26 Dose: Infused Documented by: Pantoprazole Sodium (Protonix) 40 mg IVP QDAC [facility] Last Admin: 07/04/20 06:56 Dose: 40 mg Documented by: Petrolatum (Vaseline) 1 applic TOP PRN PRN PRN Reason: Dry Lips Last Admin: 07/03/20 22:17 Dose: 1 applic Documented by: Sodium Chloride (Normal Saline Flush 0.9%) 10 ml IVP PRN PRN PRN Reason: NEEDED PER PROVIDER ORDERS Last Admin: 07/03/20 06:03 Dose: 10 ml Documented by: Sodium Chloride (Normal Saline Flush 0.9%) 10 ml IVP 0100,0900,1700 [facility] Last Admin: 07/04/20 10:11 Dose: Not Given Documented by: Warfarin Sodium (Coumadin) 3 mg PO 1400 [facility] Digoxin 125 mcg PO DAILY 04/02/13 Diltiazem HCl [Diltiazem 24Hr ER] 240 mg PO QPM 03/20/20 Warfarin [Coumadin] 5 mg PO QDWARFARIN 05/10/20 bisacodyL [Dulcolax] 1 tab PO DAILY PRN 06/21/20 Lidocaine/Prilocain 2.5% Cream [Emla 2.5% Cream] 1 applic TOP DAILY PRN 06/23/20 Morphine Sulfate [Morphine Sulf Oral (Roxanol)] 5 mg PO .Q2 PRN 06/23/20 Tramadol HCl 50 mg PO PRN PRN 07/04/20 Warfarin Sodium 2.5 mg PO QDWARFARIN 07/04/20 - Allergies Allergies/Adverse Reactions: Allergies Allergy/AdvReac Type Severity Reaction Status Date / Time clopidogrel bisulfate * Allergy Unknown unknown Verified 07/02/20 19:25 [From Plavix] Review of Systems - Constitutional Constitutional: reports: Fatigue, Poor appetite, Weight loss. denies: Fever, Chills - Ears, Nose & Throat Ears, Nose & Throat: reports: Hearing loss, Hearing aids, Dry mouth - Cardiovascular Cardiovascular: reports: Exertional dyspnea, Decr. exercise tolerance - Respiratory Respiratory: reports: Cough, SOB with exertion. denies: SOB at rest - Gastrointestinal Gastrointestinal: reports: Poor appetite (difficulty with eating) - Genitourinary Genitourinary: reports: Other (has Wick-loves it) - Neurological Neurological: reports: General weakness - Hematologic/Lymphatic Hematologic/Lymphatic: reports: Recurrent infections (aspiration pneumonia; concern for wound) Physical Exam - Vital Signs Vital Signs: Vital Signs x48h Temp Pulse Resp BP Pulse Ox 07/04/20 07:19 36.6 C 79 18 179/73 H 97 07/04/20 04:34 36.7 C 81 17 177/76 H 96 - Physical Exam General Appearance: positive: Mild distress, Cachetic Eyes Bilateral: positive: Other (dark circles) ENT: positive: Other (difficulty opening mouth) Neck: positive: Stiff neck (poor range of motion), Other (dressing intact) Respiratory: positive: Rales Abdomen: positive: Non-tender, Soft Skin: positive: Pallor, Dryness, Other Extremities: positive: Pedal edema (1+ pedal edema LE) Neurologic/Psychiatric: positive: Oriented x3, Weakness, Facial droop (causes by surgery;), Slurred/abnml speech, Flat affect Palliative Care - POLST Patient has POLST: Yes POLST Status: DNR, Selective Treatment Pain: Pain worsening, Location (across facial discomfort/neck new) Tiredness/Fatigue: Severe (7-10) Drowsiness/Sedation: Moderate (4-6) Nausea: None Anorexia: Severe (7-10), Weight loss Dyspnea: Mild (1-3) Depression: Mild (1-3) Anxiety: Mild (1-3) Feelings of wellbeing/Perceived Quality of Life: Poor, Worsening - Palliative Care Discussion: Met with patient first, expressing worsening quality of life. Getting "tired" does not want to continue and ready to be at home. Feels this has been a difficult decision because wants for her to continue. She is having worsening pain, to her this brings into an element of suffering, she reports she has been sleeping most the time, she has been pretty adamant up to this point in time she does not want a feeding tube. Given she is unable to sustain her nutrition and fluids, this is up point where goals of care are important to alicia mari. Counseling provided regarding hospice, what at home with look like, support for Freeman, and allowing natural . Both patient and her are Alevism, suspect this plays into some of the difficulties around her decline. She did ask I would meet with Freeman, and was given permission to discuss her wishes, and help explain what transition would look like. We did discuss currently she would want her pneumonia treated, to "tune up" but recognizing would discharge with hospice with a focus on comfort. Met with Freeman, he had arrived about 15 minutes later. He was willing to meet with me and we did discuss Pat's feelings regarding wanting to transition to comfort focused and be at home. He is having difficulty while recognizing that her demise will be most likely fairly quick, days to weeks, if she were not to have support of hydration and nutrition. Counseling provided regarding tube feedings would not mitigate the aspiration risk given her tumor burden and c urrent dysphagia. We did discuss in the context of her suffering, that she is expressing at this point a focus on comfort. Counseling provided to Freeman regarding what the hospice benefit does provide, but would still need support of caregiving, she does have 3 sons. This is difficult for him to consider how to share this news, and how best to integrate them into end-of-life plans. Did offer to facilitate conversation between the 2 of them, he would like to have a private conversation with her first. He will confirm regarding moving forward with hospice, or any clarifying information he might need. Results - Lab Results Lab results reviewed: Yes Fish Bones: 07/04/20 05:45 07/04/20 05:45 Lab and Imaging Results: Lab Results x24hrs 07/04/20 07/04/20 07/04/20 Range/Units 05:45 05:45 05:45 WBC 24.6 H (4.8-10.8) x10^3/uL RBC 4.01 L (4.20-5.40) 10^6/uL Hgb 9.4 L (12.0-16.0) g/dL Hct 32.6 L (37.0-47.0) % MCV 81.3 (81.0-99.0) fL MCH 23.4 L (27.0-31.0) pg MCHC 28.8 L (32.0-36.0) g/dL RDW 23.6 H (12.0-15.0) % Plt Count 196 (130-450) 10^3/uL MPV 9.4 (7.9-10.8) fL Neut # (Auto) 19.0 H (1.5-6.6) 10^3/uL Lymph # (Auto) 0.9 L (1.5-3.5) 10^3/uL [place] # (Auto) 1.3 H (0.0-1.0) 10^3/uL Eos # (Auto) 0.6 (0.0-0.7) 10^3/uL Baso # (Auto) 0.2 H (0.0-0.1) 10^3/uL Absolute Nucleated RBC 0.17 x10^3/uL Nucleated RBC % 0.7 /100WBC Manual Slide Review Indicated Platelet Estimate NORMAL (130-450,000) (NORMAL) Platelet Morphology NORMAL APPEARANCE (NORMAL) RBC Morph Micro Appear 2+ ANISOCYTOSIS (NORMAL) PT 17.1 H (9.9-12.6) secs INR 1.5 H (0.8-1.2) Sodium 142 (135-145) mmol/L Potassium 3.1 L (3.5-5.0) mmol/L Chloride 108 (101-111) mmol/L Carbon Dioxide 25 (21-32) mmol/L Anion Gap 9.0 (6-13) BUN 17 (6-20) mg/dL Creatinine 0.8 (0.4-1.0) mg/dL Estimated GFR (MDRD) 68 L (>89) Glucose 92 (70-100) mg/dL Calcium 8.2 L (8.5-10.3) mg/dL Magnesium (1.7-2.8) mg/dL Coronavirus (PCR) 07/04/20 07/02/20 Range/Units 05:40 20:10 WBC (4.8-10.8) x10^3/uL RBC (4.20-5.40) 10^6/uL Hgb (12.0-16.0) g/dL Hct (37.0-47.0) % MCV (81.0-99.0) fL MCH (27.0-31.0) pg MCHC (32.0-36.0) g/dL RDW (12.0-15.0) % Plt Count (130-450) 10^3/uL MPV (7.9-10.8) fL Neut # (Auto) (1.5-6.6) 10^3/uL Lymph # (Auto) (1.5-3.5) 10^3/uL [place] # (Auto) (0.0-1.0) 10^3/uL Eos # (Auto) (0.0-0.7) 10^3/uL Baso # (Auto) (0.0-0.1) 10^3/uL Absolute Nucleated RBC x10^3/uL Nucleated RBC % /100WBC Manual Slide Review Platelet Estimate (NORMAL) Platelet Morphology (NORMAL) RBC Morph Micro Appear (NORMAL) PT (9.9-12.6) secs INR (0.8-1.2) Sodium (135-145) mmol/L Potassium (3.5-5.0) mmol/L Chloride (101-111) mmol/L Carbon Dioxide (21-32) mmol/L Anion Gap (6-13) BUN (6-20) mg/dL Creatinine (0.4-1.0) mg/dL Estimated GFR (MDRD) (>89) Glucose (70-100) mg/dL Calcium (8.5-10.3) mg/dL Magnesium 1.8 (1.7-2.8) mg/dL Coronavirus (PCR) NEGATIVE Impression and Recommendations - Palliative Care Impression: This is a venkatesh gentle 84-year-old woman with 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 She is having increased malignant wound sequela, with increased exudate, worsening pain, and is not expected to heal but being managed. She is having increased dysphagia, now presents with aspiration pneumonia, she is quite frail and has been struggling with decision to transition to more comfort focused care. Family conference with patient and separately, patient has been expressing goal of transitioning home after discharge with hospice. continues to struggle with patient's decline, awaiting final decision. Palliative care to continue provide support and anticipatory guidance. Recommendations/Counseling Done: 1. Pain of neoplastic origin. Patient is describing increased pain and discomfort. Patient unable to take oral medications at this point in time, would benefit at minimum of scheduled Ofirmev 3 times daily. Patient has been using tramadol intermittently and does have Roxanol at home available. Patient may need may see his catheter at home for drug delivery given difficulty with secretions. 2. Malignant neck wound. Patient's current wound care orders for home health are cleansed with normal saline, apply 2% lidocaine jelly while removing previous dressing for patient comfort. After cleansing them all areas, apply barrier cream to periwound area for re-protection. Xeroform applied over anterior neck and jaw wounds, plain film over Xeroform and secure all with soft roll gauze. 3. Protein calorie malnutrition. Patient at this point in time does not want a PEG tube feeding, is getting hydration, and Thick it. Counseling provided to regarding tube feedings, do not mitigate the risk for aspiration pneumonia. Reviewed goal will be to drink and eat for comfort, patient would be able to have clear water if she wanted. Recognizing this would be part of her decline and demise, and allowing natural and transition to hospice. 4. Aspiration pneumonia. Patient quite frail, has been on Levaquin for 3 weeks . Hope is patient would improve as far as aspiration pneumonia, would be able to get oxygen through hospice on discharge. Will need to continue to monitor, patient may not be able to recover given her frailty, most likely continued aspiration, and declining status. 5. Advanced care planning. Patient is expressing wishes to focus on comfort, we did discuss treating pneumonia to allow time to get her affairs in order and transition home. Did speak with per patient's wishes, wanted time alone first before further conversation together. Counseling provided to both regarding hospice, hospice benefit, and goals of care. Alerted hospice of possible pending discharge in the next 2 to 3 days, will need equipment. Will revisit tomorrow morning. Time Spent: 75 minutes with greater than 50% of this done in counseling regarding goals of care, coordination of care with hospital team. Did reach out in follow-up with oncology regarding patient's current status, and pending possible transition to hospice.
[2020-07-04] MEDS: WARFARIN 1 MG TABLET PO SCH (13:52)
[2020-07-05] MEDS: SODIUM CHLORIDE FLUSH 0.9% 10 ML SYRINGE IVP SCH ×4 (01:03→23:41)
[2020-07-05] MEDS: SODIUM CHLORIDE 0.9% 1,000 ML IV SCH (03:08)
[2020-07-05 05:48] LABS: BASOPHILS % (AUTO) 1.1 %; EOSINOPHILS % (AUTO) 2.2 %; HGB - HEMOGLOBIN 9.3 g/dL (12.0-16.0); LYMPHOCYTES % (AUTO) 3.9 %; MEAN CORPUSCULAR HEMOGLOBIN 23.3 pg (27.0-31.0); MEAN CORPUSCULAR VOLUME 80.3 fL (81.0-99.0); MEAN PLATELET VOLUME 9.8 fL (7.9-10.8); MONOCYTES % (AUTO) 4.4 %; NEUTROPHILS % (AUTO) 77.6 %; PLT - PLATELET COUNT 230 10^3/uL (130-450); RED CELL DISTRIBUTION WIDTH 23.4 % (12.0-15.0); WHITE BLOOD COUNT 26.9 x10^3/uL (4.8-10.8)
[2020-07-05 05:50] LABS: ABNORMAL LYMPHS % (MANUAL) 0 %
[2020-07-05] MEDS: SODIUM CHLORIDE FLUSH 0.9% 10 ML SYRINGE IVP PRN ×2 (05:51→23:54)
[2020-07-05] MEDS: PANTOPRAZOLE 40 MG VIAL IVP SCH (05:51)
[2020-07-05] MEDS: PIPERACILLIN/TAZOBACTAM 3.375 GM in SODIUM CHLORIDE 0.9% MINIBAG 100 ML IV SCH ×3 (05:51→22:35)
[2020-07-05 05:53] LABS: INR 1.4 (0.8-1.2)
[2020-07-05 05:59] LABS: CREATININE 0.7 mg/dL (0.4-1.0)
[2020-07-05 06:14] LABS: BAND NEUTROPHILS % (MANUAL) 1 %; BASOPHILS # (MANUAL) 0.3 10^3/uL (0-0.1); BASOPHILS % (MANUAL) 1 %; EOSINOPHILS # (MANUAL) 0.3 10^3/uL (0-0.7); LYMPHOCYTES # (MANUAL) 1.3 10^3/uL (1.5-3.5); LYMPHOCYTES % (MANUAL) 5 %; METAMYELOCYTES % (MANUAL) 1 %; MONOCYTES # (MANUAL) 0.3 10^3/uL (0.0-1.0); MYELOCYTES % (MANUAL) 5 %
[2020-07-05 06:17] LABS: DIFFERENTIAL COMMENT MANUAL DIFFERENTIAL; PLATELET ESTIMATE, MANUAL NORMAL (130-450,000) (NORMAL); PLATELET MORPHOLOGY NORMAL APPEARANCE (NORMAL)
[2020-07-05] MEDS ORDERED: MIN OIL/DIMETHICON/COCONUT OIL 92 GM TUBE TOP PRN (07:32)
[2020-07-05] MEDS ORDERED: MORPHINE 2 MG/ML CARPUJECT IVP PRN (08:09)
[2020-07-05] MEDS: POTASSIUM CHLOR 10 MEQ/100 ML 10 MEQ/100 ML BAG IV SCH ×7 (08:31→21:35)
--- NOTE | 2020-07-05 14:43 | PROVIDER PROGRESS NOTE ---
Assessment/Plan - Problem List (1) Pneumonia Qualifiers: Pneumonia type: due to unspecified organism Laterality: bilateral Lung location: unspecified part of lung Qualified Code(s): J18.9 - Pneumonia, unspecified organism Assessment/Plan: Chest x-ray show patchy basilar atelectasis plus consolidation. This is a presumed aspiration pneumonia because of the extensive abnormality of her neck a nd throat, she chokes with liquids which was witnessed. COVID test is neg, Continue with IV antibiotic Zosyn until d/c Continue with supplemental oxygen Continue with IV hydration (2) Squamous cell carcinoma of skin of other parts of face Assessment/Plan: There is drainage from the upper part of the neck and basal part of the jaw, continue wound consult. Patient's and patient self right now requests for hospice care. Keep patient comfortable measure. Continue with topical care. She denies any pain in this area. (3) Atrial fibrillation Assessment/Plan: Heart rate is well controlled.Continue Coumadin, Continue Cardizem, And digoxin, per Patient's requests (4) Elevated INR Assessment/Plan: Resolved, will continue Coumadin, continue PT and INR check until discharge (5) Myeloproliferative disorder Assessment/Plan: She has a chronic white blood cell elevation. Follow CBC daily (6)Encounter for hospice care Per palliative care provider, Patient self want to have hospice care, now her agree to have hospice care for pt, hospice team will come to patient home after tomorrow and hospice equipment will be delivered to the patient home on tomorrow. - Current Meds Current Meds: Current Medications Generic Name Dose Route Start Last Admin Trade Name Freq PRN Reason Stop Dose Admin Sodium Chloride 1,000 mls @ 100 mls/hr 07/02/20 23:00 07/05/20 03:08 Normal Saline 0.9% IV 100 mls/hr .Q10H JADA Administration Piperacillin Sod/Tazobactam 100 mls @ 25 mls/hr 07/03/20 14:00 07/05/20 11:28 Sod 3.375 gm/ Sodium Chloride IV 07/10/20 13:59 Infused Q8H JADA Infusion Potassium Chloride 10 meq in 100 mls @ 100 mls/hr 07/05/20 09:00 07/05/20 11:32 Potassium Chloride IV 07/05/20 15:59 100 mls/hr Q1H JADA Administration Pantoprazole Sodium 40 mg 07/03/20 07:00 07/05/20 05:51 Protonix IVP 40 mg QDAC JADA Administration Petrolatum 1 applic 07/03/20 19:55 07/03/20 22:17 Vaseline TOP 1 applic PRN PRN Administration Dry Lips Sodium Chloride 10 ml 07/02/20 22:26 07/05/20 05:51 Normal Saline Flush 0.9% IVP 10 ml PRN PRN Administration NEEDED PER PROVIDER ORDERS Sodium Chloride 10 ml 07/03/20 01:00 07/05/20 05:51 Normal Saline Flush 0.9% IVP 10 ml 0100,0900,1700 JADA Administration Warfarin Sodium 3 mg 07/04/20 14:00 07/04/20 13:52 Coumadin PO 3 mg 1400 JADA Administration - Lab Result Fish Bone Diagrams: 07/05/20 05:18 07/05/20 05:18 - Additional Planning My Orders: My Active Orders 07/05/20 Hospice Referral [CONS] Routine Social Work Consult [CONS] Routine 07/05/20 08:09 Morphine Inj (Carpuject) [Morphine (Carpuject)] 2 mg IVP Q2HR PRN 07/05/20 09:00 Potassium Chlor 10 Meq/100 ml [Potassium Chloride] 10 meq in 100 ml IV Q1H 07/05/20 10:53 Miscellaenous Nursing Order [RC] ONCE 07/05/20 13:00 Digoxin [Lanoxin] 125 mcg PO DAILY 07/06/20 09:00 Lidocaine/Prilocain 2.5% Cream [Emla 2.5% Cream] 1 applic TOP DAILY Subjective - Subjective Nursing Reports: No Complaints Objective Vital Signs: Vital Signs - 24 hr 07/04/20 07/04/20 07/05/20 17:00 20:54 00:24 Temperature 37.0 C 37.0 C 37.2 C Heart Rate [ 74 77 76 Radial] Respiratory 20 20 16 Rate Blood Pressure 158/66 H 164/69 H [Left Brachial artery] Blood Pressure 155/65 H [Right Brachial artery] O2 Saturation 96 95 96 07/05/20 07/05/20 07/05/20 03:10 08:42 13:00 Temperature 37.3 C 36.7 C Heart Rate [ 81 99 Radial] Respiratory 16 14 Rate Blood Pressure 155/64 H 145/92 H 108/87 H [Left Brachial artery] Blood Pressure [Right Brachial artery] O2 Saturation 93 96 94 Oxygen O2 Source Nasal cannula Oxygen Flow Rate 6 I&O (Last 24 Hrs): Intake and Output Totals x24h 07/03/20 07/04/20 07/05/20 23:59 23:59 23:59 Intake Total 2222.167 3079.999 896.667 Output Total 1250 1200 500 Balance 766.148 0286.999 396.667 General: Alert, Oriented x3, No acute distress HEENT: Atraumatic Neck: Supple Neuro: Alert Cardiovascular: Normal S1, Normal S2 Respiratory: Chest non-tender, No respiratory distress Abdomen: Normal bowel sounds, Soft, No tenderness Extremities: Normal pulses - Results Results: Laboratory Results WBC 26.9 x10^3/uL (4.8-10.8) H 07/05/20 05:18 RBC 4.00 10^6/uL (4.20-5.40) L 07/05/20 05:18 Hgb 9.3 g/dL (12.0-16.0) L 07/05/20 05:18 Hct 32.1 % (37.0-47.0) L 07/05/20 05:18 MCV 80.3 fL (81.0-99.0) L 07/05/20 05:18 MCH 23.3 pg (27.0-31.0) L 07/05/20 05:18 MCHC 29.0 g/dL (32.0-36.0) L 07/05/20 05:18 RDW 23.4 % (12.0-15.0) H 07/05/20 05:18 Plt Count 230 10^3/uL (130-450) 07/05/20 05:18 MPV 9.8 fL (7.9-10.8) 07/05/20 05:18 Neut # (Auto) Not Reportable 07/05/20 05:18 Lymph # (Auto) Not Reportable 07/05/20 05:18 Harnett # (Auto) Not Reportable 07/05/20 05:18 Eos # (Auto) Not Reportable 07/05/20 05:18 Baso # (Auto) Not Reportable 07/05/20 05:18 Absolute Nucleated RBC Not Reportable 07/05/20 05:18 Total Counted 100 07/05/20 05:18 Band Neuts % (Manual) 1 % (0-10) 07/05/20 05:18 Abnorm Lymph % (Manual) 0 % 07/05/20 05:18 Metamyelocytes % 1 % (-0) H 07/05/20 05:18 Myelocytes % 5 % (-0) H 07/05/20 05:18 Nucleated RBC % Not Reportable 07/05/20 05:18 Neutrophils # (Manual) 23.1 10^3/uL (1.5-6.6) H 07/05/20 05:18 Lymphocytes # (Manual) 1.3 10^3/uL (1.5-3.5) L 07/05/20 05:18 Monocytes # (Manual) 0.3 10^3/uL (0.0-1.0) 07/05/20 05:18 Eosinophils # (Manual) 0.3 10^3/uL (0-0.7) 07/05/20 05:18 Basophils # (Manual) 0.3 10^3/uL (0-0.1) H 07/05/20 05:18 Nucleated RBCs 1 % 07/02/20 19:41 Differential Comment MANUAL DIFFERENTIAL 07/05/20 05:18 Manual Slide Review Indicated 07/04/20 05:45 WBC Morphology NORMAL APPEARANCE (NORMAL) 07/05/20 05:18 Platelet Estimate NORMAL (130-450,000) (NORMAL) 07/05/20 05:18 Platelet Morphology NORMAL APPEARANCE (NORMAL) 07/05/20 05:18 RBC Morph Micro Appear 3+ ANISOCYTOSIS (NORMAL) 1+ OVALOCYTES (NORMAL) 1+ POLYCHROMASIA (NORMAL) 07/05/20 05:18 RBC Morph Micro Appear 3+ ANISOCYTOSIS (NORMAL) 1+ OVALOCYTES (NORMAL) 1+ POLYCHROMASIA (NORMAL) 07/05/20 05:18 RBC Morph Micro Appear 3+ ANISOCYTOSIS (NORMAL) 1+ OVALOCYTES (NORMAL) 1+ POLYCHROMASIA (NORMAL) 07/05/20 05:18 PT 16.0 secs (9.9-12.6) H 07/05/20 05:18 INR 1.4 (0.8-1.2) H 07/05/20 05:18 APTT 46.5 secs (24.9-33.3) H 07/02/20 19:41 Sodium 139 mmol/L (135-145) 07/05/20 05:18 Potassium 2.8 mmol/L (3.5-5.0) L 07/05/20 05:18 Chloride 110 mmol/L (101-111) 07/05/20 05:18 Carbon Dioxide 20 mmol/L (21-32) L 07/05/20 05:18 Anion Gap 9.0 (6-13) 07/05/20 05:18 BUN 15 mg/dL (6-20) 07/05/20 05:18 Creatinine 0.7 mg/dL (0.4-1.0) 07/05/20 05:18 Estimated GFR (MDRD) 80 (>89) L 07/05/20 05:18 Glucose 69 mg/dL (70-100) L 07/05/20 05:18 Lactic Acid 1.5 mmol/L (0.5-2.2) 07/02/20 19:41 Calcium 8.0 mg/dL (8.5-10.3) L 07/05/20 05:18 Magnesium 1.8 mg/dL (1.7-2.8) 07/04/20 05:40 Total Bilirubin 1.3 mg/dL (0.2-1.0) H 07/02/20 19:41 AST 23 IU/L (10-42) 07/02/20 19:41 ALT 18 IU/L (10-60) 07/02/20 19:41 Alkaline Phosphatase 92 IU/L (42-121) 07/02/20 19:41 Total Protein 6.2 g/dL (6.7-8.2) L 07/02/20 19:41 Albumin 3.4 g/dL (3.2-5.5) 07/02/20 19:41 Globulin 2.8 g/dL (2.1-4.2) 07/02/20 19:41 Albumin/Globulin Ratio 1.2 (1.0-2.2) 07/02/20 19:41 Lipase 24 U/L (22-51) 07/02/20 19:41 Urine Color YELLOW 07/02/20 20:36 Urine Clarity CLOUDY (CLEAR) 07/02/20 20:36 Urine pH 5.5 PH (5.0-7.5) 07/02/20 20:36 Ur Specific Tyner 1.025 (1.002-1.030) 07/02/20 20:36 Urine Protein TRACE mg/dL (NEGATIVE) 07/02/20 20:36 Urine Glucose (UA) NEGATIVE mg/dL (NEGATIVE) 07/02/20 20:36 Urine Ketones NEGATIVE mg/dL (NEGATIVE) 07/02/20 20:36 Urine Occult Blood MODERATE (NEGATIVE) H 07/02/20 20:36 Urine Nitrite NEGATIVE (NEGATIVE) 07/02/20 20:36 Urine Bilirubin NEGATIVE (NEGATIVE) 07/02/20 20:36 Urine Urobilinogen 0.2 (NORMAL) E.U./dL (NORMAL) 07/02/20 20:36 Ur Leukocyte Esterase TRACE (NEGATIVE) H 07/02/20 20:36 Urine RBC TNTC /HPF (0-5) H 07/02/20 20:36 Urine WBC 11-25 /HPF (0-5) H 07/02/20 20:36 Ur Epithelial Cells RARE Transitional /HPF (<= Few) FEW Renal Tubular /HPF (<= Few) 07/02/20 20:36 Ur Epithelial Cells RARE Transitional /HPF (<= Few) FEW Renal Tubular /HPF (<= Few) 07/02/20 20:36 Ur Squamous Epith Cells RARE Squamous (<= Few) 07/02/20 20:36 Urine Crystals 6-10 Calcium Oxalate /LPF 07/02/20 20:36 Urine Bacteria Few /HPF (None Seen) 07/02/20 20:36 Ur Microscopic Review INDICATED 07/02/20 20:36 Urine Culture Comments INDICATED 07/02/20 20:36 Coronavirus (PCR) NEGATIVE 07/02/20 20:10 - Procedures Procedures: Procedures PACKED CELL TRANSFUSION (01/16/14) Sepsis Event Note (H) - Evaluation Possible source of Sepsis: positive: Pulmonary, Genitourinary ABX Reporting Has patient been on IV antibiotics over the past 48 hours?: Yes Current Medications - Current Medications Current Medications: Active Medications Digoxin (Lanoxin) 125 mcg PO DAILY [facility] Last Admin: 07/05/20 14:59 Dose: 125 mcg Documented by: Diltiazem HCl (Cardizem Cd) 240 mg PO QPM [facility] Piperacillin Sod/Tazobactam (Sod 3.375 gm/ Sodium Chloride) 100 mls @ 25 mls/hr IV Q8H [facility] Stop: 07/10/20 13:59 Last Infusion: 07/05/20 11:28 Dose: Infused Documented by: Potassium Chloride (Potassium Chloride) 10 meq in 100 mls @ 100 mls/hr IV Q1H [facility] Stop: 07/05/20 15:59 Last Admin: 07/05/20 11:32 Dose: 100 mls/hr Documented by: Potassium Chloride/Dextrose/Sod Cl (D5.45ns W/20 Meq Kcl) 1,000 mls @ 83.333 mls/hr IV .Q12H [facility] Lidocaine/Prilocaine (Emla 2.5% Cream) 1 applic TOP DAILY [facility] Mineral Oil (Cavilon) 1 applic TOP PRN PRN PRN Reason: Skin Care Morphine Sulfate (Morphine (Carpuject)) 2 mg IVP Q2HR PRN PRN Reason: PAIN Pantoprazole Sodium (Protonix) 40 mg IVP QDAC [facility] Last Admin: 07/05/20 05:51 Dose: 40 mg Documented by: Petrolatum (Vaseline) 1 applic TOP PRN PRN PRN Reason: Dry Lips Last Admin: 07/03/20 22:17 Dose: 1 applic Documented by: Sodium Chloride (Normal Saline Flush 0.9%) 10 ml IVP PRN PRN PRN Reason: NEEDED PER PROVIDER ORDERS Last Admin: 07/05/20 05:51 Dose: 10 ml Documented by: Sodium Chloride (Normal Saline Flush 0.9%) 10 ml IVP 0100,0900,1700 [facility] Last Admin: 07/05/20 05:51 Dose: 10 ml Documented by: Warfarin Sodium (Coumadin) 3 mg PO 1400 [facility] Last Admin: 07/05/20 15:00 Dose: 3 mg Documented by: Digoxin 125 mcg PO DAILY 04/02/13 Diltiazem HCl [Diltiazem 24Hr ER] 240 mg PO QPM 03/20/20 Warfarin [Coumadin] 5 mg PO QDWARFARIN 05/10/20 bisacodyL [Dulcolax] 1 tab PO DAILY PRN 06/21/20 Lidocaine/Prilocain 2.5% Cream [Emla 2.5% Cream] 1 applic TOP DAILY PRN 06/23/20 Morphine Sulfate [Morphine Sulf Oral (Roxanol)] 5 mg PO .Q2 PRN 06/23/20 Tramadol HCl 50 mg PO PRN PRN 07/04/20 Warfarin Sodium 2.5 mg PO QDWARFARIN 07/04/20
[2020-07-05] MEDS: DIGOXIN 125 MCG TABLET PO SCH (14:59)
[2020-07-05] MEDS: WARFARIN 1 MG TABLET PO SCH (15:00)
[2020-07-05] MEDS: D5.45NS W/20 MEQ KCL 1,000 ML IV SCH (16:24)
[2020-07-05] MEDS ORDERED: traMADol 50 MG TABLET PO PRN (16:52)
--- NOTE | 2020-07-05 17:15 | CONSULTATION NOTE ---
Palliative Care Follow Up - Referral Referring Provider: Sylvia Darling MD Time of Visit: [id number] Referral setting: Hospitalized patient Referral Reason: Met squamous cell ca/aspiration pneumonia/goals of care - Information Sources Records reviewed: Previous records reviewed History/Review of Systems obtained from: Patient, Family ( David at bedside; son Tomasz from [place] present) Exam limitations: Clinical condition (patient drifty and fatigued) - History of Present Illness Update Brief HPI Update: Please see HPI 07/04. This is a nemo 84-year-old woman who presents with progressive metastatic squamous cell carcinoma, involving the neck nodes, worsening dysphagia, increased difficulty with nutrition, persistent weight loss, and worsening malignant wound. Patient has been admitted for acute aspi ration pneumonia, most likely is continuing to quietly aspirate, she is having some difficulty with her secretions, but is able to swallow. She is unable to take sustainable nutrition, but conversation and focus today has been on eating for comfort. Patient has been having conversations regarding transitioning to comfort focused care, she is quite fatigued, did have a conversation both with patient and yesterday separately, they have decided to move forward with hospice care. Goals currently are to treat her aspiration pneumonia, recognizing most likely is not going to have a sustained outcome, in fact her WBCs are creeping up again today. She has has a weak cough, and scattered wheezes and rhonchi in her upper lobes. She does appear comfortable today, she does deny pain, she is enjoying her visit from her son who came up from [place]. Social History - Living Situation Living arrangement: At home Living Situation: With spouse/s.o. Support System: Patient lives at home with her nemo David, they are considering what kind of support they are going to need. We did discuss limitations of what hospice can provide, unclear if family is going to stay and participate in caregiving or not. May need supplemental parent caregiving. Though David is quite capable and has been taking care of her up to this point. We did discuss her care needs to be easier, with Galvez catheter, and bedbound status Medications/Allergies - Medications Active Medication List: Active Medications Digoxin (Lanoxin) 125 mcg PO DAILY [facility] Last Admin: 07/05/20 14:59 Dose: 125 mcg Documented by: Diltiazem HCl (Cardizem Cd) 240 mg PO QPM [facility] Piperacillin Sod/Tazobactam (Sod 3.375 gm/ Sodium Chloride) 100 mls @ 25 mls/hr IV Q8H [facility] Stop: 07/10/20 13:59 Last Admin: 07/05/20 16:02 Dose: 25 mls/hr Documented by: Potassium Chloride/Dextrose/Sod Cl (D5.45ns W/20 Meq Kcl) 1,000 mls @ 83.333 mls/hr IV .Q12H [facility] Last Admin: 07/05/20 16:24 Dose: 83.333 mls/hr Documented by: Lidocaine/Prilocaine (Emla 2.5% Cream) 1 applic TOP DAILY [facility] Mineral Oil (Cavilon) 1 applic TOP PRN PRN PRN Reason: Skin Care Morphine Sulfate (Morphine (Carpuject)) 2 mg IVP Q2HR PRN PRN Reason: PAIN Pantoprazole Sodium (Protonix) 40 mg IVP QDAC [facility] Last Admin: 07/05/20 05:51 Dose: 40 mg Documented by: Petrolatum (Vaseline) 1 applic TOP PRN PRN PRN Reason: Dry Lips Last Admin: 07/03/20 22:17 Dose: 1 applic Documented by: Sodium Chloride (Normal Saline Flush 0.9%) 10 ml IVP PRN PRN PRN Reason: NEEDED PER PROVIDER ORDERS Last Admin: 07/05/20 05:51 Dose: 10 ml Documented by: Sodium Chloride (Normal Saline Flush 0.9%) 10 ml IVP 0100,0900,1700 [facility] Last Admin: 07/05/20 16:27 Dose: 10 ml Documented by: Tramadol HCl (Ultram) 50 mg PO PRN PRN PRN Reason: PAIN Warfarin Sodium (Coumadin) 3 mg PO 1400 [facility] Last Admin: 07/05/20 15:00 Dose: 3 mg Documented by: Digoxin 125 mcg PO DAILY 04/02/13 Diltiazem HCl [Diltiazem 24Hr ER] 240 mg PO QPM 03/20/20 Warfarin [Coumadin] 5 mg PO QDWARFARIN 05/10/20 bisacodyL [Dulcolax] 1 tab PO DAILY PRN 06/21/20 Lidocaine/Prilocain 2.5% Cream [Emla 2.5% Cream] 1 applic TOP DAILY PRN 06/23/20 Morphine Sulfate [Morphine Sulf Oral (Roxanol)] 5 mg PO .Q2 PRN 06/23/20 Tramadol HCl 50 mg PO PRN PRN 07/04/20 Warfarin Sodium 2.5 mg PO QDWARFARIN 07/04/20 - Allergies Allergies/Adverse Reactions: Allergies Allergy/AdvReac Type Severity Reaction Status Date / Time clopidogrel bisulfate * Allergy Unknown unknown Verified 07/02/20 19:25 [From Plavix] Review of Systems - Constitutional Constitutional: reports: Fatigue, Weight loss. denies: Fever - Ears, Nose & Throat Ears, Nose & Throat: reports: Hearing loss, Hearing aids, Dry mouth - Cardiovascular Cardiovascular: reports: Irregular heart rate, Decr. exercise tolerance - Respiratory Respiratory: reports: Cough (weak), SOB with exertion. denies: SOB at rest (has oxygen on) - Gastrointestinal Gastrointestinal: reports: Other (eating/drinking only small amounts with thick it) - Genitourinary Genitourinary: reports: Other (has WICK; will need galvez placed prioir to discharge; suggest place tomorrow) - Musculoskeletal Musculoskeletal: reports: Stiffness, Limited range of motion, Muscle weakness, Other (was up in chair today; significant effort; discussed concentrating on expending less energy and bedbound status okay at this time) - Neurological Neurological: reports: General weakness, Memory problems - Psychiatric Psychiatric: denies: Depression (appears calm and at peace) - All Other Systems All Other Systems: reports: Other (limited ROS) Physical Exam - Vital Signs Vital Signs: Vital Signs x48h Temp Pulse Resp BP Pulse Ox 07/05/20 16:28 37.1 C 93 24 159/76 H 93 07/05/20 13:00 108/87 H 94 - Physical Exam General Appearance: positive: No acute distress, Lethargic, Cachetic Eyes Bilateral: positive: Normal inspection ENT: positive: Other (difficulty opening mouth) Neck: positive: Stiff neck (poor range of motion), Other (dressing intact; reviewed with nurse drsg changes in note from yesterday and lidocaine ointment being ordered) Respiratory: positive: No respiratory distress, Wheezes, Rhonchi Abdomen: positive: Non-tender, Soft Skin: positive: Pallor, Dryness, Other (malignant wound neck) Extremities: positive: Pedal edema (1+ pedal edema LE) Neurologic/Psychiatric: positive: Disoriented to time, Weakness, Facial droop (causes by surgery;), Slurred/abnml speech, Flat affect Palliative Care - POLST Patient has POLST: Yes POLST Status: DNR, Comfort Measures (will need updated POLST prior to discharge tomorrow will complete) Pain: Pain improved, Location (neck; declines need for med currently;) Tiredness/Fatigue: Severe (7-10) Drowsiness/Sedation: Moderate (4-6) Nausea: None Anorexia: Severe (7-10) Dyspnea: Mild (1-3) Depression: Mild (1-3) Anxiety: Mild (1-3) Feelings of wellbeing/Perceived Quality of Life: Poor, Worsening Sleep: Variable sleep pattern Performance Status: Patient bedbound, had tried to be up in the chair earlier today, found it quite exhausting. Did discuss patient will be bedbound at home, to manage energy conservation, though will order a transfer wheelchair in case she does want to change positions and transfer to the couch. We did discuss where to pace the bed, what equipment that might need. This was communicated to hospice hospital bed/over the bed table, commode, oxygen, and transport wheelchair. - Palliative Care Discussion: Patient does appear PEs, she reiterated that she is quite tired. She is very much enjoying visit with her son from [place]. Jay had communicated he was supportive of what patient wanted. He was very reticent to talk about this in front of her, we again reviewed the hospice benefit, the plan for equipment tomorrow, discharge on . Focus would be comfort, recognizing she would just have food and drink for comfort only and not to cause distress. Would focus on comfort medications. We did discuss again her aspiration pneumonia, most likely she is continue to aspirate, this is just a finger in the diet. The hope is to fine-tune. Results - Lab Results Lab results reviewed: Yes Fish Bones: 07/05/20 05:18 07/05/20 05:18 Lab and Imaging Results: Lab Results x24hrs 07/05/20 07/05/20 07/05/20 Range/Units 05:18 05:18 05:18 WBC 26.9 H (4.8-10.8) x10^3/uL RBC 4.00 L (4.20-5.40) 10^6/uL Hgb 9.3 L (12.0-16.0) g/dL Hct 32.1 L (37.0-47.0) % MCV 80.3 L (81.0-99.0) fL MCH 23.3 L (27.0-31.0) pg MCHC 29.0 L (32.0-36.0) g/dL RDW 23.4 H (12.0-15.0) % Plt Count 230 (130-450) 10^3/uL MPV 9.8 (7.9-10.8) fL Neut # (Auto) Not Reportable Lymph # (Auto) Not Reportable [place] # (Auto) Not Reportable Eos # (Auto) Not Reportable Baso # (Auto) Not Reportable Absolute Nucleated RBC Not Reportable Total Counted 100 Band Neuts % (Manual) 1 (0 - 10) % Abnorm Lymph % (Manual) 0 % Metamyelocytes % 1 H ( - 0) % Myelocytes % 5 H ( - 0) % Nucleated RBC % Not Reportable Neutrophils # (Manual) 23.1 H (1.5-6.6) 10^3/uL Lymphocytes # (Manual) 1.3 L (1.5-3.5) 10^3/uL Monocytes # (Manual) 0.3 (0.0-1.0) 10^3/uL Eosinophils # (Manual) 0.3 (0-0.7) 10^3/uL Basophils # (Manual) 0.3 H (0-0.1) 10^3/uL Differential Comment MANUAL DIFFERENTIAL WBC Morphology NORMAL APPEARANCE (NORMAL) Platelet Estimate NORMAL (130-450,000) (NORMAL) Platelet Morphology NORMAL APPEARANCE (NORMAL) RBC Morph Micro Appear 1+ POLYCHROMASIA (NORMAL) PT 16.0 H (9.9-12.6) secs INR 1.4 H (0.8-1.2) Sodium 139 (135-145) mmol/L Potassium 2.8 L (3.5-5.0) mmol/L Chloride 110 (101-111) mmol/L Carbon Dioxide 20 L (21-32) mmol/L Anion Gap 9.0 (6-13) BUN 15 (6-20) mg/dL Creatinine 0.7 (0.4-1.0) mg/dL Estimated GFR (MDRD) 80 L (>89) Glucose 69 L (70-100) mg/dL Calcium 8.0 L (8.5-10.3) mg/dL Impression and Recommendations - Palliative Care Impression: Nemo 84-year-old woman with 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 She now presents with aspiration pneumonia, continuing disc Macchia, able to eat and drink only small amounts. She is currently being supported in the hospital with hydration, and antibiotics. Goal is to transition to hospice on discharge, recognizing patient is changing fairly quickly. Palliative care to provide support and anticipatory guidance and transition to hospice discharge Recommendations/Counseling Done: 1. Pain of neoplastic origin. Patient does not have morphine available for PRN dosing, at this point time she reports she is on she is comfortable. Would recommend ordering morphine sulfate 20 mg/ml at 5 mg every 2 hours, to trial prior to discharge for comfort if needed. Patient does have a bottle at home previously ordered by palliative care. 2. Malignant neck wound. Did follow-up with nursing, wound care has no other dressing change recommended they are the one that recommended current dressing change this is in my note from yesterday. Including applying the lidocaine jelly. 3. Aspiration pneumonia. Patient is quite frail, does appear she is responding some, but continues with weak cough, and abnormal breath sounds. Patient has oxygen ordered through hospice on discharge, patient given her frailty most likely with recurrent aspiration and declining status, may or may not respond or improve. 4. Advanced care planning. Patient's continued expression for wishes for focus on comfort, is now in agreement with this. Family is at the bedside both son and , reviewed again hospice benefit, will continue to provide support, will complete comfort focused POLST prior to discharge tomorrow. Time Spent: 30 minutes with getting 50% of this and in counseling with patient and family, regarding transition to hospice, goals of care, and anticipatory guidance.
[2020-07-05] MEDS ORDERED: diltiaZEM CD 240 MG CAPSULE PO SCH (21:00)
[2020-07-06] MEDS: D5.45NS W/20 MEQ KCL 1,000 ML IV SCH ×2 (04:38→16:53)
[2020-07-06 05:49] LABS: EOSINOPHILS % (AUTO) 1.8 %; HGB - HEMOGLOBIN 10.3 g/dL (12.0-16.0); LYMPHOCYTES % (AUTO) 3.6 %; MEAN CORPUSCULAR HEMOGLOBIN 24.3 pg (27.0-31.0); MEAN CORPUSCULAR HGB CONC 30.5 g/dL (32.0-36.0); MEAN CORPUSCULAR VOLUME 79.7 fL (81.0-99.0); MEAN PLATELET VOLUME 9.3 fL (7.9-10.8); MONOCYTES % (AUTO) 4.1 %; NEUTROPHILS % (AUTO) 78.3 %; PLT - PLATELET COUNT 331 10^3/uL (130-450); RED BLOOD COUNT 4.24 10^6/uL (4.20-5.40); RED CELL DISTRIBUTION WIDTH 23.7 % (12.0-15.0)
[2020-07-06 05:50] LABS: INR 1.7 (0.8-1.2)
[2020-07-06 05:54] LABS: WHITE BLOOD COUNT 36.8 x10^3/uL (4.8-10.8)
[2020-07-06 05:55] LABS: ABNORMAL LYMPHS % (MANUAL) 0 %
[2020-07-06 05:57] LABS: CALCIUM 8.5 mg/dL (8.5-10.3); CREATININE 0.7 mg/dL (0.4-1.0)
[2020-07-06 06:10] LABS: BAND NEUTROPHILS % (MANUAL) 6 %; DIFFERENTIAL COMMENT MANUAL DIFFERENTIAL; EOSINOPHILS # (MANUAL) 1.1 10^3/uL (0-0.7); LYMPHOCYTES # (MANUAL) 0.7 10^3/uL (1.5-3.5); LYMPHOCYTES % (MANUAL) 2 %; METAMYELOCYTES % (MANUAL) 3 %; MONOCYTES # (MANUAL) 1.8 10^3/uL (0.0-1.0); MYELOCYTES % (MANUAL) 3 %; PLATELET ESTIMATE, MANUAL NORMAL (130-450,000) (NORMAL); RBC MORPHOLOGY (MULTIPLE) NORMAL APPEARANCE (NORMAL)
[2020-07-06] MEDS: PANTOPRAZOLE 40 MG VIAL IVP SCH (06:14)
[2020-07-06] MEDS: SODIUM CHLORIDE FLUSH 0.9% 10 ML SYRINGE IVP PRN (06:14)
[2020-07-06] MEDS: PIPERACILLIN/TAZOBACTAM 3.375 GM in SODIUM CHLORIDE 0.9% MINIBAG 100 ML IV SCH ×3 (06:14→22:00)
[2020-07-06] MEDS: DIGOXIN 125 MCG TABLET PO SCH ×2 (09:18→13:30)
[2020-07-06] MEDS: SODIUM CHLORIDE FLUSH 0.9% 10 ML SYRINGE IVP SCH ×3 (09:18→23:52)
[2020-07-06] MEDS: LIDOCAINE/PRILOCAINE 2.5% CREAM 5 GM TUBE TOP SCH (09:18)
[2020-07-06] MEDS: WARFARIN 1 MG TABLET PO SCH (13:32)
--- NOTE | 2020-07-06 15:11 | PROVIDER PROGRESS NOTE ---
Assessment/Plan - Problem List (1) Pneumonia Qualifiers: Pneumonia type: due to unspecified organism Laterality: bilateral Lung location: unspecified part of lung Qualified Code(s): J18.9 - Pneumonia, unspecified organism Assessment/Plan: 07/06 hospice Team will deliver hospice equip to patient home today. Discharge the patient home on tomorrow with hospice care. Patient request resume patient home medication digoxin, Cardizem, tramadol. Continue antibiotics Zosyn for patient aspiration pneumonia. Chest x-ray show patchy basilar atelectasis plus consolidation. This is a presumed aspiration pneumonia because of the extensive abnormality of her neck and throat, she chokes with liquids which was witnessed. COVID test is neg, Continue with IV antibiotic Zosyn until d/c Continue with supplemental oxygen Continue with IV hydration (2) Squamous cell carcinoma of skin of other parts of face Assessment/Plan: 07/06Wound care saw the patient, patient has a wound address on her neck, will continue hospice care after d/c There is drainage from the upper part of the neck and basal part of the jaw, continue wound consult. Patient's and patient self right now requests for hospice care. Keep patient comfortable measure. Continue with topical care. She denies any pain in this area. (3) Atrial fibrillation Assessment/Plan: Heart rate is well controlled.Continue Coumadin, Continue Cardizem, And digoxin, per Patient's requests (4) Elevated INR Assessment/Plan: Resolved, will continue Coumadin, continue PT and INR check until discharge (5) Myeloproliferative disorder Assessment/Plan: She has a chronic white blood cell elevation. Follow CBC daily (6)Encounter for hospice care Per palliative care provider, Patient self want to have hospice care, now her agree to have hospice care for pt, hospice team will come to patient home after tomorrow and hospice equipment will be delivered to the patient home on tomorrow. - Current Meds Current Meds: Current Medications Generic Name Dose Route Start Last Admin Trade Name Freq PRN Reason Stop Dose Admin Digoxin 125 mcg 07/05/20 13:00 07/06/20 13:30 Lanoxin PO 125 mcg DAILY JADA Administration Diltiazem HCl 60 mg 07/06/20 04:00 07/06/20 09:18 Cardizem PO Not Given Q6H JADA Piperacillin Sod/Tazobactam 100 mls @ 25 mls/hr 07/03/20 14:00 07/06/20 13:31 Sod 3.375 gm/ Sodium Chloride IV 07/10/20 13:59 25 mls/hr Q8H JADA Administration Potassium Chloride/Dextrose/Sod Cl 1,000 mls @ 83.333 mls/hr 07/05/20 15:00 07/06/20 04:38 D5.45ns W/20 Meq Kcl IV 83.333 mls/hr .Q12H JADA Administration Lidocaine/Prilocaine 1 applic 07/06/20 09:00 07/06/20 09:18 Emla 2.5% Cream TOP Not Given DAILY JADA Pantoprazole Sodium 40 mg 07/03/20 07:00 07/06/20 06:14 Protonix IVP 40 mg QDAC JADA Administration Petrolatum 1 applic 07/03/20 19:55 07/03/20 22:17 Vaseline TOP 1 applic PRN PRN Administration Dry Lips Sodium Chloride 10 ml 07/02/20 22:26 07/06/20 06:14 Normal Saline Flush 0.9% IVP 10 ml PRN PRN Administration NEEDED PER PROVIDER ORDERS Sodium Chloride 10 ml 07/03/20 01:00 07/06/20 09:18 Normal Saline Flush 0.9% IVP 10 ml 0100,0900,1700 JADA Administration Tramadol HCl 50 mg 07/05/20 16:52 07/05/20 19:02 Ultram PO 50 mg PRN PRN Administration PAIN Warfarin Sodium 3 mg 07/04/20 14:00 07/06/20 13:32 Coumadin PO 3 mg 1400 JADA Administration - Lab Result Fish Bone Diagrams: 07/06/20 05:25 07/06/20 05:25 - Additional Planning My Orders: My Active Orders 07/05/20 15:00 D5.45ns W/20 Meq KCl 1,000 ml IV 83.333 mls/hr 07/05/20 16:52 traMADol [Ultram] 50 mg PO PRN PRN 07/06/20 09:00 Lidocaine/Prilocain 2.5% Cream [Emla 2.5% Cream] 1 applic TOP DAILY 07/06/20 15:07 [place] Continuation and Care [RC] QSHIFT [place] Insertion [RC] QSHIFT Subjective - Subjective Nursing Reports: No Complaints Objective Vital Signs: Vital Signs - 24 hr 07/05/20 07/05/20 07/05/20 16:28 20:05 22:35 Temperature 37.1 C 37.2 C Heart Rate [ 93 86 Brachial] Respiratory 24 20 Rate Blood Pressure 153/66 H Blood Pressure 159/76 H 139/60 H [Left Brachial artery] O2 Saturation 93 96 07/06/20 07/06/20 07/06/20 00:43 04:39 04:56 Temperature 37.0 C 37.0 C Heart Rate [ 79 81 Brachial] Respiratory 16 18 Rate Blood Pressure 152/68 H Blood Pressure 136/66 H 152/68 H [Left Brachial artery] O2 Saturation 95 95 07/06/20 08:09 Temperature 37.1 C Heart Rate [ 80 Brachial] Respiratory 14 Rate Blood Pressure Blood Pressure 150/59 H [Left Brachial artery] O2 Saturation 94 Oxygen O2 Source Nasal cannula Oxygen Flow Rate 6 I&O (Last 24 Hrs): Intake and Output Totals x24h 07/04/20 07/05/20 07/06/20 23:59 23:59 23:59 Intake Total 3079.999 2296.667 1200 Output Total 2513 502 1257 Balance 2697.373 8768.667 50 General: Alert, No acute distress HEENT: Atraumatic Neuro: Alert Cardiovascular: Normal S1, Normal S2 Respiratory: Chest non-tender, No respiratory distress Abdomen: Normal bowel sounds, Soft Extremities: Normal pulses - Results Results: Laboratory Results WBC 36.8 x10^3/uL (4.8-10.8) H* 07/06/20 05:25 RBC 4.24 10^6/uL (4.20-5.40) 07/06/20 05:25 Hgb 10.3 g/dL (12.0-16.0) L 07/06/20 05:25 Hct 33.8 % (37.0-47.0) L 07/06/20 05:25 MCV 79.7 fL (81.0-99.0) L 07/06/20 05:25 MCH 24.3 pg (27.0-31.0) L 07/06/20 05:25 MCHC 30.5 g/dL (32.0-36.0) L 07/06/20 05:25 RDW 23.7 % (12.0-15.0) H 07/06/20 05:25 Plt Count 331 10^3/uL (130-450) 07/06/20 05:25 MPV 9.3 fL (7.9-10.8) 07/06/20 05:25 Neut # (Auto) Not Reportable 07/06/20 05:25 Lymph # (Auto) Not Reportable 07/06/20 05:25 [place] # (Auto) Not Reportable 07/06/20 05:25 Eos # (Auto) Not Reportable 07/06/20 05:25 Baso # (Auto) Not Reportable 07/06/20 05:25 Absolute Nucleated RBC Not Reportable 07/06/20 05:25 Total Counted 100 07/06/20 05:25 Band Neuts % (Manual) 6 % (0-10) 07/06/20 05:25 Abnorm Lymph % (Manual) 0 % 07/06/20 05:25 Metamyelocytes % 3 % (-0) H 07/06/20 05:25 Myelocytes % 3 % (-0) H 07/06/20 05:25 Nucleated RBC % Not Reportable 07/06/20 05:25 Neutrophils # (Manual) 30.9 10^3/uL (1.5-6.6) H 07/06/20 05:25 Lymphocytes # (Manual) 0.7 10^3/uL (1.5-3.5) L 07/06/20 05:25 Monocytes # (Manual) 1.8 10^3/uL (0.0-1.0) H 07/06/20 05:25 Eosinophils # (Manual) 1.1 10^3/uL (0-0.7) H 07/06/20 05:25 Basophils # (Manual) 0.0 10^3/uL (0-0.1) 07/06/20 05:25 Nucleated RBCs 1 % 07/02/20 19:41 Differential Comment MANUAL DIFFERENTIAL 07/06/20 05:25 Manual Slide Review Indicated 07/04/20 05:45 WBC Morphology NORMAL APPEARANCE (NORMAL) 07/05/20 05:18 Platelet Estimate NORMAL (130-450,000) (NORMAL) 07/06/20 05:25 Platelet Morphology NORMAL APPEARANCE (NORMAL) 07/05/20 05:18 RBC Morph Micro Appear NORMAL APPEARANCE (NORMAL) 07/06/20 05:25 PT 19.0 secs (9.9-12.6) H 07/06/20 05:25 INR 1.7 (0.8-1.2) H 07/06/20 05:25 APTT 46.5 secs (24.9-33.3) H 07/02/20 19:41 Sodium 138 mmol/L (135-145) 07/06/20 05:25 Potassium 4.0 mmol/L (3.5-5.0) 07/06/20 05:25 Chloride 110 mmol/L (101-111) 07/06/20 05:25 Carbon Dioxide 22 mmol/L (21-32) 07/06/20 05:25 Anion Gap 6.0 (6-13) 07/06/20 05:25 BUN 15 mg/dL (6-20) 07/06/20 05:25 Creatinine 0.7 mg/dL (0.4-1.0) 07/06/20 05:25 Estimated GFR (MDRD) 80 (>89) L 07/06/20 05:25 Glucose 120 mg/dL (70-100) H 07/06/20 05:25 Lactic Acid 1.5 mmol/L (0.5-2.2) 07/02/20 19:41 Calcium 8.5 mg/dL (8.5-10.3) 07/06/20 05:25 Magnesium 1.8 mg/dL (1.7-2.8) 07/04/20 05:40 Total Bilirubin 1.3 mg/dL (0.2-1.0) H 07/02/20 19:41 AST 23 IU/L (10-42) 07/02/20 19:41 ALT 18 IU/L (10-60) 07/02/20 19:41 Alkaline Phosphatase 92 IU/L (42-121) 07/02/20 19:41 Total Protein 6.2 g/dL (6.7-8.2) L 07/02/20 19:41 Albumin 3.4 g/dL (3.2-5.5) 07/02/20 19:41 Globulin 2.8 g/dL (2.1-4.2) 07/02/20 19:41 Albumin/Globulin Ratio 1.2 (1.0-2.2) 07/02/20 19:41 Lipase 24 U/L (22-51) 07/02/20 19:41 Urine Color YELLOW 07/02/20 20:36 Urine Clarity CLOUDY (CLEAR) 07/02/20 20:36 Urine pH 5.5 PH (5.0-7.5) 07/02/20 20:36 Ur Specific Reyn[place] 1.025 (1.002-1.030) 07/02/20 20:36 Urine Protein TRACE mg/dL (NEGATIVE) 07/02/20 20:36 Urine Glucose (UA) NEGATIVE mg/dL (NEGATIVE) 07/02/20 20:36 Urine Ketones NEGATIVE mg/dL (NEGATIVE) 07/02/20 20:36 Urine Occult Blood MODERATE (NEGATIVE) H 07/02/20 20:36 Urine Nitrite NEGATIVE (NEGATIVE) 07/02/20 20:36 Urine Bilirubin NEGATIVE (NEGATIVE) 07/02/20 20:36 Urine Urobilinogen 0.2 (NORMAL) E.U./dL (NORMAL) 07/02/20 20:36 Ur Leukocyte Esterase TRACE (NEGATIVE) H 07/02/20 20:36 Urine RBC TNTC /HPF (0-5) H 07/02/20 20:36 Urine WBC 11-25 /HPF (0-5) H 07/02/20 20:36 Ur Epithelial Cells RARE Transitional /HPF (<= Few) FEW Renal Tubular /HPF (<= Few) 07/02/20 20:36 Ur Epithelial Cells RARE Transitional /HPF (<= Few) FEW Renal Tubular /HPF (<= Few) 07/02/20 20:36 Ur Squamous Epith Cells RARE Squamous (<= Few) 07/02/20 20:36 Urine Crystals 6-10 Calcium Oxalate /LPF 07/02/20 20:36 Urine Bacteria Few /HPF (None Seen) 07/02/20 20:36 Ur Microscopic Review INDICATED 07/02/20 20:36 Urine Culture Comments INDICATED 07/02/20 20:36 Coronavirus (PCR) NEGATIVE 07/02/20 20:10 - Procedures Procedures: Procedures PACKED CELL TRANSFUSION (01/16/14) Sepsis Event Note (H) - Evaluation Possible source of Sepsis: positive: Pulmonary, Genitourinary ABX Reporting Has patient been on IV antibiotics over the past 48 hours?: Yes Current Medications - Current Medications Current Medications: Active Medications Digoxin (Lanoxin) 125 mcg PO DAILY [facility] Last Admin: 07/06/20 13:30 Dose: 125 mcg Documented by: Diltiazem HCl (Cardizem) 60 mg PO Q6H [facility] Last Admin: 07/06/20 09:18 Dose: Not Given Documented by: Piperacillin Sod/Tazobactam (Sod 3.375 gm/ Sodium Chloride) 100 mls @ 25 mls/hr IV Q8H [facility] Stop: 07/10/20 13:59 Last Admin: 07/06/20 13:31 Dose: 25 mls/hr Documented by: Potassium Chloride/Dextrose/Sod Cl (D5.45ns W/20 Meq Kcl) 1,000 mls @ 83.333 mls/hr IV .Q12H [facility] Last Admin: 07/06/20 04:38 Dose: 83.333 mls/hr Documented by: Lidocaine/Prilocaine (Emla 2.5% Cream) 1 applic TOP DAILY [facility] Last Admin: 07/06/20 09:18 Dose: Not Given Documented by: Mineral Oil (Cavilon) 1 applic TOP PRN PRN PRN Reason: Skin Care Morphine Sulfate (Morphine (Carpuject)) 2 mg IVP Q2HR PRN PRN Reason: PAIN Pantoprazole Sodium (Protonix) 40 mg IVP QDAC [facility] Last Admin: 07/06/20 06:14 Dose: 40 mg Documented by: Petrolatum (Vaseline) 1 applic TOP PRN PRN PRN Reason: Dry Lips Last Admin: 07/03/20 22:17 Dose: 1 applic Documented by: Sodium Chloride (Normal Saline Flush 0.9%) 10 ml IVP PRN PRN PRN Reason: NEEDED PER PROVIDER ORDERS Last Admin: 07/06/20 06:14 Dose: 10 ml Documented by: Sodium Chloride (Normal Saline Flush 0.9%) 10 ml IVP 0100,0900,1700 [facility] Last Admin: 07/06/20 09:18 Dose: 10 ml Documented by: Tramadol HCl (Ultram) 50 mg PO PRN PRN PRN Reason: PAIN Last Admin: 07/05/20 19:02 Dose: 50 mg Documented by: Warfarin Sodium (Coumadin) 3 mg PO 1400 [facility] Last Admin: 07/06/20 13:32 Dose: 3 mg Documented by: Digoxin 125 mcg PO DAILY 04/02/13 Diltiazem HCl [Diltiazem 24Hr ER] 240 mg PO QPM 03/20/20 Warfarin [Coumadin] 5 mg PO QDWARFARIN 05/10/20 bisacodyL [Dulcolax] 1 tab PO DAILY PRN 06/21/20 Lidocaine/Prilocain 2.5% Cream [Emla 2.5% Cream] 1 applic TOP DAILY PRN 06/23/20 Morphine Sulfate [Morphine Sulf Oral (Roxanol)] 5 mg PO .Q2 PRN 06/23/20 Tramadol HCl 50 mg PO PRN PRN 07/04/20 Warfarin Sodium 2.5 mg PO QDWARFARIN 07/04/20
[2020-07-07] MEDS: D5.45NS W/20 MEQ KCL 1,000 ML IV SCH (02:40)
[2020-07-07] MEDS: PIPERACILLIN/TAZOBACTAM 3.375 GM in SODIUM CHLORIDE 0.9% MINIBAG 100 ML IV SCH (05:46)
[2020-07-07] MEDS: PANTOPRAZOLE 40 MG VIAL IVP SCH (05:46)
[2020-07-07 05:47] LABS: BASOPHILS % (AUTO) 0.8 %; EOSINOPHILS % (AUTO) 2.5 %; HGB - HEMOGLOBIN 9.5 g/dL (12.0-16.0); INR 1.9 (0.8-1.2); MEAN CORPUSCULAR HEMOGLOBIN 24.3 pg (27.0-31.0); MEAN CORPUSCULAR HGB CONC 30.7 g/dL (32.0-36.0); MEAN PLATELET VOLUME 9.6 fL (7.9-10.8); MONOCYTES % (AUTO) 4.5 %; NEUTROPHILS % (AUTO) 76.9 %; PLT - PLATELET COUNT 275 10^3/uL (130-450); PT - PROTHROMBIN TIME 21.2 secs (9.9-12.6); RED BLOOD COUNT 3.91 10^6/uL (4.20-5.40); RED CELL DISTRIBUTION WIDTH 24.4 % (12.0-15.0); WHITE BLOOD COUNT 28.9 x10^3/uL (4.8-10.8)
[2020-07-07] MEDS: SODIUM CHLORIDE FLUSH 0.9% 10 ML SYRINGE IVP PRN (05:47)
[2020-07-07 05:49] LABS: CALCIUM 7.9 mg/dL (8.5-10.3); CREATININE 0.6 mg/dL (0.4-1.0)
[2020-07-07 05:50] LABS: ABNORMAL LYMPHS % (MANUAL) 0 %
[2020-07-07 06:23] LABS: BAND NEUTROPHILS % (MANUAL) 9 %; BASOPHILS # (MANUAL) 0.3 10^3/uL (0-0.1); BASOPHILS % (MANUAL) 1 %; DIFFERENTIAL COMMENT MANUAL DIFFERENTIAL; LYMPHOCYTES # (MANUAL) 1.7 10^3/uL (1.5-3.5); LYMPHOCYTES % (MANUAL) 6 %; MONOCYTES # (MANUAL) 2.3 10^3/uL (0.0-1.0); PLATELET ESTIMATE, MANUAL NORMAL (130-450,000) (NORMAL)
--- NOTE | 2020-07-07 08:51 | Discharge Plan ---
Discharge Plan Problem Reviewed?: Yes Disposition: 50 Hospice/Home DC/Xfer Condition: Serious Prescriptions: LORazepam [Ativan] 0.5 mg PO Q6H PRN #15 tablet PRN Reason: Anxiety Instruction Topics: Hospice Health Concerns: hospice care Plan of Treatment: you may followup with hospice care Care Goals: quality of life, and comfort care and hospice care Assessment: discussed the care plan with you and you understood. Additional Instructions or Follow Up instructions: you may followup with hospice care when you are arrival to home No Smoking: If you smoke, Please STOP! Call for help. Follow-up with: Jian Haley MD [Primary Care Provider] -
--- NOTE | 2020-07-07 08:56 | DISCHARGE SUMMARY ---
"Discharge Summary Admit Date: 07/02/20 Discharge Date: 07/07/20 Discharging Provider: Edgar bill Primary Care Provider: Jian Carey Condition at Discharge: Serious Discharge Disposition: 50 Hospice/Home DC/Xfer Discharge Facility Name: home - DIAGNOSES Discharge Diagnoses with Status of Each Condition: (1) Pneumonia Patient was finished antibiotics treatment for her pneumonia in hospital. Patient discharged with hospice care (2) Squamous cell carcinoma of skin of other parts of face Patient had a dress change before discharge. Follow-up with hospice care (3) Atrial fibrillation Heart rate is controlled. Patient request, Continue Coumadin, Continue Cardizem, And digoxin, Follow-up with hospice care (4) Elevated INR Resolved (5) Myeloproliferative disorder stable as her baseline. (6)Encounter for hospice care Patient and the patient request hospice care, patient was discharge to home with hospice care. Hospice care medication morphine and ativan were prescribed - HPI History of Present Illness: refer from Dr. Dean's HPI on 07/02/2020 Patient is an 84-year-old female with history of metastatic squamous cell carcinoma and myeloproliferative disorder. 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 She currently has left neck mass and wound in the area with purulent drainage. She has been on Levaquin chronically for the wound. She sees Dr. Adalberto Bill at the [facility] clinic. The cancer appears to have progressed despite treatment which has included surgery, radiation therapy and chemotherapy. She is currently on chemo therapy with Keytruda. ENT and radiation oncology have said that the have no more therapy to offer. The patient has been seen by palliative (Barbara Velazquez). She presented to the ED today because she was not feeling well. Her is very involved in her care and brought her to the emergency room at her request. In the ED she was found to be hypoxic with an oxygen saturation of 70% on room air. She required 6 L of oxygen via nasal cannula to maintain her oxygen saturation is in the 90s. She does not use oxygen at home. She has difficulty swallowing as a result of her cancer and is at a high risk for aspiration. Work-up in the ED included a chest x-ray which showed patchy bibasilar atelecta sis versus consolidation. She had a white blood cell count of 34. 5 days ago it was 44. She is very frail and cachectic appearing. She denied chest pain, abdominal pain, nausea or vomiting. She is being admitted for further treatment. - CONSULTS | PROCEDURES Consultations: Palliative care and hospice referral Procedures: Discharge to home with hospice care - HOSPITAL COURSE Hospital Course: pt was admitted for hypoxic with an oxygen saturation of 70% on room air. She required 6 L of oxygen via nasal cannula to maintain her oxygen saturation is in the 90s. Work-up in the ED included a chest x-ray which showed patchy bibasilar atelectasis versus consolidation. pt has difficulty swallowing as a result of her cancer and is at a high risk for aspiration. Patient will be treated with antibiotics in the hospital for her likely aspiration pneumonia. Based on patient medical history, palliative care was consulted. pt has history of metastatic squamous cell carcinoma and myeloproliferative disorder and Metastasis to the submandibular area. ENT and radiation oncology have said that they have no more therapy to offer. Patient and agreed to have hospice care in her home after d/c. Wound care was consulted for patient, patient had wound care and dressing change in the hospital before discharge. - ALLERGIES Allergies/Adverse Reactions: Allergies Allergy/AdvReac Type Severity Reaction Status Date / Time clopidogrel bisulfate * Allergy Unknown unknown Verified 07/02/20 19:25 [From Plavix] - MEDICATIONS Home Medications: Ambulatory Orders Medication Instructions Recorded Confirmed Digoxin 125 mcg PO DAILY 04/02/13 07/03/20 Diltiazem HCl [Diltiazem 24Hr ER] 240 mg PO QPM 03/20/20 07/04/20 Warfarin [Coumadin] 5 mg PO QDWARFARIN 05/10/20 07/04/20 bisacodyL [Dulcolax] 1 tab PO DAILY PRN 06/21/20 07/04/20 Lidocaine/Prilocain 2.5% Cream 1 applic TOP DAILY PRN 06/23/20 07/03/20 [Emla 2.5% Cream] Morphine Sulfate [Morphine Sulf 5 mg PO .Q2 PRN 06/23/20 07/03/20 Oral (Roxanol)] Tramadol HCl 50 mg PO PRN PRN 07/04/20 07/04/20 Warfarin Sodium 2.5 mg PO QDWARFARIN 07/04/20 07/04/20 LORazepam [Ativan] 0.5 mg PO Q6H PRN #15 tablet 07/07/20 - PHYSICAL EXAM AT DISCHARGE General Appearance: positive: Alert, Mild distress. negative: Lethargic Eyes Bilateral: positive: Normal inspection, PERRL, No lid inflammation ENT: positive: No signs of dehydration. negative: ENT inspection nml, Pharynx nml, Purulent nasal drainage Neck: positive: Lymphadenopathy (R), Lymphadenopathy (L), Other (there appears tumor in the neck with drainage and lymphadenopathy in right and left). negative: Nml inspection, Stiff neck Respiratory: positive: Chest non-tender, No respiratory distress Cardiovascular: positive: Regular rate & rhythm, No murmur. negative: Tachycardia, Bradycardia, Systolic murmur, Diastolic murmur Peripheral Pulses: positive: 2+ Abdomen: positive: Non-tender, Nml bowel sounds, No distention. negative: Tenderness Back: positive: Nml inspection Skin: positive: Warm, Dry. negative: Diaphoresis, Pallor Extremities: positive: Non-tender, Nml appearance. negative: Calf tenderness Neurologic/Psychiatric: positive: Oriented x3, Sensation nml, Mood/affect nml. negative: Sensory loss, Facial droop, Slurred/abnml speech - LABS Result Diagrams: 07/07/20 05:25 07/07/20 05:25 - SEPSIS Possible source of Sepsis: Pulmonary, Genitourinary - FOLLOW UP Follow Up: followup with hospice care in the home - TIME SPENT Time Spent in Discharge (Minutes): 30"
[2020-07-07] MEDS: LIDOCAINE/PRILOCAINE 2.5% CREAM 5 GM TUBE TOP SCH ×2 (09:01→09:57)
[2020-07-07] MEDS: DIGOXIN 125 MCG TABLET PO SCH (09:01)
[2020-07-07] MEDS: SODIUM CHLORIDE FLUSH 0.9% 10 ML SYRINGE IVP SCH (09:01)
[2020-07-07 09:02] VITALS: BP 154/73
== END 2020-07-07 10:30 | disposition hospice, home (50) | DRG 178 ==
LOC: ED 19:10 → MS2 22:26
PROVIDERS: ADMIT Internal Medicine; ATTEND Nurse Practitioner Gerontology
DX: A41.9 Sepsis, unspecified organism (principal); R65.20 Severe sepsis without septic shock; R09.02 Hypoxemia; J69.0 Pneumonitis due to inhalation of food and vomit; E86.0 Dehydration; C94.6 Myelodysplastic disease, not elsewhere classified; C79.89 Secondary malignant neoplasm of other specified sites; N30.01 Acute cystitis with hematuria; C80.1 Malignant (primary) neoplasm, unspecified; E44.0 Moderate protein-calorie malnutrition; Z20.828 Contact with and (suspected) exposure to other viral communicable diseases; R53.83 Other fatigue; Z68.1 Body mass index [BMI] 19.9 or less, adult; C44.320 Squamous cell carcinoma of skin of unspecified parts of face; T81.31XD Disruption of external operation (surgical) wound, not elsewhere classified, subsequent encounter; Y83.8 Other surgical procedures as the cause of abnormal reaction of the patient, or of later complication, without mention of misadventure at the time of the procedure; G89.3 Neoplasm related pain (acute) (chronic); I48.91 Unspecified atrial fibrillation; R79.1 Abnormal coagulation profile; R13.10 Dysphagia, unspecified; K21.9 Gastro-esophageal reflux disease without esophagitis; R32 Unspecified urinary incontinence; H91.90 Unspecified hearing loss, unspecified ear; Z66 Do not resuscitate; Z51.5 Encounter for palliative care; Z79.01 Long term (current) use of anticoagulants; Z79.2 Long term (current) use of antibiotics; Z79.891 Long term (current) use of opiate analgesic; Z79.899 Other long term (current) drug therapy; Z95.0 Presence of cardiac pacemaker; Z92.3 Personal history of irradiation; Z87.891 Personal history of nicotine dependence
CPT/HCPCS: 36415; 71045; 80048; 80053; 81001; 83605; 83690; 83735; 85025; 85610; 85730; 87040; 87086; 96361; 96365; 99232; 99233; 99285; A6250; A9270; J3490; J7040; U0004; 81003

== ENCOUNTER 2020-07-07 10:32 | Outpatient (CLI) | payer MEDICARE | END 2020-07-07 10:33 | disposition hospice, home (50) | LOC: EMS 10:32 | PROVIDERS: ATTEND Surgery | DX: J18.9 Pneumonia, unspecified organism (principal); C80.1 Malignant (primary) neoplasm, unspecified; Z99.81 Dependence on supplemental oxygen | CPT/HCPCS: A0425; A0428 ==